=== PATIENT | male | born 1955 | race Caucasian/White ===

== ENCOUNTER 2016-06-22 04:01 | Emergency (ER) | payer MEDICAID, MEDICARE ==
[~2016-06-22] VITALS: Ht 195.6 cm; Wt 118.2 kg
[~2016-06-22 04:01] MED LIST: ALPR1TAB2 PO; FLUT9.9S NS; FURO40TA4 PO; LACT10SO60 PO; PANT40TA2 PO; SPIR100T3 PO; TR5C15 EXT
[2016-06-22 04:09] VITALS: BP 148/56; PULSE 66; RESP 18; O2SAT 98
--- NOTE | 2016-06-22 04:17 | ED.REPORT ---
HPI-General Illness Date of Service Jun 22, 2016 ED Provider: MD Prince This is a 61 year old male with a history of cirrhosis of the liver, chronic thrombocytopenia, hepatic encephalopathy, HTN, DM, GERD presenting to the ED complaining of generalized malaise that began 1 week ago. Associated symptoms include nausea, worsening SOB, and substernal chest pressure. Today he developed persistent hiccups. Denies vomiting, headache, dysuria, diarrhea, or constipation. Adds that his last dose of daily prescribed naltrexone was 3 days ago due to nausea. Nursing Notes Stated Complaint: CHEST PAIN Chief Complaint: Chest Pain Nursing Notes Reviewed: Yes Allergies: Coded Allergies: lisinopril (Verified Adverse Reaction, Intermediate, cough, 01/23/16) propranolol (Verified Adverse Reaction, Intermediate, PALPITATIONS, HEART RACES, 01/23/16) Scheduled Fluticasone Propionate (Flonase Allergy Relief) 50 Mcg/Actuation [place].susp 9.9 ML NS DAILY Furosemide (Furosemide) 40 Mg Tablet 40 MG PO MORNING Lactulose (Lactulose) 20 Gm/30 Ml Solution 50 GM PO TID Pantoprazole DR (Protonix) 40 Mg Tablet 40 MG PO DAILY Spironolactone (Spironolactone) 100 Mg Tablet 100 MG PO DAILY Scheduled PRN Alprazolam (Xanax) 1 Mg Tablet 1 MG PO TID PRN PRN For Anxiety Triamcinolone Acet (Triamcinolone Acetonide Cream) 4 Applic/Gm Cr 1 APPLIC EXT BID PRN PRN rash General Time Seen by MD: 04:17 Chief Complaint Not feeling well Hx Obtained From: Patient Arrived By: Walk-in Sudden in Onset?: Yes Onset Occurred: 1 week ago Symptom Duration: Since onset Severity: Current: Mild Pertinent Negative: Pt denies other symptoms Recent Healthcare: No recent doctor visit, No recent hospitalization Similar Sx Previous: No Past Medical History Past Medical History Notes: Admit November 13-2015 for hepatic encephalopathy, PTSD, and benzodiazepine dependency Past Medical History Cirrhosis of liver (ETOH) chronic thrombocytopenia History of high hepatic encephalopathy Hypertension diabetes GERD PTSD History of spinal stenosis History of heart murmur Reports: Diabetes mellitus, GERD, Hypertension Past Surgical History None Family History Father had multiple [place]'s with his first being in the 30's Smoking History Light Tobacco Smoker Social History History of alcohol abuse, last drink 3 months ago Alcohol Use: In recovery Other Social History: Good social support, , Local resident Occupation Retired [employer] Ambulatory Status Independent Review of Systems Full Review of Systems Constitutional: Reports: Malaise, Denies: Chills, Fever Respiratory: Reports: Shortness of breath Cardiovascular: Reports: Chest pain GI: Reports: Nausea, Denies: Abdominal pain, Constipation, Diarrhea, Vomiting Neurologic: Denies: Headache Complete sys rev & neg: except as marked. Physical Exam Vital Signs Vital Signs Date Time Temp Pulse Resp B/P Pulse Ox O2 Delivery O2 Flow Rate FiO2 06/22/16 04:09 36.6 66 18 148/56 98 Room Air Initial VS: Reviewed Head / Eyes: Atraumatic, Normocephalic, PERRL Neck: Supple, Non-tender, Full range of motion Respiratory: Breath sounds normal, Clear to auscultation, No respiratory distress Cardiovascular: Regular rate & rhythm, Heart sounds normal, Intact distal pulses Abdomen / GI: Soft, Non-tender Extremities: Vascular intact, Neuro intact, No swelling, No tenderness Skin: Warm, Dry, No cyanosis Neurologic: Alert, Oriented, Nonfocal Psychiatric: Mood/affect normal, Behavior normal, Normal thought content General/Constitutional: Awake, Alert Appearance / Presentation: Positive: Obese ENT: Pharynx NL Mouth: Positive: Mucous membranes dry Interpretation & Diagnostics Lab Results Interpretation Result Diagram: 06/22/16 0425 06/22/16 0425 Test 06/22/16 04:25 White Blood Count 5.4th/mm3 (3.8-10.1) Red Blood Count 4.60mil/mm3 (4.40-5.80) Hemoglobin 12.4g/dL (13.8-17.2) Hematocrit 37.4% (41.0-50.0) Mean Corpuscular Volume 81.3fL (81-100) Mean Corpuscular Hemoglobin 27.0pg (27.0-35.0) Mean Corpuscular Hemoglobin Concent 33.2% (32.0-37.0) Red Cell Distribution Width 16.6% (12.3-15.4) Platelet Count 109bil/L (150-400) Neutrophils (%) (Auto) 65.1% (40-74) Lymphocytes (%) (Auto) 17.5% (14-46) Monocytes (%) (Auto) 9.7% (4-12) Eosinophils (%) (Auto) 6.0% (0-5) Basophils (%) (Auto) 1.3% (0-3) Prothrombin Time 13.1sec (8.1-12.5) Prothromb Time International Ratio 1.22ratio Activated Partial Thromboplast Time 28.2sec (22.8-33.0) Sodium Level 136mEq/L (134-144) Potassium Level 3.9mEq/L (3.5-5.2) Chloride Level 102mEq/L (97-108) Carbon Dioxide Level 25mmol/L (18-29) Blood Urea Nitrogen 10mg/dL (6-24) Creatinine 0.46mg/dL (0.76-1.27) Estimat Glomerular Filtration Rate 199mL/min (>59) Glucose Level 214mg/dL (60-99) Calcium Level 8.3mg/dL (8.5-10.1) Magnesium Level 1.6mg/dL (1.6-2.6) Total Bilirubin 1.5mg/dL (0.0-1.2) Aspartate Amino Transf (AST/SGOT) 62U/L (0-50) Alanine Aminotransferase (ALT/SGPT) 41U/L (0-44) Alkaline Phosphatase 174U/L (25-160) Troponin T 0.010ug/L (0.0-0.011) Pro-B-Type Natriuretic Peptide 88.42pg/mL (0-210) Total Protein 6.8g/dL (6.4-8.4) Albumin 2.7g/dL (3.4-5.0) Hold Guerra Top Tube Received (Received) ECG Interpretation ECG Interpretation: NSR at a rate of 65 Time: 04:30 Interpreted by: ED physician Re-Eval/Medical Decision Med Decision/Clinical Course 61-year-old with cirrhosis, anxiety, PTSD, presents with chest pressure and pain associated with nausea and vomiting. This appears to be primarily result of nausea and vomiting and esophagitis, but await completion of rule out protocol. He may have some element of withdrawal from the ultrasound, as he stopped abruptly three days ago. He is given a dose here. Signed out at [address] Kebede for completion of rule out and disposition. Counseled Regarding: Diagnosis, Lab results, Need for follow-up Discharge & Departure Primary Impression: Chest pain Discharge Condition All VS Reviewed: Yes Condition: Stable Referrals: Peter Newman DO (PCP) Care Transferred to: Delio Stallworth Care Transferred at: 06:00 Scribe Attestation Portions of this note were transcribed by Sachin Bergeron. I, Dr. Morrison personally performed the history, physical exam and medical decision-making; I reviewed and confirmed the accuracy of the information in the transcribed note. Signed by: cristina Corbett. 06/21/2016, 04:30. Cristo Morrison MD Jun 22, 2016 04:17 SACHIN BERGERON Jun 22, 2016 04:27
[2016-06-22] MEDS ORDERED: 0.9% Sodium Chloride 1,000 ML IV ONE (04:24)
[2016-06-22] MEDS ORDERED: Pantoprazole 4 mg/mL 10 mL Inj IVPUSH ONE (04:25)
[2016-06-22] MEDS ORDERED: Promethazine Inj 25 MG in Dextrose 5%-Pha MIX 50 ML IV ONE ×2 (04:30→07:20)
[2016-06-22 04:38] LABS: BASOPHILS % (AUTO) 1.3 % (0-3); MONOCYTES % (AUTO) 9.7 % (4-12); Mean Corpuscular Volume 81.3 fL (81-100); NEUTROPHILS % (AUTO) 65.1 % (40-74); Platelet Count 109 bil/L (150-400)
[2016-06-22 05:04] LABS: INR 1.22 ratio
[2016-06-22 05:09] LABS: TROPONIN T 0.01 ug/L (0.0-0.011)
[2016-06-22 05:21] LABS: Magnesium 1.6 mg/dL (1.6-2.6)
[2016-06-22 08:24] LABS: Ammonia 112 ug/dL (18-53)
[2016-06-22] MEDS ORDERED: Lactulose 20 Gm/30 mL 30 mL Syrup PO ONE (08:50)
--- NOTE | 2016-06-22 09:25 | DRSVH ---
PROCEDURE: X-RAY CHEST ONE VIEW, PORTABLE ([id number]) INDICATIONS: cp TECHNIQUE: One view of the chest was acquired. COMPARISON: [facility], CR, XR CHEST 1VW (PORTABLE), 02/22/2015, 14:39. FINDINGS: Surgical changes and devices: None. Lungs and pleura: No pleural effusions or pneumothorax. Lungs are clear, aside from mild interstiti al prominence.. Mediastinum: Mediastinal contours appear normal. Heart size is enlarged. Bones and chest wall: No suspicious bony lesions. Overlying soft tissues appear unremarkable. IMPRESSION: Cardiomegaly and mild interstitial prominence suspicious for developing edema. Correlate clinically. Dictated by: Jaguar CARRILLO Interpreted: Tri Stern MD on 06/22/2016 at 9:25 Transcribed by: WESLEY on 06/22/2016 at 9:25 Approved by: Tri Stern M.D. on 06/22/2016 at 13:37
[2016-06-22] MEDS ORDERED: CHLO25CA10 PO (11:09)
[2016-06-22] MEDS ORDERED: LEVO330T2 PO (12:14)
[2016-06-22 12:29] VITALS: BP 145/84; PULSE 71; RESP 16; O2SAT 98
== END 2016-06-22 12:31 | disposition home or self-care (01) ==
LOC: SED 04:01
DX: R07.2 Precordial pain (principal); K76.9 Liver disease, unspecified; F41.8 Other specified anxiety disorders; F43.0 Acute stress reaction; G47.00 Insomnia, unspecified; F43.10 Post-traumatic stress disorder, unspecified; R11.0 Nausea; R06.02 Shortness of breath; R06.6 Hiccough; I10 Essential (primary) hypertension; K21.9 Gastro-esophageal reflux disease without esophagitis; E11.9 Type 2 diabetes mellitus without complications; F17.200 Nicotine dependence, unspecified, uncomplicated; Z88.8 Allergy status to other drugs, medicaments and biological substances
CPT/HCPCS: 36415; 71010; 80053; 82140; 82948; 83735; 83880; 84484; 85025; 85610; 85730; 90791; 93005; 96361; 96374; 96375; 96376; 99285; G0480; J2060; J7030

== ENCOUNTER 2016-07-03 22:31 | Inpatient (IN) | payer MEDICARE, MEDICAID ==
[~2016-07-03] VITALS: Ht 198.1 cm; Wt 129.9 kg
[~2016-07-03 22:31] MED LIST changes: +CHLO25CA10 PO; +LEVO330T2 PO
[2016-07-03 22:33] VITALS: BP 144/65; PULSE 83; RESP 18; O2SAT 100
[2016-07-03 23:14] LABS: Ammonia 118 ug/dL (18-53)
[2016-07-03 23:17] LABS: BASOPHILS % (AUTO) 0.7 % (0-3); EOSINOPHILS % (AUTO) 4.1 % (0-5); MONOCYTES % (AUTO) 6.4 % (4-12); Mean Corpuscular Hemoglobin 27.2 pg (27.0-35.0); Mean Corpuscular Volume 80.4 fL (81-100); NEUTROPHILS % (AUTO) 75.9 % (40-74); Platelet Count 100 bil/L (150-400)
[2016-07-03] MEDS ORDERED: Thiamine Inj 100 MG, Folic Acid Inj 1 MG, Magnesium Sulfate 50% Inj 2 GM, Multivitamins... IV ONE ×5 (23:45)
[2016-07-03 23:55] LABS: APPEARANCE,URINE CLEAR (CLEAR,HAZY); COLOR,URINE STRAW (YELLOW)
[2016-07-03 23:56] LABS: OCCULT BLOOD,URINE NEGATIVE (NEGATIVE); UROBILINOGEN,URINE NORMAL (NORMAL)
[2016-07-04] VITALS (10 sets, daily range): BP systolic 120–150; BP diastolic 70–83; PULSE 76–86; RESP 16–20; O2SAT 99–100
--- NOTE | 2016-07-04 00:05 | ED.REPORT ---
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 Patient says he feels fine otherwise aside from nausea and severe head pain on his left mastoid. Patient mentioned several times that he needs help with alcohol detoxification. Nursing Notes Stated Complaint: FALL DOWN STAIRS, ETOH Chief Complaint: Multiple Trauma/Fall Nursing Notes Reviewed: Yes Allergies: Coded Allergies: lisinopril (Verified Adverse Reaction, Intermediate, cough, 01/23/16) propranolol (Verified Adverse Reaction, Intermediate, PALPITATIONS, HEART RACES, 01/23/16) Scheduled ([Abilify]) MG PO DAILY ([Metformin]) MG PO BID ([mirtazapine]) MG PO HS Fluticasone Propionate (Fluticasone Propionate Nasal) 16 Gm [place].susp 1 SPRAY NS BID Furosemide (Furosemide) 40 Mg Tablet 40 MG PO DAILY Gabapentin (Gabapentin) 300 Mg Capsule 300 MG PO TID Levocarnitine (Levocarnitine) 330 Mg Tablet 330 MG PO DAILY Loratadine (Claritin) 10 Mg Capsule 10 MG PO DAILY Pantoprazole DR (Protonix) 40 Mg Tablet 40 MG PO DAILY Quetiapine Fumarate (Seroquel) 50 Mg Tablet 50 MG PO HS Spironolactone (Spironolactone) 100 Mg Tablet 100 MG PO DAILY Triamcinolone Acet (Triamcinolone Acetonide Cream) 4 Applic/Gm Cr 1 APPLIC TOP BID General Time Seen by MD: 21:50 Chief Complaint Other (alcohol intoxication and head trauma.) Hx Obtained From: Patient Sudden in Onset?: Yes Caused by: Accidental, Fall down stairs Location: : Hand right: Head (left mastoid) Past Medical History Past Medical History Notes: Admit November 13-2015 for hepatic encephalopathy, PTSD, and benzodiazepine dependency Past Medical History Cirrhosis of liver (ETOH) chronic thrombocytopenia History of high hepatic encephalopathy Hypertension diabetes GERD PTSD History of spinal stenosis History of heart murmur Reports: Diabetes mellitus, GERD, Hypertension Past Surgical History None Family History Father had multiple [place]'s with his first being in the 30's Smoking History Current Every Day Smoker Social History History of alcohol abuse, last drink 3 months ago Alcohol Use: In recovery Other Social History: Good social support, , Local resident Occupation Retired [employer] Ambulatory Status Independent Review of Systems A comprehensive review of systems was conducted with the patient and found to be negative except as above in the History of Present Illness. Physical Exam General: No acute distress, well-developed, well-nourished, appropriately interactive HEENT: Normocephalic, Left mastoid minor laceration without repair. External ears without defect with b/l cerumen impactions. Pupils equal, round, and reactive to light and accommodation. Anicteric sclerae, moist conjunctivae, and no lid lag. Oropharynx free of erythema and cobble stoning with moist mucosa. Neck: Supple with full range of motion. No jugular venous distension. No bruits. No lymphadenopathy or thyromegaly. Cardiovascular: Regular rate and rhythm with no murmurs, rubs, or gallops appreciated Pulmonary: Clear to auscultation bilaterally with no crackles, wheezes, or rhonchi. Normal respiratory effort with no use of accessory muscles. Abdomen: Bowel tones present. Soft and obese, nontender, nondistended. Significant hepatomegaly present no masses appreciated. Extremities: No clubbing, cyanosis, edema, or lymphadenopathy appreciated. Right hand abrasion present. Skin: Normal temperature, turgor, and texture; no rash, ulcers, or subcutaneous nodules appreciated. Neurological: Cranial nerves grossly intact. Normal muscle strength, tone, and bulk. Reflexes, coordination, and sensory function within normal limits. Ataxia with no ambulatory aid devices. Psychiatric: Normal mood and affect with alcohol intoxication. Alert and oriented to person, place, and time. Vital Signs Vital Signs Date Time Temp Pulse Resp B/P Pulse Ox O2 Delivery O2 Flow Rate FiO2 07/03/16 22:33 36.7 83 18 144/65 100 Room Air Interpretation & Diagnostics Lab Results Interpretation Result Diagram: 07/03/16224507/03/162245 Test 07/03/16 22:45 07/03/16 22:46 07/03/16 22:50 Hold Guerra Top Tube Received (Received) White Blood Count 7.1th/mm3 (3.8-10.1) Red Blood Count 5.14mil/mm3 (4.40-5.80) Hemoglobin 14.0g/dL (13.8-17.2) Hematocrit 41.3% (41.0-50.0) Mean Corpuscular Volume 80.4fL (81-100) Mean Corpuscular Hemoglobin 27.2pg (27.0-35.0) Mean Corpuscular Hemoglobin Concent 33.9% (32.0-37.0) Red Cell Distribution Width 16.8% (12.3-15.4) Platelet Count 100bil/L (150-400) Neutrophils (%) (Auto) 75.9% (40-74) Lymphocytes (%) (Auto) 12.6% (14-46) Monocytes (%) (Auto) 6.4% (4-12) Eosinophils (%) (Auto) 4.1% (0-5) Basophils (%) (Auto) 0.7% (0-3) Prothrombin Time 12.1sec (8.1-12.5) Prothromb Time International Ratio 1.13ratio Sodium Level 136mEq/L (134-144) Potassium Level 3.6mEq/L (3.5-5.2) Chloride Level 99mEq/L (97-108) Carbon Dioxide Level 21mmol/L (18-29) Blood Urea Nitrogen 9mg/dL (6-24) Creatinine 0.62mg/dL (0.76-1.27) Estimat Glomerular Filtration Rate 141mL/min (>59) Glucose Level 327mg/dL (60-99) Calcium Level 8.9mg/dL (8.5-10.1) Magnesium Level 1.7mg/dL (1.6-2.6) Total Bilirubin 1.4mg/dL (0.0-1.2) Aspartate Amino Transf (AST/SGOT) 53U/L (0-50) Alanine Aminotransferase (ALT/SGPT) 39U/L (0-44) Alkaline Phosphatase 187U/L (25-160) Ammonia 118ug/dL (18-53) Total Protein 8.2g/dL (6.4-8.4) Albumin 3.6g/dL (3.4-5.0) Alcohol, Quantitative 136mg/dL (0-10) Urine Color Straw (YELLOW) Urine Appearance Clear (CLEAR,HAZY) Urine pH 6.0 (5.0-8.0) Urine Specific Kathleen 1.005 (1.003-1.035) Urine Protein Negativemg/dL (NEG,TRACE) Urine Glucose (UA) >1000mg/dL (NEGATIVE) Urine Ketones Negativemg/dL (NEGATIVE) Urine Occult Blood Negative (NEGATIVE) Urine Nitrite Negative (NEGATIVE) Urine Bilirubin Negative (NEGATIVE) Urine Urobilinogen Normalmg/dL (NORMAL) Urine Leukocyte Esterase Negative (NEGATIVE) Urine RBC 0-2/hpf (0-2) Urine WBC 0-5/hpf (0-5) Urine Epithelial Cells Occasional/hpf (NONE-MOD) Urine Crystals None seen (NONE SEEN) Urine Bacteria None/hpf (NONE-FEW) Urine Hyaline Casts None/lpf (NONE) Urine Granular Casts None seen (NONE SEEN) Urine Waxy Casts None seen (NONE SEEN) Urine Red Blood Cell Casts None seen (NONE SEEN) Urine White Blood Cell Casts None seen (NONE SEEN) Urine Mucus None seen (None Seen) Urine Trichomonas None seen (NONE SEEN) Urine Yeast None (NONE SEEN) Urine Culture Reflexed Not indicated Re-Eval/Medical Decision Med Decision/Clinical Course 61-year-old with chronic alcohol abuse and cirrhosis, presents intoxicated and wishing for detox. He is variably reported his drinking as heavily and daily, and then later only having relapsed recently. He states he is unable to quit drinking without assistance, but has been through detox efforts before with brief periods of sobriety. Given his significant liver disease, his chronic hyperammonemia, and his past track record, it is felt that he would best be observed in inpatient setting for withdrawal. His psychosocial issues are long-term and of proven difficult to treat, but he may benefit from a long-term detox placement. Admitted now stable condition to the medicine service. Mr. Ghassan Moore is a 61-year-old male with a history of PTSD, alcoholic liver cirrhosis Child-Pitt class B, diabetes type II, hypertension, and normal pressure hydrocephalus reported to the ED by way of EMS after a fall down 7 stone stairs with head injury with loss of consciousness after alcohol intoxication. Patient says he feels fine otherwise aside from his severe head pain on his left mastoid. Patient mentioned several times that he needs help with alcohol detoxification. His ammonia is 118 and alcohol levels 136 as well as glucose at 327. He has significant alcohol liver cirrhosis and noncompliance of medications at home. He has significant pain in his left mastoid after his fall CT brain and cervical spine showed no fractures or other acute abnormalities. We will admit him for alcohol withdrawal. In the emergency department he received 1 L banana bag, 1 L normal saline, 1 mg IV Ativan, 15mg IV Toradol, 8mg Zofran IV. Time of Eval: 23:51 Patient Status: Condition improved Re-Evaluation/Progress Note: Patient is rechecked. Further history is obtained. He is informed of his results and the current treatment plan. All of the patient's questions are addressed. Patient understands and agrees with the plan. Discharge & Departure Shift Change Sign-Out Response to Therapy: Improved Primary Impression: Alcohol intoxication Additional Impressions: Alcohol withdrawal Cirrhosis Hepatic encephalopathy Disposition: ADMITTED TO HOSPITAL Referrals: Peter Newman DO (PCP) Scribe Attestation Portions of this note were transcribed by Ginny Champagne. I, Dr. Morrison personally performed the history, physical exam and medical decision-making; I reviewed and confirmed the accuracy of the information in the transcribed note. Signed by: Osbaldo Kelly, 07/04/16 0100. PARDEEP YANEZ DO Jul 04, 2016 00:05 GINNY CHAMPAGNE Jul 04, 2016 00:52 Cristo Morrison MD Jul 04, 2016 06:52
[2016-07-04] MEDS ORDERED: 0.9% Sodium Chloride 1,000 ML IV ONE (00:10)
[2016-07-04] MEDS ORDERED: Ketorolac 15 mg/mL Inj IVPUSH ONE (00:50)
[2016-07-04] MEDS ORDERED: Ondansetron 2 mg/mL 2 mL Inj IVPUSH ONE (00:50)
[2016-07-04] MEDS ORDERED: Thiamine Inj 100 MG, Folic Acid Inj 1 MG, Magnesium Sulfate 50% Inj 2 GM, Multivitamins... IV ONE ×5 (01:40)
[2016-07-04] MEDS ORDERED: Polyethylene Glycol (PEG) 17 Gm Powder PO PRN (01:40)
[2016-07-04] MEDS ORDERED: Alum-Mag Hydrox-Simeth 30 mL Suspension PO PRN (01:40)
[2016-07-04] MEDS ORDERED: MIRT30TA6 PO (03:16)
[2016-07-04] MEDS ORDERED: Metformin PO (03:16)
[2016-07-04] MEDS ORDERED: PANT40TA2 PO (03:16)
[2016-07-04] MEDS ORDERED: QUET50TA PO (03:16)
[2016-07-04] MEDS ORDERED: TR5C15 TOP (03:16)
[2016-07-04] MEDS ORDERED: GABA-502 PO (03:16)
[2016-07-04] MEDS ORDERED: Abilify PO (03:16)
[2016-07-04] MEDS ORDERED: FURO40TA4 PO (03:16)
[2016-07-04] MEDS ORDERED: FLUT16SP NS (03:16)
[2016-07-04] MEDS ORDERED: SPIR100T3 PO (03:16)
[2016-07-04] MEDS ORDERED: LEVO330T PO (03:16)
[2016-07-04] MEDS ORDERED: LORA10CA PO (03:17)
[2016-07-04] MEDS ORDERED: mirtazapine PO (03:19)
--- NOTE | 2016-07-04 04:11 | NUR ---
Admit: Pt admitted to [facility] room 2025. pt placed on Tele showing SR. Vitals stable. Health history and med rec completed via pt interview. pt unsure of some medication dosing- flagged for review. CIWA scored @13- 5mg IV valium. 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 Care ongoing.
[2016-07-04] MEDS ORDERED: Glucose 40% Oral Gel 15 Gm Tube PO PRN (04:50)
[2016-07-04 04:51] LABS: INR 1.13 ratio
--- NOTE | 2016-07-04 05:15 | PCM.HPMED ---
Subjective Date of Service Jul 04, 2016 Primary Provider: Admitting Physician: Zainab Edwards DO Primary Care Physician: Peter Newman DO Attending Physician: Zainab Edwards DO Chief Complaint: Alcohol intoxication History of Present Illness: Patient is a 61-year-old male with a history of PTSD, alcoholic liver cirrhosis Child-Pitt class B, diabetes type II, hypertension, and normal pressure hydrocephalus. He presented to [facility] via EMS after alcohol intoxication and a fall down 7 stone stairs with head injury and loss of consciousness. He reports nausea and severe head pain on his left mastoid. In the ED the patient asked for help with alcohol withdrawal. At the time of this H&P patient has a pounding headache L>R sensitive to light and sound. He reports having drunk two 25 oz beers with 10% alcohol content tonight. He states he has been drinking to varying levels on different days and reports not being able to string together even three weeks of sobriety. He is frustrated that past attempts at detox have failed but is interested in trying again. In the ED the patient was afebrile with a heart rate of 83, respiratory rate of 18, blood pressure 144/65 and O2 saturation of 100% on room air. Labs are remarkable for platelets 100, total bilirubin 1.4, AST 53, Alk phos 187, ammonia [address] of the head and neck showed no acute abnormalities. Patient admitted for alcohol withdrawal. Discussed with Dr. Paredes. Review of Systems: A comprehensive review of systems was conducted with the patient and found to be negative except as above in the history of present illness. Allergies Coded Allergies: lisinopril (Verified Adverse Reaction, Intermediate, cough, 01/23/16) propranolol (Verified Adverse Reaction, Intermediate, PALPITATIONS, HEART RACES, 01/23/16) Home Medications Per [facility]: Abilify 5 mg every day Carnitor 330 mg tablet take 1 tablet by oral route 1 times every day with meals Cialis 20 mg tablet take 1 tablet by oral route as directed prior to sexual activity Claritin 10 mg tablet take 1 tablet by oral route every day Flonase 50 mcg/actuation nasal spray,suspension USE ONE SPRAY IN EACH NOSTRIL DAILY NEEDED Furosemide 40 mg every day Metformin 500 mg tablet take 1 tablet by oral route 2 times every day with morning and evening meals Miralax 17 gram oral powder packet take 1 packet by oral route every day mixed with 8 oz. water, juice, soda, coffee or tea Mirtazapine 15 mg tablet take 2 tablet by oral route every day before bedtime PROTONIX 40MG TAKE ONE TABLET BY MOUTH ONE TIME DAILY Quetiapine 25 mg tablet take 1 tablet by oral route 3 times every day Spironolactone 100 mg tablet take 1 tablet by oral route every day Triamcinolone acetonide 0.5 % topical cream APPLY A THIN LAYER TO THE AFFECTED AREA(S) TWICE DAILY. Xifaxan 550 mg tablet take 1 tablet by oral route 2 times every day PMH Social History Hx Alcohol Use: Yes Alcoholic Drinks Per Day: 25 oz beers x2 Hx Substance Use: No Hx Tobacco Use: Yes (cigars) Smoking Status: Current Every Day Smoker Exam Vital Signs Vital Sign - Last Date Time Temp Pulse Resp B/P Pulse Ox O2 Delivery O2 Flow Rate FiO2 07/04/16 02:29 86 07/04/16 02:15 36.7 18 138/81 99 Room Air Intake and Output 07/03/16 07/03/16 07/04/16 Cumulative From/Thru 15:00 23:00 07:00 07/03/16 22:33 - 07/04/16 02:16 Intake Total 2000 ml 2000 ml Output Total 800 ml 1200 ml 2000 ml Balance -800 ml 800 ml 0 ml Intake IV Total 2000 ml 2000 ml Output Urine Total 800 ml 1200 ml 2000 ml Exam General: No acute distress, well-developed, well-nourished, shaky, anxious Head normocephalic, Left mastoid minor laceration without repair. Pupils equal, round, and reactive to light and accommodation. Anicteric sclerae , moist conjunctivae, and no lid lag. Mucus membranes moist, no oral thrush observed Neck: Supple with full range of motion. No jugular venous distension. No bruits. No lymphadenopathy or thyromegaly. Cardiovascular: Regular rate and rhythm with no murmurs, rubs, or gallops appreciated Pulmonary: Clear to auscultation bilaterally with no crackles, wheezes, or rhonchi. Normal respiratory effort with no use of accessory muscles. Abdomen: Bowel tones present. Soft and obese, nontender, nondistended. Significant hepatomegaly present no masses appreciated. No fluid wave appreciated. Extremities: No clubbing, cyanosis, edema, or lymphadenopathy appreciated. Right hand abrasion present. Skin: Normal temperature, turgor, and texture; no rash, ulcers, or subcutaneous nodules appreciated. Neurological: Cranial nerves grossly intact. Normal muscle strength, tone, and bulk. Reflexes, coordination, and sensory function within normal limits. Ataxia with no ambulatory aid devices. Psychiatric: Normal mood and affect with alcohol intoxication. Alert and oriented to person, place, and time. Lab and Diagnostics Result Diagram: 07/03/16224507/03/162245 X-Rays, CTs and MRIs CT head and neck with no acute abnormality per the ED report. Await formal radiology read in AM. Assessment & Plan Patient is a 61-year-old male with a history of PTSD, alcoholic liver cirrhosis Child-Pitt class B, diabetes type II, hypertension, and normal pressure hydrocephalus. He presented to [facility] via EMS after alcohol intoxication and a fall down 7 stone stairs with head injury and loss of consciousness. CT head/ neck showed no acute abnormality. Patient voiced desire for alcohol detox. CIAL protocol begun and admitted to [facility]. 1. Alcohol withdrawal, acute, present on admission. - CIWA protocol ordered and available. - Patient encouraged to be honest and upfront about symptoms for adequate valium dosing. - Thiamine ordered 100 mg daily. - Multivitamin ordered daily. - No history of seizures with withdrawal but will continue to monitor closely. 2. S/p fall and head injury and LOC, acute, present on admission. - Patient with continued headache. Initial head CT normal. - Low threshold to repeat head CT. - Will try to avoid use of narcotics for pain relief due to patient's advanced liver disease. Ibuprofen available 600 mg TID PRN. Try to use sparingly. 3. Alcoholic liver cirrhosis with hepatic encephalopathy, chronic, presume stable. - Continue furosemide 40 mg daily, spironolactone 100 mg daily, and xifaxan 550 mg BID. - Not currently encephalopathic. Will defer use of lactulose. - Total bilirubin, AST, alk phos elevated. Continue to monitor CMP. - INR ordered and pending. 4. Type 2 diabetes mellitus, chronic, presume stable. - Last A1c reportedly 7.8 (date unknown). - Continue metformin 500 mg BID. - Low dose correction scale available as needed. 5. PTSD, chronic, presume stable. - Continue abilify 5 mg daily, quetiapine 25 mg TID, and mirtazapine 30 mg HS. - Bowel regimen available PRN. - Antacid available PRN. - Antiemetic available PRN. Patient admitted under inpatient status with expected length of stay greater than 2 midnights for severity of present symptoms, complexities of treatment plan and risk for adverse events. PCP Peter Newman DO What Job Titles Mean Dakota Ellis MD Neurologist Hans Lamar MD GI Prophylaxis: Proton Pump Inhibitor VTE Prophylaxis: SCDs Resuscitation Status: CPR: Attempt Resuscitation Attending Statement The patient was seen and examined together with house staff on 07/04 and I agree with the history, exam and plan as outlined in the note above. copies to: Peter Newman Jennifer E DO Jul 04, 2016 04:55 Zainab Edwards DO Jul 06, 2016 06:03
[2016-07-04] MEDS: Ondansetron 2 mg/mL 2 mL Inj IVPUSH PRN ×2 (06:11→11:20)
[2016-07-04] MEDS ORDERED: FOLIC ACID IV ONE ×5 (07:18)
[2016-07-04] MEDS ORDERED: MULTIVITAMIN IV ONE ×5 (07:18)
[2016-07-04] MEDS ORDERED: [UNRECOGNIZED DRUG - OTHER] IV ONE ×5 (07:18)
[2016-07-04] MEDS ORDERED: THIAMINE IV ONE ×5 (07:18)
[2016-07-04 08:03] LABS: BASOPHILS % (AUTO) 0.9 % (0-3); EOSINOPHILS % (AUTO) 5.3 % (0-5); Mean Corpuscular Volume 82.2 fL (81-100); NEUTROPHILS % (AUTO) 67.4 % (40-74); Platelet Count 79 bil/L (150-400)
--- NOTE | 2016-07-04 08:20 | DRSVH ---
PROCEDURE: CT BRAIN WITHOUT CONTRAST ([id number]) INDICATIONS: fall down stairs/ETOH TECHNIQUE: Noncontrast 4.5 mm thick angled axial sections acquired from the foramen magnum to the vertex, with c oronal reformats. COMPARISON: [facility], NM, NM CISTERNOGRAM, 04/15/2015, 15:33. [facility], CT, CT BRAIN W&WO CON, 11/15/2015, 16:44. [facility], CT, CT BRAIN WO CON, 11/24/2015, 15 :04. FINDINGS: Image quality: Excellent. CSF spaces: Basal cisterns are patent. No extra-axial fluid collections. The ventricles are symmet rically dilated. Brain: No intracranial bleeds or masses. There is mild cerebral volume loss for age, with resultant ventricular and sulcal prominence. There are mild periventricular and deep white matter chronic sma ll vessel ischemic changes. There is intracranial internal carotid artery atherosclerosis. Skull and face: Calvarium and visualized facial bones appear intact, without suspicious lesions. Sinuses: Visualized sinuses and mastoids are clear. IMPRESSION: 1. No acute intracranial abnormalities. 2. Symmetrical dilation of cervical ventricles bilaterally suggesting normal pressure hydrocephalus. Recommend clinical correlation. Dictated by: West Zhang M.D. on 07/04/2016 at 8:17 Approved by: West Zhang M.D. on 07/04/2016 at 8:20
--- NOTE | 2016-07-04 08:25 | DRSVH ---
PROCEDURE: CT CERVICAL SPINE WITHOUT CONTRAST ([id number]) INDICATIONS: Fall down stairs TECHNIQUE: Noncontrast 3 mm thick sections acquired from the skull base to the T4 level. Sagittal and coronal r eformats were then constructed. For radiation dose reduction, the following was used: automated exp osure control, adjustment of mA and/or kV according to patient size. COMPARISON: None. FINDINGS: Image quality: Excellent. Bones: No fractures or dislocations. Visualized superior ribs are intact. There is a severe jewel blocker and sawyer ior longitudinal ligament calcification/ossification with large osteophytes causing severe central ca nal stenosis at C3-C4 and C4-C5, moderate central canal stenosis at C2-C3 and C6-C7, and mild central canal stenosis at C5-C6. Soft tissues: Prevertebral soft tissues are normal in thickness. No paravertebral hematomas. No ap ical pneumothoraces. IMPRESSION: 1. No fracture in cervical spine. 2. Extensive posterior longitudinal ligament calcification/ossification causing severe central canal stenosis in cervical spine as described. No significant discrepancy with the shift superintendent radiology preliminary report. Dictated by: West Zhang M.D. on 07/04/2016 at 8:20 Approved by: West Zhang M.D. on 07/04/2016 at 8:25
--- NOTE | 2016-07-04 08:35 | NUR ---
Neuro At approximately 0830 patient reporting worsening headache, black spot in right eye, unable to track with penlight. Right eye slower to respond with PEARLA, 4mm. Left eye 2mm. Patient reporting side of head under ear pain due to fall last night. Notified MD. Care continues.
[2016-07-04] MEDS: Multivit-Miner-Folic Acid-Iron Tablet PO SCH (08:39)
[2016-07-04] MEDS: Pantoprazole 40 mg ER24 Tablet PO SCH (08:40)
[2016-07-04] MEDS: Insulin LISPRO 300 Unit/3 mL Inj SUBQ SCH ×4 (08:52→21:10)
--- NOTE | 2016-07-04 09:17 | NUR ---
MRI Patient off floor via wheelchair at approximately 0915 to MRI, front desk monitor notified. Addendum: 07/04/16 at 0920 by LI FAUST RN CT Patient off floor for CT and MRI. Addendum: 07/04/16 at 1109 by LI FAUST RN Returned from MRI/CT Patient complaining of nausea and headache. This RN to administer medication appropriately. Notified
--- NOTE | 2016-07-04 09:40 | DRSVH ---
PROCEDURE: CT BRAIN WITHOUT CONTRAST ([id number]) INDICATIONS: head trauma TECHNIQUE: Noncontrast 4.5 mm thick angled axial sections acquired from the foramen magnum to the vertex, with c oronal reformats. COMPARISON: [facility], CT, CT BRAIN WO CON, 11/24/2015, 15:04. [facility], CT, CT BRAIN WO CON, 07/03/2016, 23:01. FINDINGS: Image quality: Excellent. CSF spaces: Basal cisterns are patent. No extra-axial fluid collections. Ventricles are symmetrica lly dilated but unchanged. Brain: No midline shift. No intracranial masses or hemorrhage. Brito-white matter interface is norm al. Skull and face: Calvarium and visualized facial bones are intact, without suspicious lesions. Sinuses: Visualized sinuses and mastoids are clear. IMPRESSION: 1. No acute intracranial abnormalities. 2. Symmetrical dilatation of cerebral ventricles suggesting normal pressure hydrocephalus. A differen tial diagnosis is central atrophy. Dictated by: West Zhang M.D. on 07/04/2016 at 9:37 Approved by: West Zhang M.D. on 07/04/2016 at 9:39
--- NOTE | 2016-07-04 11:24 | DRSVH ---
PROCEDURE: MRI STROKE PROTOCOL ([id number]) Pre- and post-contrast brain MRI, non-contrast brain MR angiogram, pre- and postcontrast neck MR jaylan ogram INDICATIONS: altered mental status TECHNIQUE: Brain: Noncontrast axial T1 spin echo, axial T2 fast spin echo, sagittal and axial FLAIR, coronal T2 fast spin echo, axial gradient echo, axial diffusion and ADC through the brain. After the administr ation of contrast, axial 3D VIBE of the cranial vasculature and brain. Brain MRA: Non-contrast 3-D time of flight MR angiogram, with multiple nhjwxhf-evqvzwtly-ishyrzbuqs (MIP) reformats performed. Neck MRA: Axial and sagittal TruFISP through the neck. Coronal dynamic MR angiogram during administ ration of contrast in the arterial and venous phases, with 3-dimenstional knuoanp-xdqdsyzwz-ydhbizqcv n (MIP) reformats constructed from subtraction images. COMPARISON: [facility], CT, CT BRAIN WO CON, 01/28/2015, 20:42. [facility], CT, CT BRAIN WO CON, 07/04/2016, 9:18. [facility], CT, CT BRAIN WO CON, 07/03/2016, 23:01. [facility], CT, CT BRAIN WO CON, 11/24/2015, 15:04. FINDINGS: Image quality: Excellent. BRAIN: CSF spaces: Ventricles are normal in size and shape. Basal cisterns are patent. No extra-axial flu id collections. Brain: No intracranial bleeds or mass effects. Brito-white matter interface is normal. Diffusion we ighted images show no acute ischemic insults. Brainstem appears normal. Normal intravascular flow v oids are present. No abnormal intracranial enhancement. Skull and face: Calvarial marrow signal is normal. Orbits appear normal. Sinuses: Sinuses and mastoids are clear. BRAIN MR ANGIOGRAM: Anterior circulation: Intracranial internal carotid arteries are normal in size and enhancement. Th e flow within the paired anterior cerebral arteries is normal and symmetric. The flow within the mid dle cerebral arteries is normal and symmetric. The anterior communicating artery is seen. No stenos es, occlusions, or aneurysms. Posterior circulation: The visualized portions of the vertebral arteries demonstrate asymmetric geoff nant right and diminutive left superior vertebral arterial caliber, and join to form a normal appeari ng basilar artery. The flow within the posterior cerebral arteries is normal and symmetric. No sten oses, occlusions, or aneurysms. NECK MR ANGIOGRAM: Carotids: Great vessels demonstrate a conventional anatomy as they arise from the aortic arch. The origins of the common carotid arteries appear patent. The calibers and courses of both common caroti d arteries are normal. The bifurcation regions appear normal bilaterally. The internal carotid antoine paula demonstrate normal course and caliber. Posterior circulation: The origins of the vertebral arteries appear patent. More superior portions of both vertebral arteries demonstrate normal course and caliber, and join to form a normal appearing basilar artery. Miscellaneous: Subclavian arteries appear patent. Pre-contrast images through the neck show no soft tissue abnormalities. IMPRESSION: BRAIN MRI: Minimal microvascular atherosclerotic change in the deep white matter of each hemisphere. No acute or subacute stroke is found. Source of TIA symptoms is not identified. BRAIN MR ANGIOGRAM: Normal intracranial MR angiogram with note made of a diminutive left superior ve rtebral artery and a strongly dominant right vertebral artery superiorly. This is a normal anatomic variant. NECK MR ANGIOGRAM: Excellent appearance of the proximal internal carotid arteries and throughout the ir course cephalad into the skull base. No brachiocephalic arterial stenosis is suspected. The estimate of stenosis included in the report of the imaging study was calculated using the NASCET method Dictated by: Lane Tyson M.D. on 07/04/2016 at 11:16 Approved by: Lane Tyson M.D. on 07/04/2016 at 11:22
[2016-07-04] MEDS: oxyCODONE ER 10 mg ER12 Tablet PO SCH ×2 (13:10→21:06)
--- NOTE | 2016-07-04 14:25 | PCM.PNMED ---
Subjective Date of Service Jul 04, 2016 Subjective Patient is a 61-year-old male with a history of PTSD, alcoholic liver cirrhosis Child-Pitt class B, diabetes type II, hypertension, and normal pressure hydrocephalus. Admitted for ground level fall, loss of consciousness, head trauma, alcohol withdrawal. Hospital Day 1 Overnight: Per ED note patient presented after alcohol intoxication and a fall down 7 stone stairs with head injury and loss of consciousness. He reports nausea and severe head pain on his left mastoid. In the ED the patient asked for help with alcohol withdrawal. Labs done in ED are remarkable for platelets 100, total bilirubin 1.4, AST 53, Alk phos 187, ammonia [address] of the head and neck showed no acute abnormalities, chronic changes consistent with past history of normal pressure hydrocephalus. Today: Patient stated that he didn't know what happened that he went to his car after drinking, was sitting in his car decided not to drive drunk, walked back up stairs to his home and lost conciousness and fell down seven steps. "I have never lost consciousness before in my life." Patient noted that he has a pounding headache from the back left of his head with radiation to the front, a blind/blurry spot in the lower right area of his vision in his right eye, his right eye is extremely sensitive to light, he feels very nauseous and unstable on his feet. Patient stated that he feel very anxious and tremulous. Patient denies diarrhea, loss of bowel or bladder control, fever, chills, vomiting, numbness tingling, weakness. ROS negative except as mentioned above Exam Vital Signs Vital Sign - Last Date Time Temp Pulse Resp B/P Pulse Ox O2 Delivery O2 Flow Rate FiO2 07/04/16 02:29 86 07/04/16 02:15 36.7 18 138/81 99 Room Air Intake and Output 07/03/16 07/03/16 07/04/16 Cumulative From/Thru 15:00 23:00 07:00 07/03/16 22:33 - 07/04/16 06:06 Intake Total 2600 ml 2600 ml Output Total 800 ml 1650 ml 2450 ml Balance -800 ml 950 ml 150 ml Intake Oral 600 ml 600 ml IV Total 2000 ml 2000 ml Output Urine Total 800 ml 1650 ml 2450 ml Exam General: Alert, Oriented X3, Cooperative, mild agitation, ataxic gait Head: Normocephalic, hematoma, abrasions, superficial laceration, over left mastoid process, dried blood over left mastoid. External ears normal no CSF fluid noted on exam. Cranium is intact no crepitus felt. Eyes: Right eye slower to react than left eye, appear slightly larger than left , extraocular motions slow, mild horizontal nystagmus present. Anicteric sclerae. Mouth: Mouth Normal, Mucous Membranes Moist/[place] Neck: Neck supple with full range of motion. minimal tenderness to palpation, no crepitus felt Chest & Lungs: Clear to auscultation bilaterally with no crackles, wheezes, or rhonchi. Cardiovascular: Regular Rate/Rhythm, Normal S1, Normal S2, No Murmurs/Rubs/ Gallops Abdomen: Non-tender, Non-distended, No masses, Normoactive bowel tones, Soft Musculoskeletal: Normal Range of Motion Extremities: No cyanosis/clubbing/edema bilaterally Neurological: Cranial Nerves 2-12 Intact, slowed speech, patient unable to repeat the phrase "banana, bag, abraham," strength Normal 4/4 ext, Normal Gait, Sensation Intact, Cerebellar Function nl Finger-Nose, ataxic gait Lab and Diagnostics Result Diagram: 07/03/16224507/03/162245 X-Rays, CTs and MRIs CT head and neck with no acute abnormality per the ED report. Await formal radiology read in AM. Assessment & Plan Patient is a 61-year-old male with a history of PTSD, alcoholic liver cirrhosis Child-Pitt class B, diabetes type II, hypertension, and normal pressure hydrocephalus. Admitted for ground level fall, loss of consciousness, head trauma, alcohol withdrawal. Hospital Day 1 1. Alcohol withdrawal, acute, present on admission. - Continue [facility] protocol - Start Chlordiazepoxide taper 50 mg PO QID today 07/04/16, 50 mg PO TID 07/05/16 , 50 mg PO BID 07/06, 50 mg PO HS 07/07 - 500 Thiamine IV ordered, - Thiamine ordered 100 mg daily. - Multivitamin ordered daily. - No history of seizures with withdrawal but will continue to monitor closely. 2. S/p fall and head injury and LOC, acute, present on admission. - Patient with continued headache. Initial head CT normal. - Acute worsening of symptoms noted with visual field defect, discussed case with Neurology agree to proceed with Repeat CT and MRI of brain - Repeat CT no interval change from initial head CT - MRI brain ordered no acute signs of stroke, no intracranial bleed, no dissection of cerebral arteries/veins. - Oxycodone 10 mg PO for headache, monitor response - Neurology recommends discontinuing oxycodone and start IV Valproic Acid 1,000 mg over 50 minutes if headache persists - Neurology consulted, we appreciate their time, expertise, and recommendations 3. Alcoholic liver cirrhosis with hepatic encephalopathy, chronic, presume stable. - Continue furosemide 40 mg daily, spironolactone 100 mg daily, and xifaxan 550 mg BID. - Not currently encephalopathic. - Hold lactulose. Reassess mentation pericolically - Total bilirubin, AST, alk phos elevated. Continue to monitor CMP. - INR 1.3 4. Type 2 diabetes mellitus, chronic, presume stable. - Last A1c reportedly 7.8, repeat pending. - Stop metformin 500 mg BID. - Low dose correction scale available as needed. - Continue to monitor 5. PTSD, chronic, presume stable. - Continue abilify 5 mg daily, quetiapine 25 mg TID, and mirtazapine 30 mg HS. - Bowel regimen available PRN. - Antacid available PRN. - Antiemetic available PRN. CODE STATUS: FULL CODE DISPOSITION: Likely discharge to home within 48 hours pending negative MRI results, clearance by neurology, and ETOH withdrawal symptoms. PCP Peter Newman DO Artificial Pearl Maker Dakota Ellis MD Neurologist Hans Lamar MD GI Prophylaxis: Proton Pump Inhibitor VTE Prophylaxis: SCDs VTE Mechanical Devices: Intermittant Pneumatic CD Resuscitation Status: CPR: Attempt Resuscitation Attending Statement The patient was seen and examined together with Dr. Aly on 07/04/2016 and I agree with the history, exam and plan as outlined in the note above. . VIBHA ALY DO Jul 04, 2016 07:13 Blake Piper MD Jul 04, 2016 15:26
--- NOTE | 2016-07-04 14:47 | CONS ---
[address] [address] CONSULTATION REPORT PATIENT: SEEMA BECERRIL : 1955 MR#: [id number] ADMIT: 07/04/2016 JOB ID: [id number] DATE OF SERVICE: 07/04/2016 CHIEF COMPLAINT: New onset headache after hitting his head. REQUESTING PROVIDER: Dr. Ornelas HISTORY OF PRESENTING ILLNESS: The patient is a pleasant 61-year-old man with multiple medical problems including a history of alcoholic liver cirrhosis, diabetes, hypertension, and post-traumatic stress disorder, who is well known to me, who reportedly relapsed and drank beer and then hit his head and fell down seven stone stairs with a head injury and loss of consciousness. Reportedly he hit the left occipital head region of his head and has since noted new onset of headaches, primarily coming from this region, however also associated with a black spot over his right visual field. He does report a history of remote headaches in the past. He does not have a longstanding history of migraine. Pain is primarily over the left mastoid and left occipital head region. Ammonia level was 118 alcohol level 136, glucose 327. He does have a history of alcoholic liver cirrhosis. He is interested in pursuing long-term detox therapy. In the emergency department he received 1 L banana bag, 1 L normal saline, 1 mg IV Ativan, 50 mg IV Toradol, and 8 mg Zofran IV. He reports that he did not note any significant improvement in his headache with the IV Toradol. He has received now oxycodone 10 mg. He reports that he tried Imitrex in the past and he reports he did not note any relief in his headache with this and noted increased blood pressure and the development of side effects. I reviewed his CT of the head, which demonstrated no acute intracranial abnormalities. Symmetrical dilatation of the central cerebral ventricles. I reviewed his MRI which demonstrated minimal microvascular atherosclerotic changes in the deep white matter of each hemisphere. No acute or subacute stroke was found. Normal intracranial MR angiogram with note made of a diminutive left superior vertebral artery and a strongly dominant right vertebral artery superiorly. This is a normal anatomic variant. Excellent appearance of the proximal internal carotid arteries and throughout their course cephalad into the skull base. No brachiocephalic arterial stenosis noted. REVIEW OF SYSTEMS: A complete review of systems was performed and was remarkable for above noted. MEDICATIONS: Include Abilify, Carnitor, Cialis, Claritin, Flonase, furosemide, metformin, MiraLAX, mirtazapine, Protonix, quetiapine, spironolactone, triamcinolone, Xifaxan. ALLERGIES: LISINOPRIL AND PROPRANOLOL. PAST MEDICAL HISTORY: As above noted. SOCIAL HISTORY: An occasional cigar. No cigarettes. No substance abuse. He does smoke cigars every day. Usually does not use alcohol other than the above noted. This was a relapse. LABORATORY STUDIES: WBC of 7.1, hemoglobin 14.0, hematocrit 41.3, and platelets of 100. Chemistries: Sodium 136, potassium 3.6, chloride 99, bicarb 21, BUN 9, creatinine 0.62, glucose 327; that was when he came in. Total bilirubin 1.4, AST 53, ALT 39, alkaline phosphatase 187. Glucose today down to 293. Calcium 8.4. Coags: PT was 12.1, INR 1.13. Urinalysis: Occasional urine epithelial cells. PHYSICAL EXAMINATION: Temperature 36.7, pulse of 79, respiratory rate of 20, blood pressure 150/83, pulse oximetry 100% on room air. General: Well-developed, well-nourished man in no acute distress. Head: Normocephalic, atraumatic. Neck: Supple. No carotid bruits were auscultated. Chest: Clear to auscultation. Heart: Regular rate and rhythm. Abdomen: Soft, nondistended, nontender. Extremities: No cyanosis, clubbing, or edema. NEUROLOGIC EXAMINATION: He is awake, alert, oriented x3. Speech clear and fluent, with intact comprehension. There was no aphasia. Cranial nerves: Pupils equal, round, and reactive to light. Extraocular movements were smooth and conjugate, with no evidence of nystagmus. Face appeared symmetrical. Facial sensation was intact to light touch and temperature. Auditory sensation was intact to finger rub. Palatal elevation was symmetrical. Tongue was midline. Sternocleidomastoids and trapezii were 5/5 bilaterally. Motor: Normal tone and bulk. Muscle strength 5/5 throughout. Sensation diminished in a bilateral stocking and glove distribution to light touch and temperature. Deep tendon reflexes were diminished throughout; however, symmetrical. Plantars are silent. Coordination: [id number] was intact without evidence of dysmetria. Gait was deferred. IMPRESSION: 1. Concussion. 2. Likely concussion related migraine headache given that he does have photophobia and has noted that the pain is throbbing and unilateral. He has also noted some nausea. No phonophobia was noted. RECOMMENDATIONS: Agree with the plan of oxycodone. If no improvement with that I do recommend a cocktail of medications to break his migraine headache including Depakote 1000 mg IV to be given over 15 minutes. 8 mg subcutaneous sumatriptan, preceded by 0.5 mg of lorazepam IV. Benadryl 25 mg IV. If no improvement on this regimen, repeating Toradol 15 mg IM. I would also keep an eye on his laboratory studies and order labs for tomorrow. I do notice that his platelets are low and there may be a temporary drop in platelets as a potential side effect of the IV Depakote; however, as is not maintenance Depakote, there will most likely be a rebound of his platelets. If, after completion of this IV cocktail there is no improvement, I would give 0.5 mg IV Dilaudid. Thank you, again, Dr. Ornelas, for allowing me to participate in the care of our mutual patient. I do see him as an outpatient. Please feel free to contact me with any questions or concerns. ROSINA
[2016-07-04] MEDS: chlordiazePOXIDE 25 mg Capsule PO SCH ×2 (15:47→21:07)
[2016-07-04] MEDS ORDERED: chlordiazePOXIDE 25 mg Capsule PO SCH (16:30)
[2016-07-05] VITALS (7 sets, daily range): BP systolic 124–151; BP diastolic 69–82; PULSE 72–85; RESP 16–20; O2SAT 95–99
[2016-07-05 03:22] LABS: BASOPHILS % (AUTO) 1.5 % (0-3); EOSINOPHILS % (AUTO) 7.1 % (0-5); MONOCYTES % (AUTO) 8.4 % (4-12); Mean Corpuscular Hemoglobin 26.9 pg (27.0-35.0); Mean Corpuscular Volume 82.3 fL (81-100); Platelet Count 76 bil/L (150-400)
[2016-07-05 03:33] LABS: INR 1.15 ratio
[2016-07-05 03:51] LABS: Magnesium 1.8 mg/dL (1.6-2.6)
--- NOTE | 2016-07-05 03:54 | NUR ---
belongings Pt knife confiscated by day nurse, locked in med drawer. Knife taken by security to patient safe at 0349.
[2016-07-05] MEDS: Insulin LISPRO 300 Unit/3 mL Inj SUBQ SCH ×4 (09:33→20:31)
[2016-07-05] MEDS: chlordiazePOXIDE 25 mg Capsule PO SCH ×2 (09:37→12:05)
[2016-07-05] MEDS: Multivit-Miner-Folic Acid-Iron Tablet PO SCH (09:37)
[2016-07-05] MEDS: Pantoprazole 40 mg ER24 Tablet PO SCH (09:38)
--- NOTE | 2016-07-05 11:00 | NUR ---
Social Work: Initial Assessment/Chemical Dependency D: Per EMR review, pt is a 61 year old male admitted for Alcohol withdrawal. Pt is Medicare with no supplement but states he has [facility] benefits in process. PCP is Peter Newman DO. NOK Is Chiquita Moore, , . Advanced directives not completed but information offered to pt by INDUSTRIAL SOCIOLOGIST. Readmit score is moderate, 5/8. INDUSTRIAL SOCIOLOGIST met with pt at bedside. Sw role explained. See initial assessment. Pt lives in [facility] with his . He is I at baseline and continues to drive. He has never had or skilled rehab. Pt states he is interested in chemical dependency treatment for his alcohol abuse. Pt states he recently relapsed after 30 days sober. He reports drinking 2-3 25 oz cans of beer daily during relapse but also drinking bourbon as well. Pt states he has been drinking for 50 years with his longest period of sobriety being 3 years. Pt states his family is "riddled with alcoholics but no one ever told me how dangerous the stuff was for me." Pt states that he has never have ETOH/withdrawal related seizures but experiences shakes, nausea, vomiting and cold sweats. Pt [facility] but does not want to go there again. INDUSTRIAL SOCIOLOGIST provided pt with outpatient resources contacted with Medicare along with 28/12 Crisis Line adn 28/12 CD support phone numbers. Pt also requested a list of local AA meetings- INDUSTRIAL SOCIOLOGIST was able to print a list of local meetings from the AA website and provided to pt who was very grateful. A: pt who is I at baseline. P: Anticipate pt to discharge home via POV and follow up with CD resources once medically stable; INDUSTRIAL SOCIOLOGIST to continue to follow. ZAID Remy Addendum: 07/05/16 at 1120 by ACLVIN FARRAR Amended: Links added.
[2016-07-05] MEDS ORDERED: Valproate Sodium Inj 1,000 MG in Dextrose 5% 100 ML IV ONE (11:40)
[2016-07-05] MEDS: oxyCODONE ER 10 mg ER12 Tablet PO SCH ×2 (12:06→20:30)
[2016-07-05] MEDS ORDERED: Divalproex (QD) 250 mg ER24 Tablet PO SCH (12:24)
[2016-07-05] MEDS ORDERED: chlordiazePOXIDE 25 mg Capsule PO ONE (16:15)
--- NOTE | 2016-07-05 17:17 | PCM.PNMED ---
Subjective Date of Service Jul 05, 2016 Subjective Ghassan Moore is a 61-year-old male with a history of PTSD, alcoholic liver cirrhosis Child-Pitt class B, diabetes type II, hypertension, and normal pressure hydrocephalus. Admitted for ground level fall, loss of consciousness, head trauma, alcohol withdrawal. Hospital Day 2. Overnight: No acute events overnight. Today: Patient is stating that he is not ready to be discharged yet as he still feels like he is withdrawing. He denies any nausea, vomiting, abdominal pain, chest pain, or palpitations. He does however still complains of a headache which is partially relieved by Oxycodone. ROS negative except as mentioned above. Exam Vital Signs Vital Sign - Last Date Time Temp Pulse Resp B/P Pulse Ox O2 Delivery O2 Flow Rate FiO2 07/05/16 16:48 36.5 81 18 126/69 98 Room Air Intake and Output 07/04/16 07/04/16 07/05/16 Cumulative From/Thru 15:00 23:00 07:00 07/03/16 22:33 - 07/05/16 06:58 Intake Total 1000 ml 1067 ml 977 ml 5644 ml Output Total 1100 ml 250 ml 3800 ml Balance 1000 ml -33 ml 727 ml 1844 ml Intake Oral 1067 ml 977 ml 2644 ml IV Total 1000 ml 3000 ml Output Urine Total 1100 ml 250 ml 3800 ml # Voids 2 2 Exam General: Alert, oriented X3, cooperative, mild agitation, ataxic gait Head: Normocephalic, hematoma, abrasions, superficial laceration, over left mastoid process, dried blood over left mastoid. External ears normal no CSF fluid noted on exam. Eyes: Right eye slower to react than left eye, appear slightly larger than left , extraocular motions slow, mild horizontal nystagmus present. Anicteric sclerae. Mouth: Mouth Normal, Mucous Membranes Moist/[place] Neck: Neck supple with full range of motion. minimal tenderness to palpation, no crepitus felt Chest & Lungs: Clear to auscultation bilaterally with no crackles, wheezes, or rhonchi. Cardiovascular: Regular Rate/Rhythm, Normal S1, Normal S2, No Murmurs/Rubs/ Gallops Abdomen: Non-tender, Non-distended, No masses, Normoactive bowel tones, Soft Musculoskeletal: Normal Range of Motion Extremities: No cyanosis/clubbing/edema bilaterally Neurological: Cranial Nerves 2-12 Intact, slowed speech, strength Normal 4/4 ext , Normal Gait, Sensation Intact, Cerebellar Function nl Finger-Nose, ataxic gait IVs and Medications Medications Reviewed: Medications were reviewed in detail Lab and Diagnostics Result Diagram: 07/05/1631207/05/16312 X-Rays, CTs and MRIs CT BRAIN WITHOUT CONTRAST IMPRESSION: 1. No acute intracranial abnormalities. 2. Symmetrical dilation of cervical ventricles bilaterally suggesting normal pressure hydrocephalus. Recommend clinical correlation. Dictated by: West Zhang M.D. on 07/04/2016 at 8:17 CT CERVICAL SPINE WITHOUT CONTRAST IMPRESSION: 1. No fracture in cervical spine. 2. Extensive posterior longitudinal ligament calcification/ossification causing severe central canal stenosis in cervical spine as described. Dictated by: West Zhang M.D. on 07/04/2016 at 8:20 CT BRAIN WITHOUT CONTRAST IMPRESSION: 1. No acute intracranial abnormalities. 2. Symmetrical dilatation of cerebral ventricles suggesting normal pressure hydrocephalus. A differential diagnosis is central atrophy. Dictated by: West Zhang M.D. on 07/04/2016 at 9:37 MRI STROKE PROTOCOL MRI, non-contrast brain MR angiogram, pre- and postcontrast neck MR angiogram IMPRESSION: BRAIN MRI: Minimal microvascular atherosclerotic change in the deep white matter of each hemisphere. No acute or subacute stroke is found. Source of TIA symptoms is not identified. BRAIN MR ANGIOGRAM: Normal intracranial MR angiogram with note made of a diminutive left superior vertebral artery and a strongly dominant right vertebral artery superiorly. This is a normal anatomic variant. NECK MR ANGIOGRAM: Excellent appearance of the proximal internal carotid arteries and throughout their course cephalad into the skull base. No brachiocephalic arterial stenosis is suspected. The estimate of stenosis included in the report of the imaging study was calculated using the NASCET method Dictated by: Lane Tyson M.D. on 07/04/2016 at 11:16 Assessment & Plan Ghassan Moore is a 61-year-old male with a history of PTSD, alcoholic liver cirrhosis Child-Pitt class B, diabetes type II, hypertension, and normal pressure hydrocephalus. Admitted for ground level fall, loss of consciousness, head trauma, alcohol withdrawal. Hospital Day 2. 1. Alcohol withdrawal, acute, present on admission, active. - Continue CIWA protocol - Start Chlordiazepoxide taper 50 mg PO QID 07/04/16, 50 mg PO TID 07/05/16, 50 mg PO BID 07/06, 50 mg PO HS 07/07 - 500 Thiamine IV given - Thiamine ordered 100 mg daily - Multivitamin ordered daily - No history of seizures with withdrawal but will continue to monitor closely 2. Concussion with post concussive headache, acute, present on admission, active - Patient with continued headache. Initial head CT normal. - Acute worsening of symptoms noted with visual field defect, discussed case with Neurology agree to proceed with repeat CT and MRI of brain - Repeat CT with no interval change from initial head CT - MRI brain ordered no acute signs of stroke, no intracranial bleed, no dissection of cerebral arteries/veins. - Oxycodone 10 mg PO for headache, monitor response - Neurology recommends discontinuing oxycodone and start IV Valproic Acid 1,000 mg over 50 minutes if headache persists, however due to the patient's hepatic impairment will give 250 mg of Depakote - Neurology consulted, we appreciate their time, expertise, and recommendations 3. Alcoholic liver cirrhosis with hepatic encephalopathy, chronic, stable - Continue furosemide 40 mg daily, spironolactone 100 mg daily, and rifaximin 550 mg BID. - Not currently encephalopathic. - Hold lactulose. Reassess mentation pericolically - Total bilirubin, AST, alk phos mild elevated. Continue to monitor CMP. 4. Type 2 diabetes mellitus, chronic, poorly controlled. - Last A1c reportedly 7.8, repeat showing 8.7 - Hold metformin 500 mg BID - Low dose correction scale available as needed - Continue to monitor 5. PTSD, chronic, presume stable. - Continue Abilify 5 mg daily, quetiapine 25 mg TID, and mirtazapine 30 mg HS. - Bowel regimen available PRN. - Antacid available PRN. - Antiemetic available PRN. CODE STATUS: FULL CODE DISPOSITION: Discharge home tomorrow. PCP Peter Newman DO Explosive Operator Dakota Ellis MD Neurologist Hans Lamar MD GI Prophylaxis: Proton Pump Inhibitor VTE Prophylaxis: SCDs VTE Mechanical Devices: Intermittant Pneumatic CD Resuscitation Status: CPR: Attempt Resuscitation Attending Statement The patient was seen and examined together with Dr. Guevara on 07/05/2016 and I agree with the history, exam and plan as outlined in the note above. . Maggi Guevara DO Jul 05, 2016 17:17 Blake Piper MD Jul 10, 2016 16:26
--- NOTE | 2016-07-05 18:32 | NUR ---
Mentation Patient exhibiting increase change in mentation after giving Depakote. Became verbal, angry and obstinate with in room and directed toward this RN. Redirected patient. Consulted with Pharmacists. Notified Neurologist. Neuro aware and changed medication order. Pt now exhibiting appropriate behavior.
[2016-07-05] MEDS ORDERED: chlordiazePOXIDE 25 mg Capsule PO SCH (20:30)
[2016-07-06 00:20] VITALS: BP 117/66; PULSE 86; RESP 20; O2SAT 97
[2016-07-06 04:00] LABS: BASOPHILS % (AUTO) 0.9 % (0-3); EOSINOPHILS % (AUTO) 8.5 % (0-5); MONOCYTES % (AUTO) 11.5 % (4-12); Mean Corpuscular Hemoglobin 27.1 pg (27.0-35.0); Mean Corpuscular Volume 82.9 fL (81-100); NEUTROPHILS % (AUTO) 62.2 % (40-74); Platelet Count 72 bil/L (150-400)
[2016-07-06 04:27] VITALS: BP 143/84; PULSE 85; RESP 24; O2SAT 98
[2016-07-06] MEDS ORDERED: chlordiazePOXIDE 25 mg Capsule PO SCH (08:30)
[2016-07-06] MEDS ORDERED: Divalproex (QD) 500 mg ER24 Tablet PO SCH (08:30)
[2016-07-06 09:06] VITALS: BP 147/95; PULSE 84; RESP 18; O2SAT 98
[2016-07-06] MEDS: oxyCODONE ER 10 mg ER12 Tablet PO SCH (09:12)
[2016-07-06] MEDS: Pantoprazole 40 mg ER24 Tablet PO SCH (09:12)
[2016-07-06] MEDS: Multivit-Miner-Folic Acid-Iron Tablet PO SCH (09:12)
[2016-07-06] MEDS: Insulin LISPRO 300 Unit/3 mL Inj SUBQ SCH ×2 (09:13→12:10)
[2016-07-06] MEDS ORDERED: CHLO25CA10 PO (10:29)
[2016-07-06] MEDS ORDERED: PREN1TAB25 PO (10:29)
[2016-07-06] MEDS ORDERED: Thiamine PO (10:29)
--- NOTE | 2016-07-06 10:43 | PCM.DIMED ---
Discharge Instructions Date of Service Jul 06, 2016 Dates of Hospitalization Jul 04, 2016 at 01:17 Discharge Diagnosis Discharge Diagnosis 1. Alcohol withdrawal, acute, present on admission, improved 2. Concussion with post concussive headache, acute, present on admission, improved 3. Alcoholic liver cirrhosis with hepatic encephalopathy, chronic, improved 4. Type 2 diabetes mellitus, chronic, poorly controlled. 5. PTSD, chronic, presume stable. Diet Diabetic Activity Limited until seen by PCP Call your provider Fever or Chills, Shortness of breath, Bleeding, Chest pain, Vomitting, Excessive diarrhea, Weakness (unilateral) Patient Instructions Follow up with PCP in one week Follow up with Dr. Pepper at next appointment Stop Metformin, as this can cause problems with your liver and kidneys, Follow up with your PCP to discuss alternative measures to control you blood sugars. At time of discharge your last blood sugar was rechecked at 240. Continue other home medications Continue to rest and limit screen time to less than 15 min per day for the next 1-2 weeks. Continue Librium taper 50 mg once tonight and 50 mg once tomorrow night Continue Thiamine 100 mg by mouth once daily Continue vitamin once daily by mouth You ammoina levels have trended up during your visit, you have not had any changes in mentation, we are starting you on lactulose to bring down you ammonia levels Take Lactulose three times a day by mouth, if you have greater than two bowel movements a day take 2 doses, if you continue to have greater than two bowel movements per day take one dose per day. Follow up with alcohol detox programs provided by social work Recommend outpatient abstinence program such as AA Seek emergency medical care if you experience sudden loss of vision, balance, fainting, Follow-up plan as above Follow-up Provider: Peter Newman DO Follow-up with PCP in: 1 week Provider: Hans Lamar MD Follow-up in: 1 week VIBHA ALY DO Jul 06, 2016 10:43
[2016-07-06] MEDS ORDERED: Lactulose 20 Gm/30 mL 30 mL Syrup PO SCH (11:20)
[2016-07-06 11:23] VITALS: PULSE 90
[2016-07-06] MEDS ORDERED: LACT10SO60 PO (11:33)
--- NOTE | 2016-07-06 11:45 | NUR ---
JEANNINE Signed ZAID Liu
--- NOTE | 2016-07-06 11:45 | NUR ---
Social Work Note: Discharge Data& Assessment: Per pt is medically ready for discharge. SW met with pt at bedside to confirm discharge plan and assess for any unmet needs. Ghassan Moore is a 61 year old male admitted on 07/04/2016 for alcohol withdrawal. Per pt is medically improved and ready to discharge home via POV. Pt has been provided with CD resources. Pt confirmed plan to discharge home via POV, his will be transporting him home today after she gets off work at 4:30p.m. Pt denies any other needs. No other discharge needs identified. Plan: Per pt is medically improved and ready to discharge home via POV at 4:30p.m.. Pt has been provided with CD resources. Pt denies any other needs. No other discharge needs identified. ZAID Liu
[2016-07-06 12:17] VITALS: BP 146/79; PULSE 85; RESP 18; O2SAT 97
--- NOTE | 2016-07-06 16:12 | NUR ---
Discharge of patient Reviewed discharge instructions with patient and patient's . Patient verbalized understanding. Patient discharged via wheelchair with prescriptions and instructions. IV and Telemetry previously discontinued. Patient left hospital with to home self care.
--- NOTE | 2016-07-06 17:51 | PCM.DC.MED ---
Discharge Summary Date of Service Jul 06, 2016 Dates of Hospitalization Date of Hospital Admission Jul 04, 2016 at 01:17 Date of Discharge: Jul 06, 2016 Providers: Admitting Physician: Zainab Edwards DO Primary Care Physician: Peter Newman DO Attending Physician: Zainab Edwards DO Diagnosis at Time of Discharge Diagnosis at Time of Discharge 1. Alcohol withdrawal, acute, present on admission, improved 2. Concussion with post concussive headache, acute, present on admission, improved 3. Alcoholic liver cirrhosis with hepatic encephalopathy, chronic, improved 4. Type 2 diabetes mellitus, chronic, poorly controlled. 5. PTSD, chronic, presume stable. Consultations Neurology Procedures XRay, CTs & MRIs CT BRAIN WITHOUT CONTRAST IMPRESSION: 1. No acute intracranial abnormalities. 2. Symmetrical dilation of cervical ventricles bilaterally suggesting normal pressure hydrocephalus. Recommend clinical correlation. Dictated by: West Zhang M.D. on 07/04/2016 at 8:17 CT CERVICAL SPINE WITHOUT CONTRAST IMPRESSION: 1. No fracture in cervical spine. 2. Extensive posterior longitudinal ligament calcification/ossification causing severe central canal stenosis in cervical spine as described. Dictated by: West Zhang M.D. on 07/04/2016 at 8:20 CT BRAIN WITHOUT CONTRAST IMPRESSION: 1. No acute intracranial abnormalities. 2. Symmetrical dilatation of cerebral ventricles suggesting normal pressure hydrocephalus. A differential diagnosis is central atrophy. Dictated by: West Zhang M.D. on 07/04/2016 at 9:37 MRI STROKE PROTOCOL MRI, non-contrast brain MR angiogram, pre- and postcontrast neck MR angiogram IMPRESSION: BRAIN MRI: Minimal microvascular atherosclerotic change in the deep white matter of each hemisphere. No acute or subacute stroke is found. Source of TIA symptoms is not identified. BRAIN MR ANGIOGRAM: Normal intracranial MR angiogram with note made of a diminutive left superior vertebral artery and a strongly dominant right vertebral artery superiorly. This is a normal anatomic variant. NECK MR ANGIOGRAM: Excellent appearance of the proximal internal carotid arteries and throughout their course cephalad into the skull base. No brachiocephalic arterial stenosis is suspected. The estimate of stenosis included in the report of the imaging study was calculated using the NASCET method Dictated by: Lane Tyson M.D. on 07/04/2016 at 11:16 Brief History Copied from H&P "Patient is a 61-year-old male with a history of PTSD, alcoholic liver cirrhosis Child-Pitt class B, diabetes type II, hypertension, and normal pressure hydrocephalus. He presented to [facility] via EMS after alcohol intoxication and a fall down 7 stone stairs with head injury and loss of consciousness. He reports nausea and severe head pain on his left mastoid. In the ED the patient asked for help with alcohol withdrawal. At the time of this H&P patient has a pounding headache L>R sensitive to light and sound. He reports having drunk two 25 oz beers with 10% alcohol content tonight. He states he has been drinking to varying levels on different days and reports not being able to string together even three weeks of sobriety. He is frustrated that past attempts at detox have failed but is interested in trying again. In the ED the patient was afebrile with a heart rate of 83, respiratory rate of 18 , blood pressure 144/65 and O2 saturation of 100% on room air. Labs are remarkable for platelets 100, total bilirubin 1.4, AST 53, Alk phos 187, ammonia [address] of the head and neck showed no acute abnormalities. Patient admitted for alcohol withdrawal." Hospital Course Ghassan Moore is a 61-year-old male with a history of PTSD, alcoholic liver cirrhosis Child-Pitt class B, diabetes type II, hypertension, and normal pressure hydrocephalus. Admitted for ground level fall, loss of consciousness, head trauma, alcohol withdrawal. 1. Alcohol withdrawal, acute, present on admission, improved - Continued CIWA protocol - Continued Chlordiazepoxide taper 50 mg PO QID 07/04/16, 50 mg PO TID 07/05/16, 50 mg PO BID 07/06, 50 mg PO HS 07/07 - 500 Thiamine IV given once - Continued thiamine ordered 100 mg daily - Continued multivitamin daily - Ammonia elevated at time of discharge, patient refused lactulose - No history of seizures with withdrawal but will continue to monitor closely 2. Concussion with post concussive headache, acute, present on admission, active - Patient with continued headache. Initial head CT normal. - Acute worsening of symptoms noted with visual field defect, discussed case with Neurology agree to proceed with repeat CT and MRI of brain - Repeated CT with no interval change from initial head CT - MRI brain ordered no acute signs of stroke, no intracranial bleed, no dissection of cerebral arteries/veins. - Oxycodone 10 mg PO for headache, monitored response - Neurology recommended discontinuing oxycodone and start IV Valproic Acid 1, 000 mg over 50 minutes if headache persists, however due to the patient's hepatic impairment gave 250 mg of Depakote 3. Alcoholic liver cirrhosis with hepatic encephalopathy, chronic, stable - Continued furosemide 40 mg daily, spironolactone 100 mg daily, and rifaximin 550 mg BID. - Was not encephalopathic. Recommend lactulose as outpatient due to elevated ammonia, patient refused - Total bilirubin, AST, alk phos mild elevated. 4. Type 2 diabetes mellitus, chronic, poorly controlled. - Last A1c reportedly 7.8, repeat showing 8.7 - Hold metformin 500 mg BID, - Patient had elevated blood glucose, given 5 units of insulin prior to discharge - Recommend close follow up with PCP to address elevated blood glucose and alternative medication to metformin due to hepatic impairment 5. PTSD, chronic, presume stable. - Continued Abilify 5 mg daily, quetiapine 25 mg TID, and mirtazapine 30 mg HS. Exam Vital Signs (Last) Date Time Temp Pulse Resp B/P Pulse Ox O2 Delivery O2 Flow Rate FiO2 07/06/16 12:17 36.5 85 18 146/79 97 Room Air Exam General: Alert, oriented X3, cooperative, mild agitation, ataxic gait Head: Normocephalic, hematoma, abrasions, superficial laceration, over left mastoid process, dried blood over left mastoid. External ears normal no CSF fluid noted on exam. Eyes: Right eye slower to react than left eye, appear slightly larger than left , extraocular motions slow, mild horizontal nystagmus present. Anicteric sclerae. Mouth: Mouth Normal, Mucous Membranes Moist/Shaniko Neck: Neck supple with full range of motion. minimal tenderness to palpation, no crepitus felt Chest & Lungs: Clear to auscultation bilaterally with no crackles, wheezes, or rhonchi. Cardiovascular: Regular Rate/Rhythm, Normal S1, Normal S2, No Murmurs/Rubs/ Gallops Abdomen: Non-tender, Non-distended, No masses, Normoactive bowel tones, Soft Musculoskeletal: Normal Range of Motion Extremities: No cyanosis/clubbing/edema bilaterally Neurological: Cranial Nerves 2-12 Intact, slowed speech, strength Normal 4/4 ext , Normal Gait, Sensation Intact, Cerebellar Function nl Finger-Nose, ataxic gait Test 07/03/16 22:45 07/03/16 22:46 07/03/16 22:50 07/04/16 07:50 Hold Guerra Top Tube Received (Received) Alcohol, Quantitative 136mg/dL (0-10) Urine Color Straw (YELLOW) Urine Appearance Clear (CLEAR,HAZY) Urine pH 6.0 (5.0-8.0) Urine Specific [place] 1.005 (1.003-1.035) Urine Protein Negativemg/dL (NEG,TRACE) Urine Glucose (UA) >1000mg/dL (NEGATIVE) Urine Ketones Negativemg/dL (NEGATIVE) Urine Occult Blood Negative (NEGATIVE) Urine Nitrite Negative (NEGATIVE) Urine Bilirubin Negative (NEGATIVE) Urine Urobilinogen Normalmg/dL (NORMAL) Urine Leukocyte Esterase Negative (NEGATIVE) Urine RBC 0-2/hpf (0-2) Urine WBC 0-5/hpf (0-5) Urine Epithelial Cells Occasional/hpf (NONE-MOD) Urine Crystals None seen (NONE SEEN) Urine Bacteria None/hpf (NONE-FEW) Urine Hyaline Casts None/lpf (NONE) Urine Granular Casts None seen (NONE SEEN) Urine Waxy Casts None seen (NONE SEEN) Urine Red Blood Cell Casts None seen (NONE SEEN) Urine White Blood Cell Casts None seen (NONE SEEN) Urine Mucus None seen (None Seen) Urine Trichomonas None seen (NONE SEEN) Urine Yeast None (NONE SEEN) Urine Culture Reflexed Not indicated Hemoglobin A1c 8.7% (4.8-5.6) Test 07/05/16 03:13 07/06/16 03:55 Prothrombin Time 12.3sec (8.1-12.5) Prothromb Time International Ratio 1.15ratio Magnesium Level 1.8mg/dL (1.6-2.6) Lipase 30U/L (13-60) White Blood Count 4.3th/mm3 (3.8-10.1) Red Blood Count 4.51mil/mm3 (4.40-5.80) Hemoglobin 12.2g/dL (13.8-17.2) Hematocrit 37.4% (41.0-50.0) Mean Corpuscular Volume 82.9fL (81-100) Mean Corpuscular Hemoglobin 27.1pg (27.0-35.0) Mean Corpuscular Hemoglobin Concent 32.6% (32.0-37.0) Red Cell Distribution Width 17.0% (12.3-15.4) Platelet Count 72bil/L (150-400) Neutrophils (%) (Auto) 62.2% (40-74) Lymphocytes (%) (Auto) 16.9% (14-46) Monocytes (%) (Auto) 11.5% (4-12) Eosinophils (%) (Auto) 8.5% (0-5) Basophils (%) (Auto) 0.9% (0-3) Sodium Level 136mEq/L (134-144) Potassium Level 4.3mEq/L (3.5-5.2) Chloride Level 100mEq/L (97-108) Carbon Dioxide Level 24mmol/L (18-29) Blood Urea Nitrogen 9mg/dL (6-24) Creatinine 0.86mg/dL (0.76-1.27) Estimat Glomerular Filtration Rate 97mL/min (>59) Glucose Level 345mg/dL (60-99) Calcium Level 8.6mg/dL (8.5-10.1) Total Bilirubin 0.8mg/dL (0.0-1.2) Aspartate Amino Transf (AST/SGOT) 49U/L (0-50) Alanine Aminotransferase (ALT/SGPT) 34U/L (0-44) Alkaline Phosphatase 174U/L (25-160) Ammonia 223ug/dL (18-53) Total Protein 6.8g/dL (6.4-8.4) Albumin 3.0g/dL (3.4-5.0) Discharge Medications Discharge Medications ([Abilify]) MG PO DAILY (Reported) ([Metformin]) MG PO BID (Reported) ([mirtazapine]) MG PO HS (Reported) ([Thiamine]) 100 MG TABLET 100 MG PO DAILY Prescribed by: VIBHA ORNELAS DO Chlordiazepoxide (Chlordiazepoxide) 25 Mg Capsule 50 MG PO HS Prescribed by: VIHBA ORNELAS DO Fluticasone Propionate (Fluticasone Propionate Nasal) 16 Gm [place].susp 1 SPRAY NS BID (Reported) Furosemide (Furosemide) 40 Mg Tablet 40 MG PO DAILY (Reported) Gabapentin (Gabapentin) 300 Mg Capsule 300 MG PO TID (Reported) Lactulose (Lactulose) 20 Gm/30 Ml Solution 20 GM PO TID Prescribed by: VIBHA ORNELAS DO Levocarnitine (Levocarnitine) 330 Mg Tablet 330 MG PO DAILY (Reported) Loratadine (Claritin) 10 Mg Capsule 10 MG PO DAILY (Reported) Pantoprazole DR (Protonix) 40 Mg Tablet 40 MG PO DAILY (Reported) Vit#96/Ferrous Fum/FA ( Tablet) 1 Each Tablet 1 TABLET PO DAILY Prescribed by: VIBHA ORNELAS DO Quetiapine Fumarate (Seroquel) 50 Mg Tablet 50 MG PO HS (Reported) Spironolactone (Spironolactone) 100 Mg Tablet 100 MG PO DAILY (Reported) Triamcinolone Acet (Triamcinolone Acetonide Cream) 4 Applic/Gm Cr 1 APPLIC TOP BID (Reported) Followup Plan Disposition: home Follow-up plan Follow up with PCP in one week Follow up with Dr. Pepper at next appointment Stop Metformin, as this can cause problems with your liver and kidneys, Follow up with your PCP to discuss alternative measures to control you blood sugars. At time of discharge your last blood sugar was rechecked at 240. Continue other home medications Continue to rest and limit screen time to less than 15 min per day for the next 1-2 weeks. Continue Librium taper 50 mg once tonight and 50 mg once tomorrow night Continue Thiamine 100 mg by mouth once daily Continue vitamin once daily by mouth You ammoina levels have trended up during your visit, you have not had any changes in mentation, we are starting you on lactulose to bring down you ammonia levels Take Lactulose three times a day by mouth, if you have greater than two bowel movements a day take 2 doses, if you continue to have greater than two bowel movements per day take one dose per day. Follow up with alcohol detox programs provided by social work Recommend outpatient abstinence program such as AA Seek emergency medical care if you experience sudden loss of vision, balance, fainting, Discharge Diet: Diabetic Discharge Activity: Limited until seen by PCP Patient Instructions Follow up with PCP in one week Follow up with Dr. Pepper at next appointment Stop Metformin, as this can cause problems with your liver and kidneys, Follow up with your PCP to discuss alternative measures to control you blood sugars. At time of discharge your last blood sugar was rechecked at 240. Continue other home medications Continue to rest and limit screen time to less than 15 min per day for the next 1-2 weeks. Continue Librium taper 50 mg once tonight and 50 mg once tomorrow night Continue Thiamine 100 mg by mouth once daily Continue vitamin once daily by mouth You ammoina levels have trended up during your visit, you have not had any changes in mentation, we are starting you on lactulose to bring down you ammonia levels Take Lactulose three times a day by mouth, if you have greater than two bowel movements a day take 2 doses, if you continue to have greater than two bowel movements per day take one dose per day. Follow up with alcohol detox programs provided by social work Recommend outpatient abstinence program such as AA Seek emergency medical care if you experience sudden loss of vision, balance, fainting, Follow-up Provider: Peter Newman DO Follow-up with PCP in: 1 week Provider: Hans Lamar MD Follow-up in: 1 week Time spent 35 minutes coordinating discharge Attending Statement patient seen and examined with Dr Ornelas .I agree with the history,exam, impression and plan as outlined above copies to: Peter Newman AARON J DO Jul 06, 2016 17:51 Markell Hannah MD Jul 06, 2016 18:46
[2016-07-07] MEDS ORDERED: chlordiazePOXIDE 25 mg Capsule PO SCH (21:00)
== END 2016-07-06 16:07 | disposition home or self-care (01) | DRG 897 ==
LOC: SED 22:31 → OSC 07-04 01:17 → PCC 07-04 01:44
PROVIDERS: ADMIT Internal Medicine; ATTEND Internal Medicine
DX: F10.239 Alcohol dependence with withdrawal, unspecified (principal); S06.0X9A Concussion with loss of consciousness of unspecified duration, initial encounter; G91.2 (Idiopathic) normal pressure hydrocephalus; E72.20 Disorder of urea cycle metabolism, unspecified; F10.229 Alcohol dependence with intoxication, unspecified; K70.30 Alcoholic cirrhosis of liver without ascites; Y90.6 Blood alcohol level of 120-199 mg/100 ml; S01.81XA Laceration without foreign body of other part of head, initial encounter; W10.9XXA Fall (on) (from) unspecified stairs and steps, initial encounter; K21.9 Gastro-esophageal reflux disease without esophagitis; E11.65 Type 2 diabetes mellitus with hyperglycemia; F43.12 Post-traumatic stress disorder, chronic; I10 Essential (primary) hypertension; Z72.0 Tobacco use; Y92.009 Unspecified place in unspecified non-institutional (private) residence as the place of occurrence of the external cause

== ENCOUNTER 2016-07-08 04:34 | Emergency (ER) | payer MEDICARE, MEDICAID ==
[~2016-07-08] VITALS: Ht 198.1 cm; Wt 120.5 kg
[~2016-07-08 04:34] MED LIST changes: -ALPR1TAB2 PO; +Abilify PO; +FLUT16SP NS; -FLUT9.9S NS; +GABA-502 PO; +LEVO330T PO; -LEVO330T2 PO; +LORA10CA PO; +Metformin PO; +PREN1TAB25 PO; +QUET50TA PO; -TR5C15 EXT; +TR5C15 TOP; +Thiamine PO; +mirtazapine PO
[2016-07-08 04:38] VITALS: BP 143/90; PULSE 86; RESP 16; O2SAT 97
--- NOTE | 2016-07-08 06:12 | ED.REPORT ---
HPI-General Illness Date of Service Jul 08, 2016 ED Provider: Allen Silva DO The patient is a 61 year old male with history of PTSD, alcoholic liver cirrhosis Child-Pitt class B, diabetes type II, hypertension, and normal pressure hydrocephalus, who presents to the emergency department mildly confused. The patient's states when she got home last night from work the patient had destroyed the house and was behaving erratically. She is concerned because when he has acted like this previously something has been wrong. He was admitted in the hospital from 07/04 to 07/06. He apparently hit his head during this admission and has noticed a headache over the last few days. He states, "this headache is unlike anything I have every had before. It feels like my head is going to explode." The patient also mentions episodes of ataxia which he states is due to alcoholism. His neurologist is Dr. Lamar and he is treated with lactulose and levocarnitine. He has not been taking his lactulose. His symptoms are similar to when his ammonia level has been high. Nursing Notes Stated Complaint: ATAXIA EPISODE Chief Complaint: General Complaint Nursing Notes Reviewed: Yes Allergies: Coded Allergies: lisinopril (Verified Adverse Reaction, Intermediate, cough, 01/23/16) propranolol (Verified Adverse Reaction, Intermediate, PALPITATIONS, HEART RACES, 01/23/16) Scheduled ([Abilify]) MG PO DAILY ([Metformin]) MG PO BID ([mirtazapine]) MG PO HS ([Thiamine]) 100 MG TABLET 100 MG PO DAILY Chlordiazepoxide (Chlordiazepoxide) 25 Mg Capsule 50 MG PO HS Fluticasone Propionate (Fluticasone Propionate Nasal) 16 Gm [place].susp 1 SPRAY NS BID Furosemide (Furosemide) 40 Mg Tablet 40 MG PO DAILY Gabapentin (Gabapentin) 300 Mg Capsule 300 MG PO TID Lactulose (Lactulose) 20 Gm/30 Ml Solution 20 GM PO TID Levocarnitine (Levocarnitine) 330 Mg Tablet 330 MG PO DAILY Loratadine (Claritin) 10 Mg Capsule 10 MG PO DAILY Pantoprazole DR (Protonix) 40 Mg Tablet 40 MG PO DAILY Vit#96/Ferrous Fum/FA ( Tablet) 1 Each Tablet 1 TABLET PO DAILY Quetiapine Fumarate (Seroquel) 50 Mg Tablet 50 MG PO HS Spironolactone (Spironolactone) 100 Mg Tablet 100 MG PO DAILY Triamcinolone Acet (Triamcinolone Acetonide Cream) 4 Applic/Gm Cr 1 APPLIC TOP BID General Time Seen by MD: 06:09 Chief Complaint Multip medical complaints Hx Obtained From: Patient, Spouse Arrived By: Walk-in Sudden in Onset?: No Onset Occurred: 2 days ago Symptom Duration: Since onset Location: : Head Quality: Painful Severity: Current: Severe Severity: Maximum: Severe Recent Healthcare: Recent doctor visit, Recent hospitalization Similar Sx Previous: Yes Past Medical History Past Medical History Notes: Admit November 13-2015 for hepatic encephalopathy, PTSD, and benzodiazepine dependency Past Medical History Cirrhosis of liver (ETOH) chronic thrombocytopenia History of high hepatic encephalopathy Hypertension diabetes GERD PTSD History of spinal stenosis History of heart murmur Reports: Diabetes mellitus, GERD, Hypertension Past Surgical History None Family History Father had multiple IA's with his first being in the 30's Smoking History Current Every Day Smoker Social History History of alcohol abuse, last drink 3 months ago Alcohol Use: In recovery Other Social History: Good social support, , Local resident Occupation Retired [employer] Ambulatory Status Independent Review of Systems +episodes of ataxia Full Review of Systems Neurologic: Reports: Confusion, Headache Complete sys rev & neg: except as marked. Physical Exam Vital Signs Vital Signs Date Time Temp Pulse Resp B/P Pulse Ox O2 Delivery O2 Flow Rate FiO2 07/08/16 07:08 73 13 114/44 98 Room Air 07/08/16 04:38 37.0 86 16 143/90 97 Room Air Initial VS: Reviewed Head / Eyes: Atraumatic, Normocephalic, PERRL ENT: Mucous membranes moist, Conjunctiva normal, No scleral icterus Neck: Supple, Non-tender, Full range of motion Respiratory: Breath sounds normal, Clear to auscultation, No respiratory distress Cardiovascular: Regular rate & rhythm, Heart sounds normal, Intact distal pulses Abdomen / GI: Soft, Non-tender, No guarding, No rebound, No distention Lymphatic: No lymphadenopathy Extremities: Vascular intact, Neuro intact, No swelling, No tenderness Skin: Warm, Dry, No cyanosis General/Constitutional: Awake Alertness: Positive: Confused (mildly) Neurologic: Oriented X3, Speech NL, No motor deficits, No sensory deficits Mental Status: Positive: Confused (mildly slow to respond, however, able to recall detailed evants of the past several days, and his detailed medical history.) Slow to respond Interpretation & Diagnostics Lab Results Interpretation Result Diagram: 07/08/16 0649 07/08/16 0649 Test 07/08/16 06:49 07/08/16 07:25 White Blood Count 5.6th/mm3 (3.8-10.1) Red Blood Count 5.02mil/mm3 (4.40-5.80) Hemoglobin 13.5g/dL (13.8-17.2) Hematocrit 40.9% (41.0-50.0) Mean Corpuscular Volume 81.5fL (81-100) Mean Corpuscular Hemoglobin 26.9pg (27.0-35.0) Mean Corpuscular Hemoglobin Concent 33.0% (32.0-37.0) Red Cell Distribution Width 17.0% (12.3-15.4) Platelet Count 104bil/L (150-400) Neutrophils (%) (Auto) 71.2% (40-74) Lymphocytes (%) (Auto) 12.9% (14-46) Monocytes (%) (Auto) 8.2% (4-12) Eosinophils (%) (Auto) 6.1% (0-5) Basophils (%) (Auto) 1.4% (0-3) Sodium Level 135mEq/L (134-144) Potassium Level 4.0mEq/L (3.5-5.2) Chloride Level 98mEq/L (97-108) Carbon Dioxide Level 23mmol/L (18-29) Blood Urea Nitrogen 13mg/dL (6-24) Creatinine 0.73mg/dL (0.76-1.27) Estimat Glomerular Filtration Rate 117mL/min (>59) Glucose Level 299mg/dL (60-99) Calcium Level 9.3mg/dL (8.5-10.1) Total Bilirubin 1.7mg/dL (0.0-1.2) Aspartate Amino Transf (AST/SGOT) 43U/L (0-50) Alanine Aminotransferase (ALT/SGPT) 33U/L (0-44) Alkaline Phosphatase 184U/L (25-160) Ammonia 162ug/dL (18-53) Total Protein 7.7g/dL (6.4-8.4) Albumin 3.4g/dL (3.4-5.0) Hold Guerra Top Tube Received (Received) Alcohol, Quantitative < 10mg/dL (0-10) Hold Urine Received (Received) CT Head Interpretation IMPRESSION: 1. No acute intracranial abnormality. 2. Volume loss and small vessel ischemic disease. 3. Concordant with preliminary interpretation. Dictated by: Tamika Jason M.D. on 07/08/2016 at 8:30 Study: Head CT no contrast Interpretation / Wet Read by: Interpret - Radiologist Re-Eval/Medical Decision Med Decision/Clinical Course Patient's main complaint is headache due to a head injury. He is not in acute hepatic encephalopathy. He is alert and oriented. He has a steady gait. He was eating a bag full of [employer] breakfast food during the initial interview. He is neurologically intact. He is not intoxicated. Reportedly he has not been compliant with his lactulose though he agrees to continue taking this medication at home when prompted. He did receive 10 mg oxycodone, and 1000 mg of Depakote IV in order to stop his headache. Patient is agreeable to discharge and follow-up. Source of Hx: Old records, Family Time of Eval: 07:59 Re-Evaluation/Progress Note: Rechecked the patient. Discussed lab results with the patient and his spouse. He agrees to take his medication as prescribed. Time of Eval: 09:40 Re-Evaluation/Progress Note: The patient is still complaining of nausea. Time of Eval: 09:59 Re-Evaluation/Progress Note: The patient was able to ambulate normally. His headache is improving. Will discharge home. Counseled Regarding: Diagnosis, Lab results, Need for follow-up, When/why to return to ED Discharge & Departure Primary Impression: Headache Headache type: unspecified Headache chronicity pattern: unspecified pattern Intractability: not intractable Qualified Code: R51 - Headache Disposition: Home Discharge Condition All VS Reviewed: Yes Condition: Stable Additional Instructions: Thank you for entrusting us with your care today. Your labs and head CT results today are reassuring. You need to take your medications as prescribed. Followup with your regular doctor in the next few days for re-evaluation. Please return to the emergency department for any new or concerning symptoms. Referrals: ePter Newman DO (PCP) Scribe Attestation Portions of this note were transcribed by Herlinda Roa. I, Dr. Silva personally performed the history, physical exam and medical decision-making; I reviewed and confirmed the accuracy of the information in the transcribed note. Signed by: Osbaldo Abdullahi, 07/08/2016 and 1005. copies to: Peter Newman DO; Hans Lamar MD, Timothy S DO Jul 08, 2016 06:12 Herlinda Roa Jul 08, 2016 06:20
[2016-07-08 06:55] LABS: BASOPHILS % (AUTO) 1.4 % (0-3); EOSINOPHILS % (AUTO) 6.1 % (0-5); MONOCYTES % (AUTO) 8.2 % (4-12); Mean Corpuscular Hemoglobin 26.9 pg (27.0-35.0); Mean Corpuscular Volume 81.5 fL (81-100); NEUTROPHILS % (AUTO) 71.2 % (40-74); Platelet Count 104 bil/L (150-400)
[2016-07-08 06:57] VITALS: BP 115/71; PULSE 98; RESP 17; O2SAT 96
[2016-07-08 07:08] VITALS: BP 114/44; PULSE 73; RESP 13; O2SAT 98
[2016-07-08] MEDS ORDERED: Lactulose 20 Gm/30 mL 30 mL Syrup TUBE ONE (08:00)
--- NOTE | 2016-07-08 08:37 | DRSVH ---
PROCEDURE: CT BRAIN WITHOUT CONTRAST ([id number]) INDICATIONS: headache, fall, left mastoid pain TECHNIQUE: Noncontrast 4.5 mm thick angled axial sections acquired from the foramen magnum to the vertex, with c oronal reformats. COMPARISON: [facility], CT, CT BRAIN WO CON, 07/04/2016, 9:18. [facility], C T, CT BRAIN WO CON, 07/03/2016, 23:01. [facility], CT, CT BRAIN WO CON, 11/24/2015, 15:04. FINDINGS: Image quality: Excellent. CSF spaces: Basal cisterns are patent. No extra-axial fluid collections. Ex-vacuo dilatation of th e lateral ventricles. The ventricles are symmetric in size and shape. Brain: No intracranial bleeds or masses. There is cerebral volume loss for age, with resultant vent ricular and sulcal prominence. There are periventricular and deep white matter chronic small vessel ischemic changes. There is intracranial internal carotid artery atherosclerosis. Skull and face: Calvarium and visualized facial bones appear intact, without suspicious lesions. Sinuses: Visualized sinuses and mastoids are clear. IMPRESSION: 1. No acute intracranial abnormality. 2. Volume loss and small vessel ischemic disease. 3. Concordant with preliminary interpretation. Dictated by: Tamika Jason M.D. on 07/08/2016 at 8:30 Approved by: Tamika Jason M.D. on 07/08/2016 at 8:31
[2016-07-08] MEDS ORDERED: Valproate Sodium Inj 1,000 MG in Dextrose 5% 100 ML IV ONE (08:45)
[2016-07-08] MEDS ORDERED: Ondansetron 2 mg/mL 2 mL Inj IVPUSH PRN (09:45)
[2016-07-08 11:00] VITALS: BP 151/75; PULSE 74; RESP 16; O2SAT 97
== END 2016-07-08 11:01 | disposition home or self-care (01) ==
LOC: SED 04:34
DX: R51 Headache (principal); E11.9 Type 2 diabetes mellitus without complications; I10 Essential (primary) hypertension; F17.200 Nicotine dependence, unspecified, uncomplicated; Z87.19 Personal history of other diseases of the digestive system; Z79.84 Long term (current) use of oral hypoglycemic drugs; Z88.8 Allergy status to other drugs, medicaments and biological substances
CPT/HCPCS: 36415; 70450; 80053; 82140; 85025; 96374; 99283; G0480

== ENCOUNTER 2016-09-23 14:53 | Inpatient (IN) | payer MEDICAID, MEDICARE ==
[2016-09-23] VITALS (7 sets, daily range): BP systolic 123–155; BP diastolic 68–97; PULSE 67–116; RESP 16–20; O2SAT 97–100
[~2016-09-23] VITALS: Ht 198.1 cm; Wt 122.2 kg
--- NOTE | 2016-09-23 15:23 | ED.REPORT ---
HPI-GI Bleed Date of Service Sep 23, 2016 ED Provider: Tyshawn Kebede MD This is a 61 year old male with a history of PTSD, alcoholic cirrhosis, DM, HTN , hydrocephalus, esophageal varices managed by Dr. Ellis presenting to the emergency department due to hematemesis that began three hours ago. Patient had one episode of emesis that appeared to be gross blood followed by nausea and vomiting of bile. Last endoscopy 05/2015. PCP Dr. Newman. Pt sent from Dr. Lamar, neurologist's office today. Denies hematochezia, constipation, diarrhea , dysuria, headache, fever, or chills at this time. Last EtOH 06/2016. Nursing Notes Stated Complaint: THROWING UP BLOOD Chief Complaint: Male Abdominal Pain Nursing Notes Reviewed: Yes ([employer] not reconciled) Allergies: Coded Allergies: lisinopril (Verified Adverse Reaction, Intermediate, cough, 01/23/16) propranolol (Verified Adverse Reaction, Intermediate, PALPITATIONS, HEART RACES, 01/23/16) Scheduled Aripiprazole (Aripiprazole) 5 Mg Tablet 5 MG PO DAILY Canagliflozin (Invokana) 100 Mg Tablet 100 MG PO QAM Fluticasone Propionate (Fluticasone Propionate Nasal) 16 Gm [place].susp 1 SPRAY NS BID Furosemide (Furosemide) 40 Mg Tablet 40 MG PO DAILY Gabapentin (Gabapentin) 100 Mg Capsule 200 MG PO TID Lactulose (Lactulose) 10 Gm/15 Ml Solution 20 ML PO BID Levocarnitine (Levocarnitine) 330 Mg Tablet 330 MG PO DAILY Liraglutide (Victoza 2-Magen) 0.6 Mg/0.1 Ml Pen.injctr 1.2 MG SUBQ QAM Metformin (Glucophage) 1,000 Mg Tablet 1,000 MG PO BIDWM Mirtazapine (Mirtazapine) 15 Mg Tablet 15 MG PO HS Pantoprazole DR (Protonix) 40 Mg Tablet 40 MG PO DAILY Quetiapine Fumarate (Seroquel) 50 Mg Tablet 50 MG PO HS Rifaximin (Xifaxan) 550 Mg Tablet 550 MG PO BID Spironolactone (Spironolactone) 100 Mg Tablet 100 MG PO DAILY Triamcinolone Acet (Triamcinolone Acetonide Cream) 4 Applic/Gm Cr 1 APPLIC TOP BID Scheduled PRN Loratadine (Claritin) 10 Mg Capsule 10 MG PO DAILY PRN PRN allergies General Time Seen by Provider: 15:24 Chief Complaint Chief Complaint: Vomiting blood Hx Obtained From: Patient Arrived By: Walk-in Onset Occurred: 1 - 4 hours ago Symptom Duration: Since onset Severity: Current: Mild Pertinent Negative: Pt denies other symptoms Recent Healthcare: No recent hospitalization, Recent doctor visit Similar Sx Previous: Yes Past Medical History Past Medical History Notes: Admit November 13-2015 for hepatic encephalopathy, PTSD, and benzodiazepine dependency Past Medical History Cirrhosis of liver (ETOH) chronic thrombocytopenia History of high hepatic encephalopathy Hypertension diabetes GERD PTSD History of spinal stenosis History of heart murmur Reports: Diabetes mellitus, GERD, Hypertension Past Surgical History None Family History Father had multiple CA's with his first being in the 30's Smoking History Current Every Day Smoker Social History History of alcohol abuse, last drink 3 months ago Alcohol Use: In recovery Other Social History: Good social support, , Local resident 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 Physical Exam Initial Vital Signs Vital Signs (First) Date Time Temp Pulse Resp B/P Pulse Ox O2 Delivery O2 Flow Rate FiO2 09/23/16 14:57 36.2 116 18 143/97 98 Room Air Initial VS: Reviewed, Vital signs abnormal Head / Eyes: Atraumatic, Normocephalic, PERRL ENT: Mucous membranes moist, Conjunctiva normal, No scleral icterus Neck: Supple, Non-tender, Full range of motion Extremities: Vascular intact, Neuro intact, No swelling, No tenderness Skin: Warm, Dry, No cyanosis Neurologic: Alert, Oriented, Nonfocal Psychiatric: Mood/affect normal, Behavior normal, Normal thought content General/Constitutional: Awake, Alert Anxious, holding emesis basin, mentating normally, no signs of encephalopathy Respiratory / Chest: Breath sounds NL, Breath sounds = bilat, No respiratory distress, No rales, No rhonchi, No wheezing Cardiovascular: Regular rhythm, Heart sounds NL, No murmurs, Cap refill not delayed, Peripheral circulation NL Heart Rate / Rhythm: Positive: Tachycardia Abdomen: Non-tender, No guarding, No rebound, BS normoactive Recal exam deferred Interpretation & Diagnostics Lab Results Interpretation Result Diagram: 09/23/16 1649 09/23/16 1548 Test 09/23/16 15:48 09/23/16 16:49 White Blood Count 9.1th/mm3 (3.8-10.1) Red Blood Count 5.48mil/mm3 (4.40-5.80) Mean Corpuscular Volume 82.7fL (81-100) Mean Corpuscular Hemoglobin 28.3pg (27.0-35.0) Mean Corpuscular Hemoglobin Concent 34.2% (32.0-37.0) Red Cell Distribution Width 18.7% (12.3-15.4) Platelet Count 106bil/L (150-400) Neutrophils (%) (Auto) 89.6% (40-74) Lymphocytes (%) (Auto) 5.0% (14-46) Monocytes (%) (Auto) 4.3% (4-12) Eosinophils (%) (Auto) 0.6% (0-5) Basophils (%) (Auto) 0.3% (0-3) Prothrombin Time 12.5sec (8.1-12.5) Prothromb Time International Ratio 1.16ratio Sodium Level 135mEq/L (134-144) Potassium Level 4.8mEq/L (3.5-5.2) Chloride Level 98mEq/L (97-108) Carbon Dioxide Level 19mmol/L (18-29) Blood Urea Nitrogen 17mg/dL (6-24) Creatinine 0.90mg/dL (0.76-1.27) Estimat Glomerular Filtration Rate 92mL/min (>59) Glucose Level 136mg/dL (60-99) Calcium Level 9.9mg/dL (8.5-10.1) Magnesium Level 1.7mg/dL (1.6-2.6) Total Bilirubin 2.5mg/dL (0.0-1.2) Aspartate Amino Transf (AST/SGOT) 59U/L (0-50) Alanine Aminotransferase (ALT/SGPT) 40U/L (0-44) Alkaline Phosphatase 141U/L (25-160) Ammonia 106ug/dL (18-53) Total Protein 8.5g/dL (6.4-8.4) Albumin 3.9g/dL (3.4-5.0) Hold Guerra Top Tube Received (Received) Hemoglobin 14.7g/dL (13.8-17.2) Hematocrit 43.6% (41.0-50.0) Lab Results Interpretation: CBC normal, starting hematocrit normal, repeat hematocrit normal CMP normal electrolytes mild hepatic dysfunction Ammonia elevated but improved Re-Eval/Medical Decision Med Decision/Clinical Course This is a 61-year-old male with liver disease and known esophageal varices who reports she is followed by Dr. Sanchez and actually scheduled to undergo banding of varices in the next several weeks who presents complaining of hematemesis. The patient reports that over the past week he has had some intermittent nausea-but no bleeding. And then today while in the shower had an episode of profound hematemesis. He has had some subsequent retching but no further episodes of hematemesis and came to the emergency department. HE denies any prior history of such similar bleeding. He has no additional complaints except for component of anxiety as he has aw history of PTSD and requests an anxiolytic while being evaluated. he does appear anxious, but not toxic or in distress. He had no episodes of hematemesis. The patient is tachycardic, but was never hypotensive. The patient had IV placed, labs drawn an initial hematocrit, and the subsequent hematocrit were normal. He has been typed and crossed, but is not at this point require transfusion. He has been started on octreotide and Protonix infusions. G has been consult, and endoscopies planned for tomorrow. The patient's been seen by the hospitalist service is being admitted for continued management. Source of Hx: Old records Consultation #1: Referral / Consult Name: Blake Piper MD Consulted With: Hospitalist Call Returned at: 16:56 Mixing Operator: Accepts admit Consultation #2: Referral / Consult Name: Tadeo Carbajal MD Call Returned at: 16:30 Mixing Operator: Will see patient, Agrees with eval, Agrees with plan Note: GI Differential Diagnosis: Positive: Esophageal varices, GI Bleed, Negative: Anal fissures, Foreign body intestine, Perirectal abscess, Pilonidal abscess Counseled Regarding: Diagnosis, Lab results, Need for follow-up, Need for admission Discharge & Departure Impression: Primary Impression: GI bleed GI bleed type/associated pathology: unspecified gastrointestinal hemorrhage type Qualified Code: K92.2 - Gastrointestinal hemorrhage, unspecified Additional Impressions: Esophageal varices Esophageal varices type: idiopathic Esophageal varices bleeding: with bleeding Qualified Code: I85.01 - Esophageal varices with bleeding Chronic liver disease Increased ammonia level Disposition: ADMITTED TO HOSPITAL Discharge Condition All VS Reviewed: Yes Condition: Stable Referrals: Peter Newman DO (PCP) Scribe Attestation Portions of this note were transcribed by Sachin Bergeron. I, Dr. Kebede personally performed the history, physical exam and medical decision-making; I reviewed and confirmed the accuracy of the information in the transcribed note. Signed by Osbaldo Corbett, 09/23/2016 at 18:00. Tyshawn Kebede MD Sep 23, 2016 15:23 SACHIN BERGERON Sep 23, 2016 15:30
[2016-09-23] MEDS ORDERED: Ondansetron 2 mg/mL 2 mL Inj IVPUSH ONE ×2 (15:45→17:35)
[2016-09-23] MEDS ORDERED: Octreotide Inj 500 MCG in 0.9% Sodium Chloride 100 ML IV ONE (15:50)
[2016-09-23 16:05] LABS: BASOPHILS % (AUTO) 0.3 % (0-3); NEUTROPHILS % (AUTO) 89.6 % (40-74)
[2016-09-23 16:09] LABS: EOSINOPHILS % (AUTO) 0.6 % (0-5); MONOCYTES % (AUTO) 4.3 % (4-12); Mean Corpuscular Hemoglobin 28.3 pg (27.0-35.0); Mean Corpuscular Volume 82.7 fL (81-100); Platelet Count 106 bil/L (150-400)
[2016-09-23 16:18] LABS: INR 1.16 ratio
[2016-09-23] MEDS ORDERED: LACT10SO PO (16:25)
[2016-09-23] MEDS ORDERED: GABA-500 PO (16:25)
[2016-09-23 16:28] LABS: Magnesium 1.7 mg/dL (1.6-2.6)
[2016-09-23] MEDS ORDERED: RIFA550T3 PO (16:29)
[2016-09-23] MEDS ORDERED: CANA100T PO (16:29)
[2016-09-23] MEDS ORDERED: METF1000 PO (16:29)
[2016-09-23] MEDS ORDERED: MIRT15TA6 PO (16:29)
[2016-09-23] MEDS ORDERED: ARIP5TAB20 PO (16:29)
[2016-09-23] MEDS ORDERED: LIRA0.6P SUBQ (16:29)
[2016-09-23] MEDS ORDERED: Pantoprazole Inj 80 MG, Pharmacy To Mix 1 EA in 0.9% Sodium Chloride 80 ML IV ONE ×2 (16:55)
[2016-09-23] MEDS ORDERED: Pantoprazole 4 mg/mL 10 mL Inj IVPUSH ONE (16:55)
[2016-09-23] MEDS ORDERED: LIDO11JE MM (17:13)
--- NOTE | 2016-09-23 17:14 | PCM.CHPMED ---
Subjective Date of Service: Sep 23, 2016 Primary Physician: Admitting Physician: Primary Care Physician: Peter Newman DO Attending Physician: Admit Status: From the Emergency Department Chief Complaint: Chief Complaint: Reason for consultation: hematemesis, alcoholic cirrhosis, and esophageal varices History of Present Illness: GASTROENTEROLOGY CONSULTATION: Mr. Ghassan Moore is a pleasant 61 yo male with history of PTSD, alcoholic liver cirrhosis Child-Pitt class B, esophageal varices, diabetes type II, hypertension, and normal pressure hydrocephalus who presents to the ED with chief complaint of hematemesis onset at 1230pm today. Patient reports to have one large episode of dark emesis followed by bile vomiting, "all over the bathtub." He subsequently had 2 more hematemesis prior to his appointment with Dr. Lamar in the office. He was sent to the ED by Dr. Lamar. Patient reports that he has had intermittent nausea that spontaneously resolves in the last 6 months. However, the nausea has been getting worse, and he has been feeling progressively weak and fatigue. He cannot longer take a walk without feeling short of breath. He is not taking any medication for nausea at home. Patient also reports epigastric abdominal pain that is "twisting." He admits to decreased appetite, 20lbs weight loss in the last month, SOB, somnolence, and increasing anxiety/agitation. He admits to be under significant amount of stress lately and is very tempted to drink alcohol again. His last drink was before to the last hospitalization for hepatic encephalopathy in June 2016. Patient denies hematochezia, melena, constipation, diarrhea, dysuria, headache, change in mental status, fever, or chills at this time. He denies any episode of hematemesis in the past. Patient had an EGD by Dr. Ellis on 04/09/2015 that showed Grade 2-3 distal esophageal varices and portal hypertensive gastropathy, possible distal gastric varices. He has been following Dr. Ellis as outpatient and is scheduled to have a double endoscopy on 10/27/[address] Ellis. There is an ongoing plan for serial banding over the next year. He has history of colonic polyps that requires colonoscopy every 3 years. The last colonoscopy was 3 years ago. He reports that he is taking lactulose and reports that he is not tolerating this well. His last ammonia level was 178 on 09/10/16. He reports that Dr. Ellis suggested that he decreases the lactulose and add Miralax. He is on Protonix 40mg PO daily at home. In the ED, patient's initial Hgb 15.5, Hct 45.3. Platelet 106. INR 1.16. Repeat H/H pending. Total bilirubin 2.5. AST 59, ALT 40. Ammonia 106. GI service was consulted to help with the hematemesis, esophageal varices, and alcohol cirrhosis. Review of Systems: Constitutional: Reports: Weakness, Denies: Chills, Fever Eyes: Denies: Blurred Vision, Double Vision ENT: Denies: Ear Pain Cardiovascular: Reports: Palpitations, SOB on Exertion, Denies: Chest Pain, Edema Respiratory: Reports: SOB with Exertion, Shortness of Breath, Denies: Cough, Cough with bloody sputum, Sputum, Wheezing Gastrointestinal: Reports: Abdominal Pain, Change in Appetite, Nausea, Vomiting (hematemesis), Denies: Black tarry stools, Blood in stool (red), Constipation, Diarrhea Genitourinary: Reports: Hematuria (a few times a month ago. Has resolved. ), No burning or pain with urination, Denies: Change in Frequency, Decrease Urinary Stream Skin: Denies: Blisters, Bruising, Dry or Flakiness, Itching Neurological: Reports: Difficulty Walking, Somnolence, Denies: Change in Speech, Confusion, Dizziness, Drooping Mouth, Localized Weakness, Numbness Psychologic: Reports: Agitation, Anxiety, PTSD-Post Traumatic Stress Disorder, Denies: Suicidal Thoughts PMH Past Medical History Cirrhosis of liver (ETOH) Chronic thrombocytopenia History of high hepatic encephalopathy Hypertension Diabetes GERD PTSD History of spinal stenosis History of heart murmur Reports: Diabetes mellitus, GERD, Hypertension Admitted on 06/2816-07/06/16 for alcohol withdrawal, concussion, and hepatic encephalopathy. Surgical History EGD by Dr. Ellis on 04/09/2015 showed Grade 2-3 distal esophageal varices and portal hypertensive gastropathy, possible distal gastric varices. No other surgery. Home Medications Per next gen 09/23/2016 aripiprazole 5 mg tablet take 1 tablet by oral route every day BITTER MELON EXTRACT 02/24/2016 Blood Glucose Monitoring kit Test blood sugar in the morning before food and before each meal 09/23/2016 Carnitor 330 mg tablet take 1 tablet by oral route 1 times every day with meals 05/05/2016 Cialis 20 mg tablet take 1 tablet by oral route as directed prior to sexual activity 04/03/2016 Claritin 10 mg tablet take 1 tablet by oral route every day 04/03/2016 Flonase 50 mcg/actuation nasal spray,suspension USE ONE SPRAY IN EACH NOSTRIL DAILY NEEDED 09/08/2016 fluticasone 50 mcg/actuation nasal spray,suspension inhale 1 spray by intranasal route every day in each nostril 08/14/2016 furosemide 40 mg tablet take 1 tablet by oral route every day 09/18/2016 gabapentin 100 mg capsule take 2 Capsule by oral route 3 times every day as tolerated 08/24/2016 Invokana 100 mg tablet take 1 tablet by oral route every day before the first meal of the day 07/13/2016 lactulose 20 gram/30 mL oral solution take 40 milliliter by oral route 3 times every day hold for loose stools 10/01/2016 08/04/2016 metformin 1,000 mg tablet take 1 tablet by oral route 2 times every day with morning and evening meals 11/01/2016 04/29/2016 Miralax 17 gram oral powder packet take 1 packet by oral route every day mixed with 8 oz. water, juice, soda, coffee or tea mirtazapine 15 mg tablet take 2 tablet by oral route every day before bedtime 08/24/2016 Protonix 40 mg tablet,delayed release TAKE ONE TABLET BY MOUTH ONE TIME DAILY 09/23/2016 quetiapine 50 mg tablet take 1 tablet by oral route every day 08/14/2016 spironolactone 100 mg tablet take 1 tablet by oral route every day 09/10/2016 Suprep Bowel Prep Kit 17.5 gram-3.13 gram-1.6 gram oral solution Use as directed 02/25/2016 Test Strips STRIP Use to test blood sugar once daily. 09/02/2016 triamcinolone acetonide 0.5 % topical cream APPLY A THIN LAYER TO THE AFFECTED AREA(S) TWICE DAILY. 08/17/2016 Victoza 3-Magen 0.6 mg/0.1 mL (18 mg/3 mL) subcutaneous pen injector inject (1.2MG) by subcutaneous route every day 01/30/2016 Xifaxan 550 mg tablet take 1 tablet by oral route 2 times every day Allergies: Coded Allergies: lisinopril (Verified Adverse Reaction, Intermediate, cough, 01/23/16) propranolol (Verified Adverse Reaction, Intermediate, PALPITATIONS, HEART RACES, 01/23/16) Family History Family History Strong family of alcoholism in his father's side. Father had multiple MIs. Maternal grandfather from a "ruptured portal vein" at 43 yo. He was an alcoholic. Social History Hx Alcohol Use: No (Has been sober since 06/2016. History of alcohol abuse in the past.)Hx Substance Use: Yes (marijuana)Hx Tobacco Use: Yes (cigars and pipe) Smoking Status: Current Every Day Smoker Living Arrangement: with Family Exam Vital Signs Vital Sign - Last Date Time Temp Pulse Resp B/P Pulse Ox O2 Delivery O2 Flow Rate FiO2 09/23/16 16:46 36.2 87 16 155/69 99 Room Air Additional Information: General: Alert, oriented X3, cooperative, pleasant, not in acute distress. Head: NCAT, EOMI. Anicteric sclerae. Mucosa membrane moist. Neck: Neck supple with full range of motion. Chest & Lungs: Mild rales at the bases. Otherwise clear to auscultation bilaterally with no wheezes or rhonchi. Normal effort. Cardiovascular: Regular Rate/Rhythm, Normal S1, Normal S2, No Murmurs/Rubs/ Gallops. Abdomen: Soft, Non-distended, Moderately tender to palpation in the epigastric area. No guarding or rebound tenderness. Normoactive bowel tones. No hepatomegaly appreciated. No ascites/fluid wave. Extremities: No cyanosis/clubbing/edema bilaterally. Neurological: normal speech, sensation Intact. Skin: no jaundice. Lab and Diagnostics Result Diagram: 09/23/16 1548 09/23/16 1548 Assessment & Plan Assessment This is a 61 yo male with history of PTSD, alcoholic liver cirrhosis Child-Pitt class B, esophageal varices, diabetes type II, hypertension, and normal pressure hydrocephalus who presents to the ED with chief complaint of hematemesis and epigastric abdominal pain onset at 1230pm today. He has a MELD score of 13 and Maddrey's discriminant function score of 4.8. Thus, steroids are not indicated. Last alcoholic use was 3 months ago. He is followed by Dr. Ellis as outpatient with plan for EGD with serial banding over the next year due to intolerance to beta sandhya. AFP 3.7 on 09/10/16. Last EGD on 04/2015 showed Grade 2-3 distal esophageal varices and portal hypertensive gastropathy, possible distal gastric varices. Differential for the upper GI bleed could be esophageal variceal bleed, Marie-Dahl tear, portal hypertensive gastropathy, gastritis, or peptic ulcer disease. Impressions: 1. Acute hematemesis likely secondary to upper GI bleed. 2. History of Grade 2-3 esophageal varices. 3. History of portal hypertensive gastropathy. 4. Alcoholic cirrhosis with chronic hepatic encephalopathy. 5. History of polyps of colon. Recommendations: - NPO excepts for medications. - Continue Protonix and Octreotide ggt. - Spurger of an upper endoscopy discussed with the patient and his , and they wish to proceed. Will plan for an EGD sometime tomorrow. - Monitor serial H/H. - Continue outpatient dose of Lactulose and Miralax. - Will defer the colonoscopy to Dr. Ellis as outpatient. Patient should keep his appointment on 10/27/16. - Alcohol cessation. Thank you for the consultation and please contact us for any question or concern. Problems: Pain Evaluation: Adequate Pain Control GI Prophylaxis: Proton Pump Inhibitor Resuscitation Status: CPR: Attempt Resuscitation Chung Rutledge DO Sep 23, 2016 17:14
[2016-09-23] MEDS ORDERED: HYDROmorphone 1 mg/mL Inj IVPUSH ONE (17:35)
[2016-09-23] MEDS ORDERED: Alum-Mag Hydrox-Simeth 30 mL Suspension PO PRN ×2 (18:00→18:25)
[2016-09-23] MEDS ORDERED: Ondansetron 2 mg/mL 2 mL Inj IVPUSH PRN ×2 (18:00→18:05)
[2016-09-23] MEDS: Pantoprazole Inj 80 MG in 0.9% Sodium Chloride 80 ML IV SCH (18:00)
[2016-09-23] MEDS ORDERED: Ketamine 100 mg/mL 5 mL Inj IV PRN (18:05)
[2016-09-23] MEDS ORDERED: HYDROmorphone 0.5 mg/0.5 mL iSecure Syringe IVPUSH PRN (18:05)
[2016-09-23] MEDS ORDERED: Lidocaine 2% 5 mL Topical Jelly MUC_MEMBRM ONE (18:15)
[2016-09-23] MEDS ORDERED: Polyethylene Glycol (PEG) 17 Gm Powder PO PRN (18:25)
[2016-09-23] MEDS ORDERED: Octreotide Inj 500 MCG in 0.9% Sodium Chloride 99 ML IV SCH (18:25)
[2016-09-23] MEDS ORDERED: Pantoprazole Inj 80 MG in 0.9% Sodium Chloride 80 ML IV SCH (18:25)
--- NOTE | 2016-09-23 18:27 | PCM.HPMED ---
Subjective Date of Service Sep 23, 2016 Primary Provider: Admitting Physician: Blake Piper MD Primary Care Physician: Peter Newman DO Attending Physician: Blake Piper MD Admit Status: From the Emergency Department Chief Complaint: Hematemesis, abdominal pain History of Present Illness: This is a 61 year old male with a history of posttraumatic stress disorder, alcoholic liver cirrhosis Child-Pitt class B, diabetes mellitus, hypertension, normal pressure hydrocephalus, esophageal varices managed by Dr. lElis who presented to [facility] Emergency Department due to hematemesis that began earlier this morning. Patient had one episode of emesis that appeared to be gross blood followed by nausea and vomiting of bile. Last endoscopy 05/2015. Primary care provider Dr. Newman. Patient sent from Dr. Lamar, neurologist's office today. Patient denies hematochezia, constipation, diarrhea, dysuria, headache, fever, or chills at this time. Patient reports having decreased appetite severe abdominal pain. According to the patient his last alcohol intake was about 3 months ago. Patient had an esophagogastroduodenoscopy by Dr. Ellis on 04/09/2015 that showed grade 2-3 distal esophageal varices and portal hypertensive gastropathy, possible distal gastric varices. He has been following Dr. Ellis as outpatient and was scheduled to have a double endoscopy on 10/27/[address] Ellis. There is an ongoing plan for serial banding over the next year. He has history of colonic polyps that requires colonoscopy every 3 years. The last colonoscopy was 3 years ago. He reports that he is taking lactulose and reports that he is not tolerating this well. His last ammonia level was 178 on 09/10/16. He reports that Dr. Ellis suggested that he decreases the lactulose and add Miralax. In the ED, patient's initial Hgb 15.5, Hct 45.3. Platelet 106. INR 1.16. Repeat H/H pending. Total bilirubin 2.5. AST 59, ALT 40. Ammonia 106. Gastroenterology service was consulted to help with the hematemesis, esophageal varices, and alcohol cirrhosis. Review of Systems: A comprehensive review of systems has been conducted with the patient and found to be negative except what is mentioned in the history of present illness. Allergies Coded Allergies: lisinopril (Verified Adverse Reaction, Intermediate, cough, 8/18/16) propranolol (Verified Adverse Reaction, Intermediate, PALPITATIONS, HEART RACES, 01/23/16) Home Medications Scheduled Aripiprazole (Aripiprazole) 5 Mg Tablet 5 MG PO DAILY Canagliflozin (Invokana) 100 Mg Tablet 100 MG PO QAM Fluticasone Propionate (Fluticasone Propionate Nasal) 16 Gm [place].susp 1 SPRAY NS BID Furosemide (Furosemide) 40 Mg Tablet 40 MG PO DAILY Gabapentin (Gabapentin) 100 Mg Capsule 200 MG PO TID Lactulose (Lactulose) 10 Gm/15 Ml Solution 20 ML PO BID Levocarnitine (Levocarnitine) 330 Mg Tablet 330 MG PO DAILY Liraglutide (Victoza 2-Magen) 0.6 Mg/0.1 Ml Pen.injctr 1.2 MG SUBQ QAM Metformin (Glucophage) 1,000 Mg Tablet 1,000 MG PO BIDWM Mirtazapine (Mirtazapine) 15 Mg Tablet 15 MG PO HS Pantoprazole DR (Protonix) 40 Mg Tablet 40 MG PO DAILY Quetiapine Fumarate (Seroquel) 50 Mg Tablet 50 MG PO HS Rifaximin (Xifaxan) 550 Mg Tablet 550 MG PO BID Spironolactone (Spironolactone) 100 Mg Tablet 100 MG PO DAILY Triamcinolone Acet (Triamcinolone Acetonide Cream) 4 Applic/Gm Cr 1 APPLIC TOP BID Scheduled PRN Loratadine (Claritin) 10 Mg Capsule 10 MG PO DAILY PRN PRN allergies PMH Cirrhosis of liver (ETOH) Chronic thrombocytopenia History of high hepatic encephalopathy Hypertension Diabetes GERD PTSD History of spinal stenosis History of heart murmur Surgical History None Family History Father had multiple IL's with his first being in the 30's Social History Hx Alcohol Use: No (Has been sober since 06/2016. History of alcohol abuse in the past.) Hx Substance Use: Yes (marijuana) Hx Tobacco Use: Yes (cigars and pipe) Smoking Status: Current Every Day Smoker Living Arrangement: with Family Exam Vital Signs Vital Sign - Last Date Time Temp Pulse Resp B/P Pulse Ox O2 Delivery O2 Flow Rate FiO2 09/23/16 18:01 67 18 154/88 98 Room Air 09/23/16 16:46 36.2 Exam General: Alert, oriented X3, cooperative, pleasant, not in acute distress. Head: Normocephalic atraumatic, extraocular muscles intact, anicteric sclerae, mucosa membrane moist. Neck: Neck supple with full range of motion. Chest & Lungs: Mild rales at the bases. Otherwise clear to auscultation bilaterally with no wheezes or rhonchi. Cardiovascular: Regular Rate/Rhythm, No Murmurs/Rubs/Gallops. Abdomen: Soft, Non-distended, Moderately tender to palpation in the epigastric area. No guarding or rebound tenderness. Normoactive bowel tones. No hepatomegaly appreciated. No ascites/fluid wave. Extremities: No cyanosis/clubbing/edema bilaterally. Neurological: normal speech, sensation Intact. Skin: no jaundice. Lab and Diagnostics Result Diagram: 09/23/16 1649 09/23/16 1545 Assessment & Plan Ghassan Moore is a 61-year-old male with liver disease and known esophageal varices who reports she is followed by Dr. Sanchez and actually scheduled to undergo banding of varices in the next several weeks who presents complaining of hematemesis. Patient is admitted for further treatment and management of gastrointestinal bleeding. 1. Acute hematemesis, present on admission. Active - Likely secondary to upper bleed due to patient's history of esophageal varices, peptic ulcer disease, gastritis, portal hypertensive gastropathy, Marie-Dahl tear, etc - Continue Protonix and Octreotide ggt. - Upper endoscopy tomorrow morning by Dr. Freeman - Nothing by mouth - Continue to monitor hemoglobin and hematocrit 2. Alcoholic cirrhosis with chronic hepatic encephalopathy, present on admission. Stable - Elevated ammonia - Continue outpatient dose of lactulose, rifaximin and miralax 3. Post traumatic stress disorder, present on admission. Presumed stable - Continue abilify 5 mg daily - Continue mirtazapine 15 mg daily - Ativan 1 mg every 4 hours orally as needed for anxiety - Dilaudid 1 mg intravenously every 2 hours as needed for pain 4. Hypertension, chronic. Presumed stable - Continue furosemide 40 mg daily - Continue spironolactone 100 mg daily (replace by pharmacy) - Continue to monitor 5. Diabetes mellitus, chronic. Presumed stable -Metformin 100 mg twice a day at home; will hold for now -Nutritional and low dose correctional insulin -Continue to monitor blood glucose 6. Colon polyps, chronic. Presumed stable -Colonoscopy by Dr. Ellis as outpatient on 10/27/16 Patient status: Patient was admitted under inpatient status with expected length of stay greater than to midnights due to severity of presenting symptoms , risk of adverse event, and complexity of treatment plan. . Pain Evaluation: Adequate Pain Control GI Prophylaxis: Proton Pump Inhibitor Resuscitation Status: CPR: Attempt Resuscitation Attending Statement The patient was seen and examined together with Dr. Wilder on 09/23/2016 and I agree with the history, exam and plan as outlined in the note above. . copies to: Peter Newman Oksana S DO Sep 23, 2016 18:27 Blake Piper MD Sep 24, 2016 07:50
[2016-09-23] MEDS ORDERED: Glucose 40% Oral Gel 15 Gm Tube PO PRN (19:05)
--- NOTE | 2016-09-23 19:24 | NUR ---
Nausea/Vomiting No reports of chest pain/pressure/discomfort. Tele SR/tach 90s-110s. No reports of SOB/dizziness. SPO2 on RA 97%. Reports continuous nausea, unable to give additional zofran -- 16mg in one hour reached, per pharmacy pt has reached max dose. Vomiting yellow/green pure liquid -- MD consulted about adding additional antiemetic medication. NPO, protonix and octreotide gtt infusing.
[2016-09-23] MEDS ORDERED: MetoCLOpramide 5 mg/mL 2 mL Inj IVPUSH PRN (19:25)
[2016-09-23] MEDS: 0.9% Sodium Chloride 1,000 ML IV SCH (19:43)
[2016-09-23] MEDS: Fluticasone 0.05% 15 Spray/2 Gm 16 Gm Nasal Spray NASAL SCH (20:26)
[2016-09-23] MEDS: Lactulose 20 Gm/30 mL 30 mL Syrup PO SCH (20:26)
[2016-09-23] MEDS: HYDROmorphone 0.5 mg/0.5 mL iSecure Syringe IVPUSH PRN ×2 (20:30→22:26)
[2016-09-23] MEDS: Insulin LISPRO 300 Unit/3 mL Inj SUBQ SCH (20:35)
[2016-09-23 22:00] LABS: APPEARANCE,URINE CLEAR (CLEAR,HAZY); COLOR,URINE YELLOW (YELLOW)
[2016-09-23 22:01] LABS: OCCULT BLOOD,URINE NEGATIVE (NEGATIVE); UROBILINOGEN,URINE NORMAL (NORMAL)
[2016-09-24] VITALS (12 sets, daily range): BP systolic 89–144; BP diastolic 53–89; PULSE 62–91; RESP 16–20; O2SAT 93–99
[2016-09-24] MEDS: Ondansetron 2 mg/mL 2 mL Inj IVPUSH PRN ×3 (00:18→20:37)
[2016-09-24] MEDS: Pantoprazole Inj 80 MG in 0.9% Sodium Chloride 80 ML IV SCH ×2 (01:25→15:19)
[2016-09-24] MEDS: Octreotide Inj 500 MCG in 0.9% Sodium Chloride 99 ML IV SCH ×2 (01:26→15:19)
[2016-09-24 03:10] LABS: EOSINOPHILS % (AUTO) 2.9 % (0-5); MONOCYTES % (AUTO) 9.4 % (4-12); Mean Corpuscular Hemoglobin 27.9 pg (27.0-35.0); Mean Corpuscular Volume 82.6 fL (81-100); NEUTROPHILS % (AUTO) 72.6 % (40-74); Platelet Count 80 bil/L (150-400)
--- NOTE | 2016-09-24 04:51 | NUR ---
GI/ anxiety No vomiting/ signs if bleeding overnight. VSS. Octritide and protonix gtt infusing as ordered. Pt has been NPO except for meds and a few ice chips. PRN Zofran given for nausea with good results. pt c/o 12/14 abdominal pain. PRN Dilaudid given x2 with relief- pt sleeping intermittently. PRN IV Ativan given for anxiety/ PTSD pt a/ox3 and cooperative with care.
[2016-09-24] MEDS: 0.9% Sodium Chloride 1,000 ML IV SCH ×2 (05:05→15:19)
[2016-09-24] MEDS: Insulin LISPRO 300 Unit/3 mL Inj SUBQ SCH ×4 (08:00→20:45)
[2016-09-24] MEDS: Lactulose 20 Gm/30 mL 30 mL Syrup PO SCH ×2 (08:04→20:36)
[2016-09-24] MEDS: HYDROmorphone 0.5 mg/0.5 mL iSecure Syringe IVPUSH PRN ×5 (08:05→23:19)
[2016-09-24] MEDS: Fluticasone 0.05% 15 Spray/2 Gm 16 Gm Nasal Spray NASAL SCH ×2 (08:06→20:37)
--- NOTE | 2016-09-24 10:52 | NUR ---
Case Management: Provided JEANNINE form with explanation at 1010. Pt signed - original placed in chart, copy to patient. Jose Luis Raman RN
--- NOTE | 2016-09-24 11:24 | NUR ---
Social Work: Initial Assessment D: Per EMR review, pt is a 61 year old male admitted for GI Bleed r/o Varices. Pt is Medicare with [employer]SH[employer] supplement; pt has no LTC insurance or VA benefits. PCP is Dr. Newman. NOK is Chiquita Moore, . Advanced directives completed- copy not on chart, AUDIOVISUAL PRODUCTION SPECIALIST requested. Readmit score not entered at this time. AUDIOVISUAL PRODUCTION SPECIALIST met with pt at bedside. Sw role explained and contact info provided. See initial assessment. Pt lives at home with his spouse in [place]. pt is I with ADLs at baseline. pt uses a cane at base and has never had HH or Skilled rehab. Pt lives in a two story home with a flight of stairs. Pt denies any concerns about home. Pt has a history of ETOH use but has not been drinking for several months. Pt declined CD resources from AUDIOVISUAL PRODUCTION SPECIALIST and states that he received these at his last visit. Pt declined to participate in fully CD assessment with AUDIOVISUAL PRODUCTION SPECIALIST and states that his drinking has not been problematic for several months. Pt states that his will transport him home when ready. A: pt who is I at baseline. P: Anticipate pt to discharge home when medically stable; AUDIOVISUAL PRODUCTION SPECIALIST to continue to follow. ZAID Remy Addendum: 09/24/16 at 1132 by CALVIN FARRAR Amended: Links added.
[2016-09-24] MEDS ORDERED: Lactated Ringer's 1,000 ML IV ONE (13:22)
[2016-09-24] MEDS ORDERED: Lactated Ringer's 1,000 ML IV SCH (13:22)
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
--- NOTE | 2016-09-24 14:07 | PCM.PNMED ---
Subjective Date of Service Sep 24, 2016 Subjective Patient slept well through the night. He had some nausea relieved with zofran. No vomiting /bleeding overnight. Dilaudid x 2 and ativan x 3 administered per request. Patient denies any new problems. Exam Vital Signs Vital Sign - Last Date Time Temp Pulse Resp B/P Pulse Ox O2 Delivery O2 Flow Rate FiO2 09/24/16 13:32 36.7 86 16 126/78 96 Room Air Intake and Output 09/23/16 09/23/16 09/24/16 Cumulative From/Thru 15:00 23:00 07:00 09/23/16 14:57 - 09/24/16 05:08 Intake Total 1520 ml 1520 ml Output Total 650 ml 650 ml Balance 870 ml 870 ml Intake Oral 400 ml 400 ml IV Total 1120 ml 1120 ml Output Urine Total 650 ml 650 ml # Bowel Movements 0 0 Exam General: Alert, oriented X3, cooperative, pleasant, not in acute distress. Head: Normocephalic atraumatic, extraocular muscles intact, anicteric sclerae, mucosa membrane moist. Neck: Neck supple with full range of motion. Chest & Lungs: Mild rales at the bases. Otherwise clear to auscultation bilaterally with no wheezes or rhonchi. Cardiovascular: Regular Rate/Rhythm, No Murmurs/Rubs/Gallops. Abdomen: Soft, Non-distended, Moderately tender to palpation in the epigastric area. No guarding or rebound tenderness. Normoactive bowel tones. No hepatomegaly appreciated. No ascites/fluid wave. Extremities: No cyanosis/clubbing/edema bilaterally. Neurological: normal speech, sensation Intact. Skin: no jaundice. Lab and Diagnostics Result Diagram: 09/24/16 0230 09/24/16 0230 Assessment & Plan Ghassan Moore is a 61-year-old male with liver disease and known esophageal varices who reports she is followed by Dr. Sanchez and actually scheduled to undergo banding of varices in the next several weeks who presents complaining of hematemesis. Patient is admitted for further treatment and management of gastrointestinal bleeding. 1. Acute hematemesis, present on admission. Active - Likely secondary to upper bleed due to patient's history of esophageal varices, peptic ulcer disease, gastritis, portal hypertensive gastropathy, Marie-Dahl tear, etc - Continue Protonix and Octreotide ggt - - Nothing by mouth since last night - Hemoglobin and hematocrit stable - Upper endoscopy at noon by Dr. Freeman 2. Alcoholic cirrhosis with chronic hepatic encephalopathy, present on admission. Stable - Elevated ammonia - Continue outpatient dose of lactulose, rifaximin and miralax 3. Post traumatic stress disorder, present on admission. Presumed stable - Continue abilify 5 mg daily - Continue mirtazapine 15 mg daily - Ativan 1 mg every 4 hours orally as needed for anxiety - Dilaudid 1 mg intravenously every 2 hours as needed for pain 4. Hypertension, chronic. Presumed stable - Continue furosemide 40 mg daily - Continue spironolactone 100 mg daily (replace by pharmacy) - Continue to monitor 5. Diabetes mellitus, chronic. Presumed stable -Metformin 100 mg twice a day at home; will hold for now -Nutritional and low dose correctional insulin -Continue to monitor blood glucose 6. Colon polyps, chronic. Presumed stable -Colonoscopy by Dr. Ellis as outpatient on 10/27/16 Patient status: Patient was admitted under inpatient status with expected length of stay greater than to midnights due to severity of presenting symptoms , risk of adverse event, and complexity of treatment plan. . Pain Evaluation: Adequate Pain Control GI Prophylaxis: Proton Pump Inhibitor Resuscitation Status: CPR: Attempt Resuscitation Attending Statement The patient was seen and examined together with Dr. Wilder on 09/24/2016 and I agree with the history, exam and plan as outlined in the note above. . Micaela Wilder DO Sep 24, 2016 14:07 Blake Piper MD Sep 25, 2016 08:08
--- NOTE | 2016-09-24 18:10 | NUR ---
Endo/Pain Patient a/o x 3, c/o abd and back pain meds x 2 given with good effect. NO S/S bleeding this shift. Patient npo since midnight, down to Endo at 1330. Patient c/o nausea no emesis apon return to room from Endo, Zofran given with good effect. Patient dozing intermittently, arouses easily. Ativan given x 1 for anxiety. Will cont poc.
--- NOTE | 2016-09-24 23:00 | ENDO ---
[address] [address] ENDOSCOPY PROCEDURE PATIENT: SEEMA BECERRIL : 1955 MR#: [id number] ADMIT: 09/23/2016 JOB ID: [id number] DATE: 09/24/2016 OPERATION: Esophagogastroduodenoscopy with banding x7. PREOPERATIVE DIAGNOSIS(ES): Hematemesis. POSTOPERATIVE DIAGNOSIS(ES): 1. Grade 4 esophageal varices seen throughout the entire esophagus status post banding x7. 2. Moderate portal hypertensive gastropathy. No gastric varices were seen. ANESTHESIA: Monitored anesthesia care. COMPLICATIONS: None. BLOOD LOSS: Minimal. DESCRIPTION OF PROCEDURE: After risks and benefits were explained, the patient's informed consent was obtained. After anesthesia was administered, upper endoscope was inserted into the mouth and intubated into the esophagus, stomach, and second portion of the duodenum and mucosa carefully examined. After procedure was done, the scope withdrawn and the procedure terminated. FINDINGS: Upon inspection of the esophagus, there were four columns of grade 4 esophageal varices that were seen throughout the entire esophagus. Z-line located 40 cm from incisors. Upon entering the stomach, there was moderate portal hypertensive gastropathy that was seen. No gastric ulcers and no gastric varices were seen on retroflexion. No Marie-Dahl tear. Duodenal bulb, 1st and 2nd portion, were normal. Afterwards, esophageal banding times 7 was deployed at the esophageal varices with good hemostasis. IMPRESSIONS: 1. Four columns of grade 4 esophageal varices status post banding x7. 2. No gastric varices were seen. 3. Moderate portal hypertensive gastropathy. RECOMMENDATIONS: 1. N.p.o. except for medications until tomorrow morning. If hemoglobin stable without overt signs of bleeding, then can start clear liquid diet and advance as tolerated. 2. Continue octreotide drip at this point in time. 3. Okay to transition to Protonix 40 mg by mouth twice a day. 4. The patient will need a repeat EGD with an outpatient with banding with anesthesia in two weeks. This can be scheduled with Dr. Ellis. The patient will follow up with Dr. Ellis as an outpatient.
[2016-09-25] MEDS: Octreotide Inj 500 MCG in 0.9% Sodium Chloride 99 ML IV SCH ×3 (00:27→12:25)
[2016-09-25] MEDS: Pantoprazole Inj 80 MG in 0.9% Sodium Chloride 80 ML IV SCH (00:28)
[2016-09-25 02:28] LABS: Mean Corpuscular Hemoglobin 28.4 pg (27.0-35.0); Mean Corpuscular Volume 85.5 fL (81-100)
[2016-09-25] MEDS: 0.9% Sodium Chloride 1,000 ML IV SCH ×3 (02:48→19:59)
[2016-09-25] MEDS: HYDROmorphone 0.5 mg/0.5 mL iSecure Syringe IVPUSH PRN ×2 (02:56→08:15)
--- NOTE | 2016-09-25 04:43 | NUR ---
GI Octreotide, Protonix and NS continue infusing overnight. Pt remains NPO except meds- Pt very upset/ agitated with NPO status - reviewed with pt the importance of being NPO at this time, confirmed diet order with Dr. Adalberto Charltonid x3 given for 7/10 generalized pain, IV Ativan x2 given for anxiety. pt sleeping throughout majority of the night.
[2016-09-25] MEDS: Insulin LISPRO 300 Unit/3 mL Inj SUBQ SCH ×4 (08:00→21:30)
[2016-09-25 08:09] VITALS: BP 136/78; PULSE 82; RESP 16; O2SAT 95
[2016-09-25] MEDS: Lactulose 20 Gm/30 mL 30 mL Syrup PO SCH ×2 (08:14→20:30)
[2016-09-25] MEDS: Fluticasone 0.05% 15 Spray/2 Gm 16 Gm Nasal Spray NASAL SCH ×2 (08:15→20:30)
--- NOTE | 2016-09-25 10:53 | PCM.PNMED ---
Subjective Date of Service Sep 25, 2016 Subjective Patient slept through the night. Continues to c/o abdominal pain, nausea and anxiety. Advancing NPO diet to soft, liquid diet. Switching to oral pain meds today, oral protonix. Exam Vital Signs Vital Sign - Last Date Time Temp Pulse Resp B/P Pulse Ox O2 Delivery O2 Flow Rate FiO2 09/25/16 08:09 37.0 82 16 136/78 95 Room Air Intake and Output 09/24/16 09/24/16 09/25/16 Cumulative From/Thru 15:00 23:00 07:00 09/23/16 14:57 - 09/25/16 06:04 Intake Total 225 ml 1308 ml 1298 ml 4351 ml Output Total 1000 ml 600 ml 2250 ml Balance 225 ml 308 ml 698 ml 2101 ml Intake Oral 0 ml 400 ml IV Total 225 ml 1308 ml 1298 ml 3951 ml Output Urine Total 1000 ml 600 ml 2250 ml # Voids 2 2 # Bowel Movements 0 Exam General: Alert, oriented X3, cooperative, pleasant, not in acute distress. Chest & Lungs: Mild rales at the bases. Otherwise clear to auscultation bilaterally with no wheezes or rhonchi. Cardiovascular: Regular Rate/Rhythm, No Murmurs/Rubs/Gallops. Abdomen: Soft, Non-distended, Moderately tender to palpation in the epigastric area. No guarding or rebound tenderness. Normoactive bowel tones. No hepatomegaly appreciated. No ascites/fluid wave. Extremities: No cyanosis/clubbing/edema bilaterally. Neurological: normal speech, sensation Intact. Skin: no jaundice. Lab and Diagnostics Result Diagram: 09/25/1619909/25/16 020 Assessment & Plan Ghassan Moore is a 61-year-old male with liver disease and known esophageal varices who reports she is followed by Dr. Sanchez and actually scheduled to undergo banding of varices in the next several weeks who presents complaining of hematemesis. Patient is admitted for further treatment and management of gastrointestinal bleeding. 1. Acute hematemesis, present on admission. Resolved - Likely secondary to upper bleed due to patient's history of esophageal varices, peptic ulcer disease, gastritis, portal hypertensive gastropathy, Marie-Dahl tear, etc - S/p EGD w banding x [address] Carbajal - Switched to oral Protonix 40 mg twice a day, continued Octreotide ggt for now - Soft liquid diet today, advance a s tolerated - Hemoglobin and hematocrit stable, continue to monitor - Recommendation per gastroenterology is to follow up as an outpatient with Dr. Ellis for repeat EGD with banding under anesthesiology in 2 weeks - Switched IV pain meds to oral percocet 5-325, 1 tab every 4 hours as needed for pain 2. Alcoholic cirrhosis with chronic hepatic encephalopathy, present on admission. Stable - Elevated ammonia - Continue outpatient dose of lactulose, rifaximin and miralax 3. Post traumatic stress disorder, present on admission. Presumed stable - Continue abilify 5 mg daily - Continue mirtazapine 15 mg daily - Ativan 1 mg every 4 hours orally as needed for anxiety 4. Hypertension, chronic. Presumed stable - Continue furosemide 40 mg daily - Continue spironolactone 100 mg daily (replace by pharmacy) - Continue to monitor 5. Diabetes mellitus, chronic. Presumed stable -Metformin 100 mg twice a day at home; will hold for now -Nutritional and low dose correctional insulin -Continue to monitor blood glucose 6. Colon polyps, chronic. Presumed stable -Colonoscopy by Dr. Ellis as outpatient on 10/27/16 Patient status: Patient was admitted under inpatient status with expected length of stay greater than to midnights due to severity of presenting symptoms , risk of adverse event, and complexity of treatment plan. . GI Prophylaxis: Proton Pump Inhibitor Resuscitation Status: CPR: Attempt Resuscitation Attending Statement The patient was seen and examined together with House Staff/Resident on 09/25/16 and I agree with the history, exam and plan as outlined in the note above. Micaela Wilder DO Sep 25, 2016 10:53 Shukri Alvarado Sep 29, 2016 19:19
[2016-09-25] MEDS: oxyCODONE-Acetamin 5-325 mg Tablet PO PRN ×4 (12:17→21:13)
[2016-09-25 13:11] VITALS: BP 130/81; PULSE 81; RESP 17; O2SAT 95
--- NOTE | 2016-09-25 14:28 | PCM.PNMED ---
Subjective Date of Service Sep 25, 2016 Subjective GASTROENTEROLOGY PROGRESS NOTE: The patient is s/p EGD with banding x7. This morning, patient reports persistent epigastric abdominal pain, nausea, dry heaving, and generalized fatigue. However, he admits to extreme hunger and asks for food. Patient has no signs of overt GI bleeding. He denies hematemis, melena, or hematochezia. H/H stable. His diet is advanced from NPO to clear liquid today. Exam Vital Signs Vital Sign - Last Date Time Temp Pulse Resp B/P Pulse Ox O2 Delivery O2 Flow Rate FiO2 09/25/16 13:11 36.6 81 17 130/81 95 Room Air Intake and Output 09/24/16 09/24/16 09/25/16 Cumulative From/Thru 15:00 23:00 07:00 09/23/16 14:57 - 09/25/16 06:04 Intake Total 225 ml 1308 ml 1298 ml 4351 ml Output Total 1000 ml 600 ml 2250 ml Balance 225 ml 308 ml 698 ml 2101 ml Intake Oral 0 ml 400 ml IV Total 225 ml 1308 ml 1298 ml 3951 ml Output Urine Total 1000 ml 600 ml 2250 ml # Voids 2 2 # Bowel Movements 0 Exam General: Alert, oriented X3, cooperative, pleasant, not in acute distress. Head: NCAT, EOMI. Anicteric sclerae. Mucosa membrane moist. Neck: Neck supple with full range of motion. Chest & Lungs: Mild rales at the bases. Otherwise clear to auscultation bilaterally with no wheezes or rhonchi. Normal effort. Cardiovascular: Regular Rate/Rhythm, Normal S1, Normal S2, No Murmurs/Rubs/ Gallops. Abdomen: Soft, Non-distended, Moderately tender to palpation in the epigastric area. No guarding or rebound tenderness. Normoactive bowel tones. No hepatomegaly appreciated. No ascites/fluid wave. Extremities: No cyanosis/clubbing/edema bilaterally. Neurological: normal speech, sensation Intact. Skin: no jaundice. IVs and Medications Medications Reviewed: Medications were reviewed in detail Lab and Diagnostics Result Diagram: 09/25/1619909/25/16199 Assessment & Plan This is a 61 yo male with history of PTSD, alcoholic liver cirrhosis Child-Pitt class B, esophageal varices, diabetes type II, hypertension, and normal pressure hydrocephalus who presents to the ED with chief complaint of hematemesis and epigastric abdominal pain onset at 1230pm today. He has a MELD score of 13 and Maddrey's discriminant function score of 4.8. Thus, steroids are not indicated. Last alcoholic use was 3 months ago. He is followed by Dr. Ellis as outpatient with plan for EGD with serial banding over the next year due to intolerance to beta sandhya. AFP 3.7 on 09/10/16. Last EGD on 04/2015 showed Grade 2-3 distal esophageal varices and portal hypertensive gastropathy, possible distal gastric varices. s/p 09/24/16 EGD IMPRESSIONS: 1. Four columns of grade 4 esophageal varices status post banding x7. 2. No gastric varices were seen. 3. Moderate portal hypertensive gastropathy. RECOMMENDATIONS: 1. Continue to advance diet as tolerated. 2. Continue octreotide drip at this point in time for the total of 3 days ( can stop on 09/26) 3. Continue Protonix 40 mg by mouth twice a day. 4. The patient will need a repeat EGD with an outpatient with banding with anesthesia in two weeks. This can be scheduled with Dr. Ellis. The patient will follow up with Dr. Ellis as an outpatient. 5. If hb stable and no overt signs gi bleed on 09/26, then ok to d/c home at that time. Thank you for the consultation. We will continue to follow. Please do not hesitate to contact us for any question or concern. Pain Evaluation: Adequate Pain Control GI Prophylaxis: Proton Pump Inhibitor Resuscitation Status: CPR: Attempt Resuscitation Chung Rutledge DO Sep 25, 2016 14:28 Tadeo Carbajal MD Sep 25, 2016 14:44 - [place] of an upper endoscopy discussed with the patient and his , and they wish to proceed. Will plan for an EGD sometime tomorrow. - Monitor serial H/H. - Continue outpatient dose of Lactulose and Miralax. - Will defer the colonoscopy to Dr. Ellis as outpatient. Patient should keep his appointment on 10/27/16. - Alcohol cessation. Pain Evaluation: Adequate Pain Control GI Prophylaxis: Proton Pump Inhibitor Resuscitation Status: CPR: Attempt Resuscitation Chung Rutledge DO Sep 25, 2016 14:28
--- NOTE | 2016-09-25 15:43 | NUR ---
Social Work: readiness for discharge D: Pt discussed in am rounds. Pt is not medially stable for discharge at this time. Pt anticipated to be ready for discharge tomorrow. EMR reviewed; pt has been ambulating I during admission. No social work needs identified at this time. [employer] OFFICER met with pt at bedside. Pt expresses no concerns about d/c home when ready. Pt's will transport. A: Pt who is I at baseline. P: Anticipate pt to d/c home when medically stable; SW to continue to follow. ZAID Remy
[2016-09-25] MEDS: Pantoprazole 40 mg ER24 Tablet PO SCH (16:29)
--- NOTE | 2016-09-25 18:35 | NUR ---
GI/Abdominal pain No reports of chest pain/pressure/discomfort. No tele, HR 70s-80s. No reports of SOB. SPO2 on RA 98% -- denies cough. Reports very mild nausea, improving. No emesis, no diarrhea or constipation. Tolerating clear liquid diet well, advanced to full liquid. Voiding without complication. Alert and oriented x3, COLE, reports full sensation, mild decrease r/t malaise. Patient continues to report 5/10 abdominal pain -- switched to PO Percocet 1 tab Q4 PRN from IV Dilaudid 1mg Q2. Patient states "it just isn't cutting it" -- MD consulted, increased to 1-2 tab Q4 PRN. Patient requesting pain medicine and IV Ativan every 4 hours.
[2016-09-25 19:53] VITALS: BP 124/78; PULSE 78; RESP 16; O2SAT 95
--- NOTE | 2016-09-25 21:40 | NUR ---
N/V Pt has been tolerating full liquid diet well, advanced diet to soft and tolerating just fine with no reports of N/V. Pts pain has been controlled with 2 tabs Oxycodone-Acetamin. 5-325mg Q4.
[2016-09-26] MEDS: Octreotide Inj 500 MCG in 0.9% Sodium Chloride 99 ML IV SCH ×3 (00:25→19:58)
[2016-09-26 02:51] LABS: Mean Corpuscular Hemoglobin 28.4 pg (27.0-35.0); Mean Corpuscular Volume 84.6 fL (81-100)
[2016-09-26] MEDS: oxyCODONE-Acetamin 5-325 mg Tablet PO PRN ×5 (03:32→21:37)
[2016-09-26 03:45] VITALS: BP 129/87; PULSE 102; RESP 17; O2SAT 94
[2016-09-26] MEDS: 0.9% Sodium Chloride 1,000 ML IV SCH ×3 (05:43→22:36)
[2016-09-26] MEDS: Insulin LISPRO 300 Unit/3 mL Inj SUBQ SCH ×4 (08:00→21:40)
--- NOTE | 2016-09-26 08:16 | PCM.PNSURG ---
Subjective Date of Service: Sep 26, 2016 Date of Service: Sep 26, 2016 Visit Information: Subjective: no acute events overnight. hb 13.3. no overt signs gi bleed. Postop General: No Complaints Objective Vital Sign- Last 8 Hours Date Time Temp Pulse Resp B/P Pulse Ox O2 Delivery O2 Flow Rate FiO2 09/26/16 03:45 37.0 102 17 129/87 94 Room Air Intake and Output- Last 8 Hour 09/26/16 Cumulative From/Thru 07:00 09/23/16 14:57 - 09/26/16 06:53 Intake Total 1150 ml 8114 ml Output Total 1150 ml 4500 ml Balance 0 ml 3614 ml Intake Oral 600 ml 2250 ml IV Total 550 ml 5864 ml Output Urine Total 1150 ml 4500 ml # Voids 1 5 # Bowel Movements 1 1 General: Oriented X3 Neck: Supple Lungs: Clear to Auscultation Heart: Exam Unremarkable Abdomen: Benign, Soft, Non-tender, Non-distended, Normoactive bowel tones Extremities: Distal Pulses Palpable Result Diagram: 09/26/1621409/26/16214 Assessment & Plan Impression 61 yo male with history of PTSD, alcoholic liver cirrhosis Child-Pitt class B, esophageal varices, diabetes type II, hypertension, and normal pressure hydrocephalus who presents to the ED with chief complaint of hematemesis and epigastric abdominal pain. He has a MELD score of 13 and Maddrey's discriminant function score of 4.8. Thus, steroids are not indicated. Last alcoholic use was 3 months ago. He is followed by Dr. Ellis as outpatient with plan for EGD with serial banding over the next year due to intolerance to beta sandhya. AFP 3.7 on 09/10/16. Last EGD on 04/2015 showed Grade 2-3 distal esophageal varices and portal hypertensive gastropathy, possible distal gastric varices. s/p 09/24/16 EGD IMPRESSIONS: 1. Four columns of grade 4 esophageal varices status post banding x7. 2. No gastric varices were seen. 3. Moderate portal hypertensive gastropathy. Recs: 1. ok to d/c home today 2. d/c octreotide drip 3. Continue Protonix 40 mg by mouth twice a day. 4. repeat EGD with an outpatient with banding with anesthesia in two weeks. This can be scheduled with Dr. Ellis. The patient will follow up with Dr. Ellis as an outpatient. will sign off. Problems: Resuscitation Status: CPR: Attempt Resuscitation Tadeo Carbajal MD Sep 26, 2016 08:16
[2016-09-26 08:40] VITALS: BP 136/81; PULSE 88; RESP 18; O2SAT 96
[2016-09-26] MEDS: Lactulose 20 Gm/30 mL 30 mL Syrup PO SCH ×2 (09:00→19:57)
[2016-09-26] MEDS: Pantoprazole 40 mg ER24 Tablet PO SCH ×2 (09:00→16:30)
[2016-09-26] MEDS: Fluticasone 0.05% 15 Spray/2 Gm 16 Gm Nasal Spray NASAL SCH ×2 (09:00→19:57)
--- NOTE | 2016-09-26 10:00 | NUR ---
[facility] Signed
[2016-09-26] MEDS: Ondansetron 2 mg/mL 2 mL Inj IVPUSH PRN (10:37)
--- NOTE | 2016-09-26 11:53 | NUR ---
Social Work: Readiness for Discharge D: Pt discussed in am rounds. Pt is not medically stable for discharge at this time but is anticipated to be ready for d/c on Wednesday. Per bedside RN, pt is expressing anxiety about discharge home and is requesting DIETARY COOK follow up. DIETARY COOK met with pt at bedside to discuss discharge plan. Pt states that he agrees with his plan to d/c home but has the most concern about being discharged prematurely. Pt specifically wants to ensure that the source of his nausea and vomiting is located before being sent home. DIETARY COOK validated pt's concerns. Pt's doctor and bedside RN are aware of this complaint. Pt expresses no further concerns about discharge. EMR reviewed; pt has been ambulating I during admission. Pt denies any concerns about ambulation and gait stability. A: Pt who is I at baseline. P: Anticipate pt to discharge home when medically stable; DIETARY COOK to continue to follow. ZAID Remy
[2016-09-26 13:10] VITALS: BP 139/81; PULSE 74; RESP 18; O2SAT 96
--- NOTE | 2016-09-26 14:13 | NUR ---
Anxiety Patient states feeling very anxious despite IV lorazepam given Q4 hours. He states he is worried that his doctors might be missing something and that his disease might progress at home. This RN providing reassuring approach with patient and allowing time to voice his concerns.
--- NOTE | 2016-09-26 15:45 | PCM.PNMED ---
Subjective Date of Service Sep 26, 2016 Subjective tolerating advancing diet but complains of significant generalized weakness, anxiety and occasional nausea. Exam Vital Signs Vital Sign - Last Date Time Temp Pulse Resp B/P Pulse Ox O2 Delivery O2 Flow Rate FiO2 09/26/16 13:10 36.6 74 18 139/81 96 Room Air Intake and Output 09/25/16 09/25/16 09/26/16 Cumulative From/Thru 15:00 23:00 07:00 09/23/16 14:57 - 09/26/16 06:53 Intake Total 2613 ml 1150 ml 8114 ml Output Total 1100 ml 1150 ml 4500 ml Balance 1513 ml 0 ml 3614 ml Intake Oral 1250 ml 600 ml 2250 ml IV Total 1363 ml 550 ml 5864 ml Output Urine Total 1100 ml 1150 ml 4500 ml # Voids 2 1 5 # Bowel Movements 1 1 General: Alert, Oriented X3, Cooperative, No Acute Distress Head: Normal Eyes: Scleral Anicteric Nose: Mucous Membr Moist/[place] Mouth: Mucous Membr Moist/[place] Neck: Supple Chest & Lungs: Chest Wall Normal, Clear to auscultation & percussion Cardiovascular: Regular Rate/Rhythm Abdomen: Non-tender, Non-distended, Normoactive bowel tones, Soft Extremities: No cyanosis/clubbing/edma bilat Neurological: Grossly Neurologically Intact, Normal Speech IVs and Medications Medications Reviewed: Medications were reviewed in detail Lab and Diagnostics Result Diagram: 09/26/1621409/26/16214 Assessment & Plan 61-year-old male with liver disease and known esophageal varices who reports she is followed by Dr. Sanchez and actually scheduled to undergo banding of varices in the next several weeks who presents complaining of hematemesis. Patient is admitted for further treatment and management of gastrointestinal bleeding. 1. Acute hematemesis, present on admission. Resolved - Likely secondary to upper bleed due to patient's history of esophageal varices, peptic ulcer disease, gastritis, portal hypertensive gastropathy, Marie-Dahl tear, etc - post esophagogastroduodenoscopy (EGD) on 09/24/[address] Carbajal with findings: - Four columns of grade 4 esophageal varices status post banding x7. - No gastric varices were seen. - Moderate portal hypertensive gastropathy. - Switched to oral Protonix 40 mg twice a day - Tolerating advancing diet - Hemoglobin and hematocrit stable - Recommendation per gastroenterology is to follow up as an outpatient with Dr. Ellis for repeat EGD with banding under anesthesiology in 2 weeks 2. Alcoholic cirrhosis with chronic hepatic encephalopathy, present on admission. Stable - Elevated ammonia - Continue outpatient dose of lactulose, rifaximin and miralax 3. Post traumatic stress disorder, present on admission. Presumed stable - Continue abilify 5 mg daily - Continue mirtazapine 15 mg daily - Ativan as needed for anxiety 4. Hypertension, chronic. Presumed stable - Continue furosemide 40 mg daily - Continue spironolactone 100 mg daily (replace by pharmacy) - Continue to monitor 5. Diabetes mellitus, chronic. Presumed stable -Metformin 100 mg twice a day at home; will hold for now -Nutritional and low dose correctional insulin -Continue to monitor blood glucose 6. Colon polyps, chronic. Presumed stable -Colonoscopy by Dr. Ellis as outpatient on 10/27/16 7. Generalized weakness - Physical therapy consult. Dispo: likely home tomorrow pending ability to tolerate advancing diet and ability to safely ambulate GI Prophylaxis: Proton Pump Inhibitor Resuscitation Status: CPR: Attempt Resuscitation Shukri Alvarado Sep 26, 2016 15:45 3. Moderate portal hypertensive gastropathy. RECOMMENDATIONS: 1. Continue to advance diet as tolerated. 2. Continue octreotide drip at this point in time for the total of 3 days ( can stop on 09/26) 3. Continue Protonix 40 mg by mouth twice a day. 4. The patient will need a repeat EGD with an outpatient with banding with anesthesia in two weeks. This can be scheduled with Dr. Ellis. The patient will follow up with Dr. Ellis as an outpatient. 5. If hb stable and no overt signs gi bleed on 09/26, then ok to d/c home at that time. Thank you for the consultation. We will continue to follow. Please do not hesitate to contact us for any question or concern. GI Prophylaxis: Proton Pump Inhibitor Resuscitation Status: CPR: Attempt Resuscitation Shukri Alvarado Sep 26, 2016 15:45 Shukri Alvarado Sep 26, 2016 15:45
[2016-09-26] MEDS: LORazepam 1 mg Tablet PO PRN ×2 (17:58→21:37)
[2016-09-26 23:38] VITALS: BP 138/84; PULSE 86; RESP 18; O2SAT 93
--- NOTE | 2016-09-27 01:58 | NUR ---
DIET/BLOOD SUGARS/MENTATION Pt in good spirits, denies any anxiety or N/V. Tolerating soft diet well, BS were 176 no insulin given. Pt pleasant and talkative, stated that he is an "empty katerina" now, and that its a new experience that him and his have not quite adjusted to. Vitals stable, uneventful night.
[2016-09-27] MEDS: Insulin LISPRO 300 Unit/3 mL Inj SUBQ SCH ×2 (08:00→12:00)
[2016-09-27 08:15] VITALS: BP 134/76; PULSE 84; RESP 20; O2SAT 98
[2016-09-27] MEDS: Pantoprazole 40 mg ER24 Tablet PO SCH (08:24)
[2016-09-27] MEDS: oxyCODONE-Acetamin 5-325 mg Tablet PO PRN (08:24)
[2016-09-27] MEDS: LORazepam 1 mg Tablet PO PRN ×2 (08:25→13:03)
[2016-09-27] MEDS: Lactulose 20 Gm/30 mL 30 mL Syrup PO SCH (08:26)
[2016-09-27] MEDS: Fluticasone 0.05% 15 Spray/2 Gm 16 Gm Nasal Spray NASAL SCH (08:26)
[2016-09-27] MEDS: Octreotide Inj 500 MCG in 0.9% Sodium Chloride 99 ML IV SCH (09:00)
[2016-09-27] MEDS ORDERED: PANT40TA3 PO (11:52)
--- NOTE | 2016-09-27 11:56 | PCM.DIMED ---
Discharge Instructions Date of Service Sep 27, 2016 Dates of Hospitalization Sep 23, 2016 at 17:10 Discharge Diagnosis Discharge Diagnosis 1. Acute hematemesis, present on admission. Resolved - Likely secondary to upper bleed - post esophagogastroduodenoscopy (EGD) on 09/24/[address] Carbajal with findings: - Four columns of grade 4 esophageal varices status post banding x 7. - No gastric varices were seen. - Moderate portal hypertensive gastropathy. - Recommendation is to follow up as an outpatient with Dr. Ellis for repeat EGD with banding under anesthesiology in 2 weeks 2. Alcoholic cirrhosis with chronic hepatic encephalopathy, present on admission. Stable 3. Post traumatic stress disorder, present on admission. Stable 4. Hypertension, chronic. Stable 5. Diabetes mellitus, chronic. 6. Colon polyps, chronic. -Colonoscopy by Dr. Ellis as outpatient on 10/27/16 Diet Low fat, Low Sodium, Heart Healthy, Diabetic Activity No restrictions Call your provider Fever or Chills, Shortness of breath, Bleeding, Chest pain, Vomitting Patient Instructions Seek immediate medical attention if any new or worsening signs or symptoms occur. Follow-up plan 1. Followup with primary care provider in 2-5 days 2. Follow up with Gastroenterology (Dr. Ellis) for repeat EGD with banding under anesthesiology in 2 weeks Follow-up Provider: Peter Newman DO Provider: Dakota Ellis MD, Masoud Sep 27, 2016 11:56
[2016-09-27] MEDS: 0.9% Sodium Chloride 1,000 ML IV SCH (11:59)
--- NOTE | 2016-09-27 13:14 | NUR ---
Social Work Note: Discharge Data& Assessment: EMR reviewed. Per pt is medically improved and ready to discharge. Ghassan Moore is a 61 year old male admitted on 09/23/2016 for GI Bleed and R/O Varices. Per pt is medically improved and ready to discharge home with his spouse. SW met with pt at bedside to confirm discharge plan and assess for any unmet needs. Pt is ambulating in his room independently. Pt states his is coming to transport him home today. Pt denies any other needs at this time. No other discharge needs identified. Plan: Per pt is medically ready to discharge home via POV. Pt denies any other needs at this time. No other discharge needs identified. ZAID Liu
[2016-09-27] MEDS ORDERED: OXYC-474 PO (13:34)
--- NOTE | 2016-09-27 15:05 | PCM.DC.MED ---
Discharge Summary Date of Service Sep 27, 2016 Dates of Hospitalization Date of Hospital Admission Sep 23, 2016 at 17:10 Date of Discharge: Sep 27, 2016 Providers: Admitting Physician: Blake Piper MD Primary Care Physician: Peter Newman DO Attending Physician: Blake Piper MD Diagnosis at Time of Discharge Diagnosis at Time of Discharge 1. Acute hematemesis, present on admission. Resolved - Likely secondary to upper bleed - post esophagogastroduodenoscopy (EGD) on 09/24/[address] Carbajal with findings: - Four columns of grade 4 esophageal varices status post banding x 7. - No gastric varices were seen. - Moderate portal hypertensive gastropathy. - Recommendation is to follow up as an outpatient with Dr. Ellis for repeat EGD with banding under anesthesiology in 2 weeks 2. Alcoholic cirrhosis with chronic hepatic encephalopathy, present on admission. Stable 3. Post traumatic stress disorder, present on admission. Stable 4. Hypertension, chronic. Stable 5. Diabetes mellitus, chronic. 6. Colon polyps, chronic. -Colonoscopy by Dr. Ellis as outpatient on 10/27/16 Consultations 1. GI (Dr. Carbajal) Procedures Invasive Procedures DATE: 09/24/2016 OPERATION: Esophagogastroduodenoscopy with banding x7. PREOPERATIVE DIAGNOSIS(ES): Hematemesis. POSTOPERATIVE DIAGNOSIS(ES): 1. Grade 4 esophageal varices seen throughout the entire esophagus status post banding x7. 2. Moderate portal hypertensive gastropathy. No gastric varices were seen. IMPRESSIONS: 1. Four columns of grade 4 esophageal varices status post banding x7. 2. No gastric varices were seen. 3. Moderate portal hypertensive gastropathy. RECOMMENDATIONS: 1. N.p.o. except for medications until tomorrow morning. If hemoglobin stable without overt signs of bleeding, then can start clear liquid diet and advance as tolerated. 2. Continue octreotide drip at this point in time. 3. Okay to transition to Protonix 40 mg by mouth twice a day. 4. The patient will need a repeat EGD with an outpatient with banding with anesthesia in two weeks. This can be scheduled with Dr. Ellis. The patient will follow up with Dr. Ellis as an outpatient. Tadeo Carbajal MD 09/24/16 3739 <Electronically signed by Tadeo Carbajal MD> 09/25/16 9164 Brief History As noted in H&P by Dr. Wilder: This is a 61 year old male with a history of posttraumatic stress disorder, alcoholic liver cirrhosis Child-Pitt class B, diabetes mellitus, hypertension, normal pressure hydrocephalus, esophageal varices managed by Dr. Ellis who presented to [facility] Emergency Department due to hematemesis that began earlier this morning. Patient had one episode of emesis that appeared to be gross blood followed by nausea and vomiting of bile. Last endoscopy 05/2015. Primary care provider Dr. Newman. Patient sent from Dr. Lamar, neurologist's office today. Patient denies hematochezia, constipation, diarrhea, dysuria, headache, fever, or chills at this time. Patient reports having decreased appetite severe abdominal pain. According to the patient his last alcohol intake was about 3 months ago. Patient had an esophagogastroduodenoscopy by Dr. Ellis on 04/09/2015 that showed grade 2-3 distal esophageal varices and portal hypertensive gastropathy, possible distal gastric varices. He has been following Dr. Ellsi as outpatient and was scheduled to have a double endoscopy on 10/27/[address] Ellis. There is an ongoing plan for serial banding over the next year. He has history of colonic polyps that requires colonoscopy every 3 years. The last colonoscopy was 3 years ago. He reports that he is taking lactulose and reports that he is not tolerating this well. His last ammonia level was 178 on 09/10/16. He reports that Dr. Ellis suggested that he decreases the lactulose and add Miralax. In the ED, patient's initial Hgb 15.5, Hct 45.3. Platelet 106. INR 1.16. Repeat H/H pending. Total bilirubin 2.5. AST 59, ALT 40. Ammonia 106. Gastroenterology service was consulted to help with the hematemesis, esophageal varices, and alcohol cirrhosis. Hospital Course 1. Acute hematemesis, present on admission. Resolved - Likely secondary to upper bleed due to patient's history of esophageal varices, peptic ulcer disease, gastritis, portal hypertensive gastropathy, Marie-Dahl tear, etc - post esophagogastroduodenoscopy (EGD) on 09/24/[address] Carbajal with findings: - Four columns of grade 4 esophageal varices status post banding x7. - No gastric varices were seen. - Moderate portal hypertensive gastropathy. - Switched to oral Protonix 40 mg twice a day - Tolerating advancing diet - Hemoglobin and hematocrit stable - Recommendation per gastroenterology is to follow up as an outpatient with Dr. Ellis for repeat EGD with banding under anesthesiology in 2 weeks 2. Alcoholic cirrhosis with chronic hepatic encephalopathy, present on admission. Stable - Elevated ammonia - Continue outpatient dose of lactulose, rifaximin and miralax 3. Post traumatic stress disorder, present on admission. Presumed stable - Continue Abilify 5 mg daily - Continue mirtazapine 15 mg daily - Ativan as needed for anxiety was given during this hospital 4. Hypertension, chronic. Presumed stable - Continue furosemide 40 mg daily - Continue spironolactone 100 mg daily (replace by pharmacy) - Continue to monitor 5. Diabetes mellitus, chronic. Presumed stable - Metformin 100 mg twice a day at home - Nutritional and low dose correctional insulin 6. Colon polyps, chronic. Presumed stable - Colonoscopy by Dr. Ellis as outpatient on 10/27/16 7. Generalized weakness - Physical therapy consult. Exam Vital Signs (Last) Date Time Temp Pulse Resp B/P Pulse Ox O2 Delivery O2 Flow Rate FiO2 09/27/16 08:15 36.7 84 20 134/76 98 Room Air Exam General: Alert, Oriented X3, Cooperative, No Acute Distress Head: Normal Eyes: Scleral Anicteric Nose: Mucous Membr Moist/[place] Mouth: Mucous Membr Moist/[place] Neck: Supple Chest & Lungs: Chest Wall Normal, Clear to auscultation & percussion Cardiovascular: Regular Rate/Rhythm Abdomen: Non-tender, Non-distended, Normoactive bowel tones, Soft Extremities: No cyanosis/clubbing/edma bilat Neurological: Grossly Neurologically Intact, Normal Speech Test 09/23/16 15:48 09/23/16 20:46 09/24/16 02:30 09/26/16 02:15 Prothrombin Time 12.5sec (8.1-12.5) Prothromb Time International Ratio 1.16ratio Magnesium Level 1.7mg/dL (1.6-2.6) Ammonia 106ug/dL (18-53) Hold Guerra Top Tube Received (Received) Urine Color Yellow (YELLOW) Urine Appearance Clear (CLEAR,HAZY) Urine pH 6.0 (5.0-8.0) Urine Specific [place] 1.025 (1.003-1.035) Urine Protein Negativemg/dL (NEG,TRACE) Urine Glucose (UA) >1000mg/dL (NEGATIVE) Urine Ketones 15mg/dL (NEGATIVE) Urine Occult Blood Negative (NEGATIVE) Urine Nitrite Negative (NEGATIVE) Urine Bilirubin Negative (NEGATIVE) Urine Urobilinogen Normalmg/dL (NORMAL) Urine Leukocyte Esterase Negative (NEGATIVE) Urine RBC 0-2/hpf (0-2) Urine WBC 0-5/hpf (0-5) Urine Epithelial Cells Few/hpf (NONE-MOD) Urine Crystals None seen (NONE SEEN) Urine Bacteria Few/hpf (NONE-FEW) Urine Hyaline Casts None/lpf (NONE) Urine Granular Casts None seen (NONE SEEN) Urine Waxy Casts None seen (NONE SEEN) Urine Red Blood Cell Casts None seen (NONE SEEN) Urine White Blood Cell Casts None seen (NONE SEEN) Urine Mucus Present (None Seen) Urine Trichomonas None seen (NONE SEEN) Urine Yeast None (NONE SEEN) Urinalysis Comment None Urine Culture Reflexed Not indicated Neutrophils (%) (Auto) 72.6% (40-74) Lymphocytes (%) (Auto) 13.7% (14-46) Monocytes (%) (Auto) 9.4% (4-12) Eosinophils (%) (Auto) 2.9% (0-5) Basophils (%) (Auto) 1.0% (0-3) White Blood Count 8.2th/mm3 (3.8-10.1) Red Blood Count 4.68mil/mm3 (4.40-5.80) Hemoglobin 13.3g/dL (13.8-17.2) Hematocrit 39.6% (41.0-50.0) Mean Corpuscular Volume 84.6fL (81-100) Mean Corpuscular Hemoglobin 28.4pg (27.0-35.0) Mean Corpuscular Hemoglobin Concent 33.6% (32.0-37.0) Red Cell Distribution Width 18.0% (12.3-15.4) Platelet Count 73bil/L (150-400) Sodium Level 136mEq/L (134-144) Potassium Level 4.2mEq/L (3.5-5.2) Chloride Level 102mEq/L (97-108) Carbon Dioxide Level 21mmol/L (18-29) Blood Urea Nitrogen 15mg/dL (6-24) Creatinine 0.81mg/dL (0.76-1.27) Estimat Glomerular Filtration Rate 104mL/min (>59) Glucose Level 199mg/dL (60-99) Calcium Level 8.5mg/dL (8.5-10.1) Total Bilirubin 3.1mg/dL (0.0-1.2) Aspartate Amino Transf (AST/SGOT) 58U/L (0-50) Alanine Aminotransferase (ALT/SGPT) 38U/L (0-44) Alkaline Phosphatase 119U/L (25-160) Total Protein 6.6g/dL (6.4-8.4) Albumin 3.4g/dL (3.4-5.0) Discharge Medications Discharge Medications Aripiprazole (Aripiprazole) 5 Mg Tablet 5 MG PO DAILY (Reported) Canagliflozin (Invokana) 100 Mg Tablet 100 MG PO QAM (Reported) Fluticasone Propionate (Fluticasone Propionate Nasal) 16 Gm Conifer.susp 1 SPRAY NS BID (Reported) Furosemide (Furosemide) 40 Mg Tablet 40 MG PO DAILY (Reported) Gabapentin (Gabapentin) 100 Mg Capsule 200 MG PO TID (Reported) Lactulose (Lactulose) 10 Gm/15 Ml Solution 20 ML PO BID (Reported) Levocarnitine (Levocarnitine) 330 Mg Tablet 330 MG PO DAILY (Reported) Liraglutide (Victoza 2-Magen) 0.6 Mg/0.1 Ml Pen.injctr 1.2 MG SUBQ QAM (Reported) Metformin (Glucophage) 1,000 Mg Tablet 1,000 MG PO BIDWM (Reported) Mirtazapine (Mirtazapine) 15 Mg Tablet 15 MG PO HS (Reported) Pantoprazole DR (Pantoprazole DR) 40 Mg Tablet.dr 40 MG PO BIDAC Prescribed by: HERO BARRETT MD Quetiapine Fumarate (Seroquel) 50 Mg Tablet 50 MG PO HS (Reported) Rifaximin (Xifaxan) 550 Mg Tablet 550 MG PO BID (Reported) Spironolactone (Spironolactone) 100 Mg Tablet 100 MG PO DAILY (Reported) Triamcinolone Acet (Triamcinolone Acetonide Cream) 4 Applic/Gm Cr 1 APPLIC TOP BID (Reported) As needed Loratadine (Claritin) 10 Mg Capsule 10 MG PO DAILY PRN PRN allergies (Reported) Oxycodone (Roxicodone) 5 Mg Tablet 5 MG PO Q4H PRN PRN For Pain Prescribed by: HERO BARRETT MD Followup Plan Disposition: Home Follow-up plan 1. Followup with primary care provider in 2-5 days 2. Follow up with Gastroenterology (Dr. Ellis) for repeat EGD with banding under anesthesiology in 2 weeks Discharge Diet: Low fat, Low Sodium, Heart Healthy, Diabetic Discharge Activity: No restrictions Patient Instructions Seek immediate medical attention if any new or worsening signs or symptoms occur. Follow-up Provider: Peter Newman DO Provider: Dakota Ellis MD Time spent 35 min copies to: Peter Newman DO; Dakota Ellis MD, Masoud Sep 27, 2016 15:05
--- NOTE | 2016-09-27 15:12 | NUR ---
Discharge Patient anxious about going home, concerned about being alone during the day while is at work and states "I will just be back here in a few days". Social work met with him and he agreed that he would be able to care for himself at home. Patient concerned about pain management. Patient has pain in abd that comes and goes. The MD ordered a short supply of oxycodone and patient to is to follow up with PCP this week regarding pain needs. VSS. No S/sx of further bleeding. A&Ox3. Ambulates independently in room. Tolerating soft diet with no issues, eats 100% at all meals. Patient left unit via WC with all personal belongings, accompanied by his . Discharged home via personal vehicle.
== END 2016-09-27 14:54 | disposition home or self-care (01) | DRG 378 ==
LOC: SED 14:53 → PCC 17:10 → OBSVTOIN 17:10 → PCC 18:28
PROVIDERS: ADMIT Internal Medicine; ATTEND Internal Medicine
PROC: 06L34CZ Occlusion of Esophageal Vein with Extraluminal Device, Percutaneous Endoscopic Approach (ICD-10-PCS; principal; 2016-09-23)
DX: K92.2 Gastrointestinal hemorrhage, unspecified (principal); K76.6 Portal hypertension; I85.00 Esophageal varices without bleeding; K31.89 Other diseases of stomach and duodenum; I10 Essential (primary) hypertension; E11.9 Type 2 diabetes mellitus without complications; K21.9 Gastro-esophageal reflux disease without esophagitis; F17.200 Nicotine dependence, unspecified, uncomplicated; F43.10 Post-traumatic stress disorder, unspecified; K72.10 Chronic hepatic failure without coma; D69.6 Thrombocytopenia, unspecified; K63.5 Polyp of colon; K92.0 Hematemesis; K70.30 Alcoholic cirrhosis of liver without ascites; F10.10 Alcohol abuse, uncomplicated; Z79.4 Long term (current) use of insulin

== ENCOUNTER 2016-09-30 12:53 | Observation (INO) | payer MEDICAID, MEDICARE ==
[~2016-09-30] VITALS: Ht 198.1 cm; Wt 118.2 kg
[~2016-09-30 12:53] MED LIST changes: +ARIP5TAB20 PO; +CANA100T PO; +GABA-500 PO; +LACT10SO PO; +LIDO11JE MM; +LIRA0.6P SUBQ; +METF1000 PO; +MIRT15TA6 PO; +OXYC-474 PO; +PANT40TA3 PO; +RIFA550T3 PO
[2016-09-30 13:07] VITALS: BP 146/62; PULSE 95; RESP 21; O2SAT 99
[2016-09-30] MEDS ORDERED: 0.9% Sodium Chloride 1,000 ML IV ONE (13:45)
[2016-09-30] MEDS ORDERED: Ondansetron 2 mg/mL 2 mL Inj IVPUSH ONE (13:45)
[2016-09-30 13:48] LABS: Mean Corpuscular Hemoglobin 28.7 pg (27.0-35.0)
[2016-09-30 13:51] LABS: BASOPHILS % (AUTO) 0.8 % (0-3); EOSINOPHILS % (AUTO) 3.8 % (0-5); MONOCYTES % (AUTO) 6.3 % (4-12); Mean Corpuscular Volume 84.8 fL (81-100); Platelet Count 86 bil/L (150-400)
--- NOTE | 2016-09-30 13:54 | ED.REPORT ---
HPI-NVD Date of Service Sep 30, 2016 ED Provider: Pradeep Syed PA-C Ghassan is a 61-year-old male with a history of cirrhosis, portal vein hypertension, esophageal varices and diabetes which is the chief complaint of vomiting blood. He reports vomiting several milliliters of blood this morning. He was seen in this department and had 7 esophageal varices banded on 2016, discharged 3 days ago. Reports a sensation of ataxia as well as increased nausea and abdominal pain last night until he vomited this morning. States he has not had a bowel movement in 3 days and is concerned about rising ammonia levels. Reports a great deal of anxiety around this illness. Denies fever, chills. Nursing Notes Stated Complaint: VOMITING Chief Complaint: General Complaint Nursing Notes Reviewed: Yes Allergies: Coded Allergies: lisinopril (Verified Adverse Reaction, Intermediate, cough, 09/30/16) propranolol (Verified Adverse Reaction, Intermediate, PALPITATIONS, HEART RACES, 09/30/16) Scheduled Aripiprazole (Aripiprazole) 5 Mg Tablet 5 MG PO DAILY Canagliflozin (Invokana) 100 Mg Tablet 100 MG PO QAM Fluticasone Propionate (Fluticasone Propionate Nasal) 16 Gm [place].susp 1 SPRAY NS BID Furosemide (Furosemide) 40 Mg Tablet 40 MG PO DAILY Gabapentin (Gabapentin) 100 Mg Capsule 200 MG PO TID Lactulose (Lactulose) 10 Gm/15 Ml Solution 20 ML PO BID Levocarnitine (Levocarnitine) 330 Mg Tablet 330 MG PO DAILY Liraglutide (Victoza 2-Magen) 0.6 Mg/0.1 Ml Pen.injctr 1.2 MG SUBQ QAM Metformin (Glucophage) 1,000 Mg Tablet 1,000 MG PO BIDWM Mirtazapine (Mirtazapine) 15 Mg Tablet 15 MG PO HS Pantoprazole DR (Pantoprazole DR) 40 Mg Tablet.dr 40 MG PO BIDAC Quetiapine Fumarate (Seroquel) 50 Mg Tablet 50 MG PO HS Rifaximin (Xifaxan) 550 Mg Tablet 550 MG PO BID Spironolactone (Spironolactone) 100 Mg Tablet 100 MG PO DAILY Scheduled PRN Cyclobenzaprine (Cyclobenzaprine) 10 Mg Tablet 10 MG PO TID PRN PRN For Spasm Loratadine (Claritin) 10 Mg Capsule 10 MG PO DAILY PRN PRN allergies Lorazepam (Ativan) 1 Mg Tablet 1 MG PO TID PRN PRN For Anxiety or Agitation Oxycodone (Roxicodone) 5 Mg Tablet 5 MG PO Q4H PRN PRN For Pain Triamcinolone Acet (Triamcinolone Acetonide Cream) 4 Applic/Gm Cr 1 APPLIC TOP BID PRN PRN rash General Time Seen by MD: 13:34 Chief Complaint Other (vomiting blood) Past Medical History Past Medical History Notes: Admit November 13-2015 for hepatic encephalopathy, PTSD, and benzodiazepine dependency Past Medical History Cirrhosis of liver (ETOH) chronic thrombocytopenia History of high hepatic encephalopathy Hypertension diabetes GERD PTSD History of spinal stenosis History of heart murmur Reports: Diabetes mellitus, GERD, Hypertension Past Surgical History None Family History Father had multiple AR's with his first being in the 30's Smoking History Current Every Day Smoker Social History History of alcohol abuse, last drink 3 months ago Alcohol Use: In recovery Other Social History: Good social support, , Local resident Occupation Retired [employer] Ambulatory Status Independent Review of Systems Review of Systems Note: Negative unless stated otherwise in history of present illness Physical Exam General: Well appearing, well developed, well nourished, no acute distress. Head: Atraumatic, normocephalic. Eyes: No scleral icterus or injection. No discharge. Vision grossly intact. ENT: Voice clear, hearing grossly intact. Respiratory: Regular rate and rhythm. Breath sounds present, clear to auscultation and equal bilaterally. No respiratory distress. No increased work of breathing, speaks in complete sentences. Cardiovascular: Regular rate and rhythm, without murmur, gallop or rub. No pedal edema. Gastrointestinal: Abdomen flat and diffusely tender with guarding. Bowel sounds normoactive. Rectal: Normal inspection, tone. Nontender without masses. Soft brown stool. Guaiac negative. Skin: Warm and dry. Neurological: Grossly nonfocal. Negative asterixis Psychological: Alert and oriented. Speech appropriate, linear and logical. Behavior appropriate. Initial Vital Signs Vital Signs (First) Date Time Temp Pulse Resp B/P Pulse Ox O2 Delivery O2 Flow Rate FiO2 09/30/16 13:07 36.8 95 21 146/62 99 Room Air Initial VS: Vital signs abnormal (pelvic blood pressure) Interpretation & Diagnostics Lab Results Interpretation Result Diagram: 10/02/16 1109 10/01/16 0605 Test 09/30/16 13:40 Neutrophils (%) (Auto) 77.0% (40-74) Lymphocytes (%) (Auto) 11.8% (14-46) Monocytes (%) (Auto) 6.3% (4-12) Eosinophils (%) (Auto) 3.8% (0-5) Basophils (%) (Auto) 0.8% (0-3) Ammonia 125ug/dL (18-53) Lipase 31U/L (13-60) Hold Guerra Top Tube Received (Received) Re-Eval/Medical Decision Med Decision/Clinical Course 11-year-old male with a history of cirrhosis, hepatic portal hypertension, esophageal varices banded 09/24/2016 presents chief complaint of hematemesis. Patient reports vomiting small amount of red blood this morning. Is concerned that he has not had a bowel movement for several days and "I feel like my ammonia is getting high". He reports "increasing ataxia." Physical examination reveals diffuse abdominal tenderness, most prominent in the upper quadrants. CBC reveals low platelets at 86 and a mild left shift without leukocytosis. Hemoglobin and hematocrit are normal and improved from discharge levels. CMP reveals potassium low at 3.4, creatinine low at 0.63, glucose elevated at 142, total bilirubin elevated at 2.5, AST mildly elevated at 54, ALT mildly elevated at 47. Ammonia elevated at 125. PT normal at 12.1 and INR normal at 1.23. Discussed this case with Dr. Salguero, who met with and examine the patient. I also discussed the case with Dr. Dela Cruz, who advises observing the patient for 24 hours. I discussed this case with Dr. Alvarado, who accepts admit Consultation #1: Referral / Consult Name: Krishna Redmond MD Call Returned at: 16:24 Note: Advises observation up to 24hrs, PPI. Consultation #2: Referral / Consult Name: Shukri Alvarado Consulted With: Hospitalist Call Returned at: 17:06 Knot Bumper: Accepts admit Discharge & Departure Impression: Primary Impression: Hematemesis Nausea presence: with nausea Qualified Code: K92.0 - Hematemesis Referrals: Peter Newman DO (PCP) EDSupervising Provider for APC: Roddy Salguero MD Attending Statement Discussed patient with with MALKA Syed. I reevaluated patient independently and agree with plan as above. In brief, 61-year-old gentleman with history of alcoholic cirrhosis and GI bleed with recent esophageal banding recently discharged several days ago presenting with hematemesis. Case was discussed with GI who recommended admission for observation. Admitted to hospitalist. Pradeep Syed PA-C Sep 30, 2016 13:54 Roddy Salguero MD Sep 30, 2016 17:53 142mg/dL (60-99) Calcium Level 9.2mg/dL (8.5-10.1) Magnesium Level 1.6mg/dL (1.6-2.6) Total Bilirubin 2.5mg/dL (0.0-1.2) Aspartate Amino Transf (AST/SGOT) 54U/L (0-50) Alanine Aminotransferase (ALT/SGPT) 47U/L (0-44) Alkaline Phosphatase 155U/L (25-160) Ammonia 125ug/dL (18-53) Total Protein 7.7g/dL (6.4-8.4) Albumin 3.8g/dL (3.4-5.0) Lipase 31U/L (13-60) Hold Guerra Top Tube Received (Received) Re-Eval/Medical Decision Med Decision/Clinical Course 11-year-old male with a history of cirrhosis, hepatic portal hypertension, esophageal varices banded 09/24/2016 presents chief complaint of hematemesis. Patient reports vomiting small amount of red blood this morning. Is concerned that he has not had a bowel movement for several days and "I feel like my ammonia is getting high". He reports "increasing ataxia." Physical examination reveals diffuse abdominal tenderness, most prominent in the upper quadrants. CBC reveals low platelets at 86 and a mild left shift without leukocytosis. Hemoglobin and hematocrit are normal and improved from discharge levels. CMP reveals potassium low at 3.4, creatinine low at 0.63, glucose elevated at 142, total bilirubin elevated at 2.5, AST mildly elevated at 54, ALT mildly elevated at 47. Ammonia elevated at 125. PT normal at 12.1 and INR normal at 1.23. Discussed this case with Dr. Salguero, who met with and examine the patient. I also discussed the case with Dr. Dela Cruz, who advises observing the patient for 24 hours. I discussed this case with Dr. Alvarado, who accepts admit Consultation #1: Referral / Consult Name: Krishna Redmond MD Call Returned at: 16:24 Note: Advises observation up to 24hrs, PPI. Consultation #2: Referral / Consult Name: Shukri Alvarado Consulted With: Hospitalist Call Returned at: 17:06 Knot Bumper: Accepts admit Discharge & Departure Impression: Primary Impression: Hematemesis Nausea presence: with nausea Qualified Code: K92.0 - Hematemesis Referrals: Peter Newman DO (PCP) EDSupervising Provider for APC: Roddy Salguero MD Attending Statement Discussed patient with with MALKA Syed. I reevaluated patient independently and agree with plan as above. In brief, 61-year-old gentleman with history of alcoholic cirrhosis and GI bleed with recent esophageal banding recently discharged several days ago presenting with hematemesis. Case was discussed with GI who recommended admission for observation. Admitted to hospitalist. Pradeep Syed PA-C Sep 30, 2016 13:54 Roddy Salguero MD Sep 30, 2016 17:53
[2016-09-30 14:02] LABS: INR 1.13 ratio
[2016-09-30 14:08] LABS: Magnesium 1.6 mg/dL (1.6-2.6)
[2016-09-30 14:43] VITALS: BP 128/69; PULSE 79; RESP 20; O2SAT 99
[2016-09-30] MEDS ORDERED: MetoCLOpramide 5 mg/mL 2 mL Inj IVPUSH ONE (16:10)
[2016-09-30 17:01] VITALS: BP 150/73; PULSE 77; RESP 21; O2SAT 99
[2016-09-30] MEDS ORDERED: Alum-Mag Hydrox-Simeth 30 mL Suspension PO PRN ×2 (17:10→18:25)
[2016-09-30] MEDS ORDERED: Ondansetron 2 mg/mL 2 mL Inj IVPUSH PRN ×2 (17:10→18:25)
[2016-09-30 17:15] VITALS: BP 150/73; PULSE 77; RESP 21; O2SAT 99
[2016-09-30] MEDS ORDERED: Polyethylene Glycol (PEG) 17 Gm Powder PO PRN (18:25)
[2016-09-30 18:30] VITALS: BP 144/80; PULSE 82; RESP 17; O2SAT 98
[2016-09-30] MEDS ORDERED: KCl 40 mEq/D5W 500 mL 40 MEQ in IV Premix 500 EACH IV ONE (18:30)
--- NOTE | 2016-09-30 18:33 | PCM.HPMED ---
Subjective Date of Service Sep 30, 2016 Primary Provider: Admitting Physician: Shukri Barrett Primary Care Physician: Peter Newman DO Attending Physician: Shukri Barrett Chief Complaint: Vomiting blood History of Present Illness: 61 year old male with a history of posttraumatic stress disorder, alcoholic liver cirrhosis Child-Pitt class B, esophageal varices, who was discharged just 3 days ago after hospitalization for acute hematemesis for which he underwent EGD on 09/24/[address] Carbajal with findings of four columns of grade 4 esophageal varices status post banding x 7, no gastric varices, and moderate portal hypertensive gastropathy presents today with report of acute episode of hematemesis this morning. He says he was doing fine till this morning (although says has been very nervous and anxious about possibility of bleeding to in his sleep). This morning he was feeling nauseous. Says went to the bathroom and vomited red blood initially. He says he continued to have more vomiting but his vomit subsequently turned in to bile color! No vomiting was noted in the ED and digital rectal exam and guaiac study has been reported as negative. In addition to the symptoms noted above patient also report generalized abdominal pain and ongoing anxiety and is asking for IV narcotics and benzo. Review of Systems: Constitutional: Negative, except as otherwise mentioned in the history above. Ophthalmologic: Negative, except as otherwise mentioned in the history above. Cardiovascular: Negative, except as otherwise mentioned in the history above. Respiratory: Negative, except as otherwise mentioned in the history above. Gastrointestinal: Negative, except as otherwise mentioned in the history above. Genitourinary: Negative, except as otherwise mentioned in the history above. Musculoskeletal: Negative, except as otherwise mentioned in the history above. Neurological: Negative, except as otherwise mentioned in the history above. Psychiatric: Negative, except as otherwise mentioned in the history above. Hematologic/Lymphatic: Negative, except as otherwise mentioned in the history above. Allergic/Immunologic: Negative, except as otherwise mentioned in the history above. Allergies Coded Allergies: lisinopril (Verified Adverse Reaction, Intermediate, cough, 09/30/16) propranolol (Verified Adverse Reaction, Intermediate, PALPITATIONS, HEART RACES, 09/30/16) Home Medications Aripiprazole (Aripiprazole) 5 Mg Tablet 5 MG PO DAILY (Reported) Canagliflozin (Invokana) 100 Mg Tablet 100 MG PO QAM (Reported) Fluticasone Propionate (Fluticasone Propionate Nasal) 16 Gm [place].susp 1 SPRAY NS BID (Reported) Furosemide (Furosemide) 40 Mg Tablet 40 MG PO DAILY (Reported) Gabapentin (Gabapentin) 100 Mg Capsule 200 MG PO TID (Reported) Lactulose (Lactulose) 10 Gm/15 Ml Solution 20 ML PO BID (Reported) Levocarnitine (Levocarnitine) 330 Mg Tablet 330 MG PO DAILY (Reported) Liraglutide (Victoza 2-Magen) 0.6 Mg/0.1 Ml Pen.injctr 1.2 MG SUBQ QAM (Reported) Metformin (Glucophage) 1,000 Mg Tablet 1,000 MG PO BIDWM (Reported) Mirtazapine (Mirtazapine) 15 Mg Tablet 15 MG PO HS (Reported) Pantoprazole DR (Pantoprazole DR) 40 Mg Tablet.dr 40 MG PO BIDAC Prescribed by: SHUKRI BARRETT MD Quetiapine Fumarate (Seroquel) 50 Mg Tablet 50 MG PO HS (Reported) Rifaximin (Xifaxan) 550 Mg Tablet 550 MG PO BID (Reported) Spironolactone (Spironolactone) 100 Mg Tablet 100 MG PO DAILY (Reported) Triamcinolone Acet (Triamcinolone Acetonide Cream) 4 Applic/Gm Cr 1 APPLIC TOP BID (Reported) As needed Loratadine (Claritin) 10 Mg Capsule 10 MG PO DAILY PRN PRN allergies (Reported) Oxycodone (Roxicodone) 5 Mg Tablet 5 MG PO Q4H PRN PRN For Pain Prescribed by: SHUKRI BARRETT MD Exam Lab & Micro Results Laboratory Tests Test 09/30/16 13:40 White Blood Count 6.0th/mm3 (3.8-10.1) Red Blood Count 5.01mil/mm3 (4.40-5.80) Hemoglobin 14.4g/dL (13.8-17.2) Hematocrit 42.5% (41.0-50.0) Mean Corpuscular Volume 84.8fL (81-100) Mean Corpuscular Hemoglobin 28.7pg (27.0-35.0) Mean Corpuscular Hemoglobin Concent 33.9% (32.0-37.0) Red Cell Distribution Width 18.8% (12.3-15.4) Platelet Count 86bil/L (150-400) Neutrophils (%) (Auto) 77.0% (40-74) Lymphocytes (%) (Auto) 11.8% (14-46) Monocytes (%) (Auto) 6.3% (4-12) Eosinophils (%) (Auto) 3.8% (0-5) Basophils (%) (Auto) 0.8% (0-3) Prothrombin Time 12.1sec (8.1-12.5) Prothromb Time International Ratio 1.13ratio Sodium Level 137mEq/L (134-144) Potassium Level 3.4mEq/L (3.5-5.2) Chloride Level 100mEq/L (97-108) Carbon Dioxide Level 19mmol/L (18-29) Blood Urea Nitrogen 12mg/dL (6-24) Creatinine 0.63mg/dL (0.76-1.27) Estimat Glomerular Filtration Rate 139mL/min (>59) Glucose Level 142mg/dL (60-99) Calcium Level 9.2mg/dL (8.5-10.1) Magnesium Level 1.6mg/dL (1.6-2.6) Total Bilirubin 2.5mg/dL (0.0-1.2) Aspartate Amino Transf (AST/SGOT) 54U/L (0-50) Alanine Aminotransferase (ALT/SGPT) 47U/L (0-44) Alkaline Phosphatase 155U/L (25-160) Ammonia 125ug/dL (18-53) Total Protein 7.7g/dL (6.4-8.4) Albumin 3.8g/dL (3.4-5.0) Lipase 31U/L (13-60) Hold Guerra Top Tube Received (Received) Result Diagram: 09/30/16 1340 09/30/16 1340 PMH Cirrhosis of liver (ETOH) Chronic thrombocytopenia History of high hepatic encephalopathy Hypertension Diabetes GERD PTSD History of spinal stenosis History of heart murmur Recent hospitalization for hematemesis and discharged on 09/27 (as noted in HPI) post esophagogastroduodenoscopy (EGD) on 09/24/[address] Carbajal with findings: - Four columns of grade 4 esophageal varices status post banding x 7. - No gastric varices were seen. - Moderate portal hypertensive gastropathy. Colon polyps, chronic. -Colonoscopy by Dr. Ellis as outpatient on 10/27/16 Family History Father had multiple IA's with his first being in the 30's Social History Hx Alcohol Use: No (Has been sober since 06/2016. History of alcohol abuse in the past.) Hx Substance Use: Yes (marijuana) Hx Tobacco Use: Yes (cigars and pipe) Smoking Status: Current Every Day Smoker (smokes cigars. 3/week) Exam Vital Signs Vital Sign - Last Date Time Temp Pulse Resp B/P Pulse Ox O2 Delivery O2 Flow Rate FiO2 09/30/16 17:15 77 21 150/73 99 Room Air 09/30/16 13:07 36.8 General: Alert, Oriented X3, Cooperative, No Acute Distress Head: Normal Eyes: PERRLA, EOMI, Scleral Anicteric Nose: Mucous Membr Moist/[place] Mouth: Mucous Membr Moist/[place] Neck: Supple Chest & Lungs: Chest Wall Normal, Clear to auscultation & percussion Cardiovascular: Regular Rate/Rhythm Pulses: NL carotid, radial, femoral, DP, PT Abdomen: Tender, Non-distended, Normoactive bowel tones, Soft Extremities: No cyanosis/clubbing/edma bilat Neurological: Grossly Neurologically Intact, Cranial Nerves 2-12 Intact, Normal Speech Lab and Diagnostics Result Diagram: 09/30/16 1340 09/30/16 1340 Assessment & Plan 61-year-old male with liver disease and known esophageal varices who is post esophagogastroduodenoscopy (EGD) on 09/24/[address] Carbajal with findings of four columns of grade 4 esophageal varices status post banding x7 presents today with subjective report of an episode of hematemesis prior to presentation # Reported acute hematemesis prior to admission. - This report is somewhat suspect given that patient says his vomit initially started with blood but then turned in to clear bile as he continued to vomit earlier today! - H/H is stable and actually improved compared to recent hospitalization. - NPO - IV Protonix for now - I'm told by ED that GI has already been consulted and recommended patient be admitted for observation and we will followup with their further recommendations - Followup repeat labs in am or sooner if any further evidence of hematemesis during over night. # Alcoholic cirrhosis with chronic hepatic encephalopathy, present on admission. Stable - Elevated ammonia is chronic - Continue outpatient dose of lactulose, rifaximin and miralax # Post traumatic stress disorder, present on admission. Presumed stable - Continue abilify 5 mg daily - Continue mirtazapine 15 mg daily - Ativan as needed for anxiety # Hypertension, chronic. stable - Hold furosemide and spironolactone for tonight until certain patient remains stable - Continue to monitor # Diabetes mellitus, chronic. Presumed stable -Metformin 100 mg twice a day at home; will hold for now -Nutritional and low dose correctional insulin # Colon polyps, chronic. Presumed stable - Colonoscopy by Dr. Ellis as outpatient on 10/27/16 Dispo: likely home in 1-2 days pending stable h/h, ability to tolerate advancing diet, and further GI recommendations GI Prophylaxis: Proton Pump Inhibitor VTE Prophylaxis: SCDs Resuscitation Status: CPR: Attempt Resuscitation (discussed and verified with patient) Time spent 60 min Shukir Barrett Sep 30, 2016 18:33
--- NOTE | 2016-09-30 18:41 | NUR ---
Admit Patient admitted to [facility] via wheelchair, A/O x3. Pain level of 5/10 on abdomen and back. Oriented to room and unit. will continue to monitor.
[2016-09-30 19:25] VITALS: BP 138/71; PULSE 89; RESP 18; O2SAT 97
--- NOTE | 2016-09-30 19:56 | NUR ---
Case Management: LIAM explained to patient at 1945, all questions answered. Signed original placed in chart, patient given a copy. Patient refused the Medicare Part D Drug info. Thania Serna RN
[2016-09-30] MEDS: Dextrose 5% 0.45% NaCl 1,000 ML IV SCH (20:02)
[2016-09-30] MEDS: LORazepam 1 mg Tablet PO PRN (20:02)
[2016-09-30] MEDS: Fluticasone 0.05% 15 Spray/2 Gm 16 Gm Nasal Spray NASAL SCH (21:00)
[2016-09-30] MEDS: Lactulose 20 Gm/30 mL 30 mL Syrup PO SCH (21:00)
[2016-09-30] MEDS: Insulin Human REGular 300 Unit/3 mL Inj SUBQ SCH (21:25)
[2016-10-01] VITALS (8 sets, daily range): BP systolic 101–130; BP diastolic 59–81; PULSE 57–82; RESP 16–18; O2SAT 92–100
[2016-10-01] MEDS: Insulin Human REGular 300 Unit/3 mL Inj SUBQ SCH ×4 (02:30→21:21)
[2016-10-01] MEDS ORDERED: LORazepam 1 mg Tablet PO ONE (03:05)
[2016-10-01] MEDS: LORazepam 1 mg Tablet PO PRN ×3 (04:33→20:45)
--- NOTE | 2016-10-01 05:21 | NUR ---
PO intake/Agitation Pt increasingly upset about NPO status, rationale explained but pt does not want to be NPO and requests a diet. Pt signed [id number]- Advice form and wants gen. diet (Night MD aware). Encouraged pt to stick to soft diet but pt refused. So far tolerates diet well, no N/V all shift, had one BM. Pt getting very involved in room-mates care and keeps talking for room-mate and making himself the voice of his room-mate. Pt getting very agitated in early AM when told that his next Ativan dose was not due for another hour, pt upset about orders from the day hospitalist and and wants to have a different MD in the morning. NIght MD called and order for one additional dose of Ativan received and administered and message passed on about request to change MD.
[2016-10-01 07:02] LABS: Mean Corpuscular Volume 85.6 fL (81-100)
[2016-10-01 07:15] LABS: INR 1.24 ratio
[2016-10-01 07:24] LABS: Magnesium 1.7 mg/dL (1.6-2.6)
[2016-10-01] MEDS: Lactulose 20 Gm/30 mL 30 mL Syrup PO SCH ×2 (08:36→20:45)
[2016-10-01] MEDS: Fluticasone 0.05% 15 Spray/2 Gm 16 Gm Nasal Spray NASAL SCH ×2 (08:57→20:45)
[2016-10-01] MEDS: Pantoprazole 4 mg/mL 10 mL Inj IVPUSH SCH ×2 (11:24→16:06)
--- NOTE | 2016-10-01 11:31 | NUR ---
Social Work- Initial Assessment Data: See Initial Assessment. Pt is a 61 year old male admitted 09/30/16 for hematemesis per H&P. Pt was discharged Sep, discharge plan at that time was home no needs. Pt's insurance is [employer] and pt states secondary is for [employer], though this is not listed. SW met with pt at bedside regarding discharge plan, SW role explained. Pt alert and oriented x3. Pt resides in [place] in a home with his where he remains independent at base. Pt's assists with any medications. Pt uses a cane at baseline, continues to drive. Pt has no HH or SNF history. Pt is working on obtaining VA benefits, pt has no LTC insurance. Pt's DPOA is on file, DPOA is Chiquita Moore [phone]. Pt has a history of ETOH, pt declined additional CD resources at this time. Pt anticipated to discharge home with to transport when medically stable. No anticipated discharge needs. SW will continue to follow. Assessment: [place]. Plan: Pt anticipated to discharge home with to transport when medically stable. No anticipated discharge needs. SW will continue to follow. ZAID Pierce Addendum: 10/01/16 at 1134 by DARERL CERVANTES Amended: Links added.
[2016-10-01] MEDS: Dextrose 5% 0.45% NaCl 1,000 ML IV SCH (12:27)
--- NOTE | 2016-10-01 13:26 | NUR ---
PAIN/ANXIETY/DIET P-Patient c/o anxiety and general abdomen and shoulder pain 6/10. Has signed AMA to be able to eat general diet. I- 1mg Lorazepam given, for anxiety. 2mg MS IVP given as well as 5mg Oxycodone. Patient allowed to eat general diet. E- Patient now rate pain 2/10, appears at ease, and consumed 100% of lunch, denies nausea.
--- NOTE | 2016-10-01 17:16 | PCM.PNMED ---
Subjective Date of Service Oct 01, 2016 Subjective Nausea improved so feels better. complains of right neck muscle pain which flared from vomitting.. Wants muscle relaxant. Exam Vital Signs Vital Sign - Last Date Time Temp Pulse Resp B/P Pulse Ox O2 Delivery O2 Flow Rate FiO2 10/01/16 17:06 36.5 80 16 130/75 95 Room Air Intake and Output 09/30/16 09/30/16 10/01/16 Cumulative From/Thru 15:00 23:00 07:00 09/30/16 13:07 - 10/01/16 06:23 Intake Total 1000 ml 2342 ml 3342 ml Output Total 1130 ml 1130 ml Balance 1000 ml 1212 ml 2212 ml Intake Oral 1406 ml 1406 ml IV Total 1000 ml 936 ml 1936 ml Output Urine Total 1130 ml 1130 ml # Bowel Movements 1 1 Exam Gen: Alert and oriented Heart: regular Lungs: clear Abd; protuberant, bowel tones present, resists much palpation but not tender to light palpation Extrem: no pedal edema IVs and Medications Medications Reviewed: Medications were reviewed in detail Lab and Diagnostics Result Diagram: 10/01/16 0605 10/01/16 0605 Assessment & Plan 61-year-old male with liver disease and known esophageal varices who is post esophagogastroduodenoscopy (EGD) on 09/24/[address] Carbajal with findings of four columns of grade 4 esophageal varices status post banding x7 presents today with subjective report of an episode of hematemesis prior to presentation # Reported acute hematemesis prior to admission. - This report is somewhat suspect given that patient says his vomit initially started with blood but then turned in to clear bile as he continued to vomit earlier today! - H/H is stable on admit and actually improved compared to recent hospitalization. Did drop overnight but may be due to IVF - NPO initially, now on general diet - IV Protonix for now - Reported phone conversation is that this was discussed with GI and they do not plan to do EGD urgently unless further signs of bleeding - Patient says he has follow up EGD (for his recent variceal banding) scheduled on October 14 - Recheck Hgb in am and discharge if stable # Neck muscle pain - heating pad to low setting - Robaxin prn # Alcoholic cirrhosis with chronic hepatic encephalopathy, present on admission. Stable - Elevated ammonia is chronic - Continue outpatient dose of lactulose, rifaximin and miralax # Post traumatic stress disorder, present on admission. Presumed stable - Continue abilify 5 mg daily - Continue mirtazapine 15 mg daily - Ativan as needed for anxiety # Hypertension, chronic. stable - Hold furosemide and spironolactone for tonight until certain patient remains stable - Continue to monitor # Diabetes mellitus, chronic. Presumed stable -Metformin 100 mg twice a day at home; will hold for now -Nutritional and low dose correctional insulin # Colon polyps, chronic. Presumed stable - Colonoscopy by Dr. Ellis as outpatient on 10/27/16 Dispo: likely home in 1-2 days pending stable h/h, ability to tolerate advancing diet, and further GI recommendations GI Prophylaxis: Proton Pump Inhibitor VTE Prophylaxis: SCDs VTE Mechanical Devices: Intermittant Pneumatic CD Resuscitation Status: CPR: Attempt Resuscitation (discussed and verified with patient) Tiana Marsh MD Oct 01, 2016 17:16
--- NOTE | 2016-10-01 19:29 | NUR ---
Transfer of care Care of pt. transferred to mi at 1750 from [facility]. Pt. doing well now, no complaints. Requested to have med schedule posted on white board. IV was leaking and I changed the dressing. Now it flushes just fine.
[2016-10-02 00:53] VITALS: BP 111/64; PULSE 92; RESP 16; O2SAT 95
[2016-10-02] MEDS: Insulin Human REGular 300 Unit/3 mL Inj SUBQ SCH ×3 (02:30→14:30)
[2016-10-02 03:35] VITALS: PULSE 87
[2016-10-02 05:06] VITALS: BP 127/78; PULSE 83; RESP 14; O2SAT 93
--- NOTE | 2016-10-02 07:14 | NUR ---
Pain Pt c/o pain 11/14 during shift, states that he has tolerance to all pain medication and the Morphine, Oxy, Flexeril are only helping a slight bit, but he understands no more can be done right now. Warm blankets several times throughout night helped to make him more comfortable, and distraction with allowing him conversation as well. He would like to talk to day shift physician about a K-PAD.
[2016-10-02] MEDS: Pantoprazole 4 mg/mL 10 mL Inj IVPUSH SCH (07:35)
[2016-10-02] MEDS: Lactulose 20 Gm/30 mL 30 mL Syrup PO SCH (07:36)
[2016-10-02 07:45] VITALS: BP 130/81; PULSE 87; RESP 14; O2SAT 96
[2016-10-02] MEDS: Fluticasone 0.05% 15 Spray/2 Gm 16 Gm Nasal Spray NASAL SCH (07:47)
[2016-10-02 08:01] VITALS: PULSE 92
[2016-10-02 11:16] LABS: Mean Corpuscular Hemoglobin 28.9 pg (27.0-35.0); Mean Corpuscular Volume 85.9 fL (81-100)
[2016-10-02 12:00] VITALS: BP 153/87; PULSE 89; RESP 16; O2SAT 97
--- NOTE | 2016-10-02 12:37 | PCM.DIMED ---
Discharge Instructions Date of Service Oct 02, 2016 Dates of Hospitalization Sep 30, 2016 at 17:07 Discharge Diagnosis Discharge Diagnosis # Reported acute hematemesis prior to admission. # Neck muscle pain # Alcoholic cirrhosis with chronic hepatic encephalopathy, present on admission. # Post traumatic stress disorder, present on admission. # Hypertension, chronic. # Diabetes mellitus, chronic. Diet No restrictions Activity No restrictions Patient Instructions Follow-up with PCP in: 1 week Tiana Marsh MD Oct 02, 2016 12:37
[2016-10-02] MEDS ORDERED: OXYC-474 PO (12:41)
[2016-10-02] MEDS ORDERED: LORA-303 PO (12:41)
[2016-10-02] MEDS ORDERED: CYCL10TA9 PO ×2 (12:41→15:05)
--- NOTE | 2016-10-02 12:47 | PCM.DC.MED ---
Discharge Summary Date of Service Oct 02, 2016 Dates of Hospitalization Date of Hospital Admission Sep 30, 2016 at 17:07 Date of Discharge: Oct 02, 2016 Providers: Admitting Physician: Shukri Barrett Primary Care Physician: Peter Newman DO Attending Physician: Shukri Barrett Diagnosis at Time of Discharge Diagnosis at Time of Discharge # Reported acute hematemesis prior to admission. # Neck muscle pain # Alcoholic cirrhosis with chronic hepatic encephalopathy, present on admission. # Post traumatic stress disorder, present on admission. # Hypertension, chronic. # Diabetes mellitus, chronic. Brief History 61 year old male with a history of posttraumatic stress disorder, alcoholic liver cirrhosis Child-Pitt class B, esophageal varices, who was discharged just 3 days ago after hospitalization for acute hematemesis for which he underwent EGD on 09/24/[address] Carbajal with findings of four columns of grade 4 esophageal varices status post banding x 7, no gastric varices, and moderate portal hypertensive gastropathy presents today with report of acute episode of hematemesis this morning. He says he was doing fine till this morning (although says has been very nervous and anxious about possibility of bleeding to in his sleep). This morning he was feeling nauseous. Says went to the bathroom and vomited red blood initially. He says he continued to have more vomiting but his vomit subsequently turned in to bile color! No vomiting was noted in the ED and digital rectal exam and guaiac study has been reported as negative. In addition to the symptoms noted above patient also report generalized abdominal pain and ongoing anxiety and is asking for IV narcotics and benzo. Hospital Course 61-year-old male with liver disease and known esophageal varices who is post esophagogastroduodenoscopy (EGD) on 09/24/[address] Carbajal with findings of four columns of grade 4 esophageal varices status post banding x7 presents today with subjective report of an episode of hematemesis prior to presentation # Reported acute hematemesis prior to admission. - This report is somewhat suspect given that patient says his vomit initially started with blood but then turned in to clear bile as he continued to vomit earlier today! - H/H is stable on admit and actually improved compared to recent hospitalization. Did drop overnight but may be due to IVF and is stable on am of discharge - NPO initially, now on general diet - IV Protonix during hosp stay - Reported phone conversation is that this was discussed with GI and they do not plan to do EGD urgently unless further signs of bleeding - Patient says he has follow up EGD (for his recent variceal banding) scheduled on October 14 # Neck muscle pain - heating pad to low setting - Flexeril prn # Alcoholic cirrhosis with chronic hepatic encephalopathy, present on admission. Stable - Elevated ammonia is chronic - Continue outpatient dose of lactulose, rifaximin and miralax # Post traumatic stress disorder, present on admission. Presumed stable - Continue abilify 5 mg daily - Continue mirtazapine 15 mg daily - Ativan as needed for anxiety, will give a small amount at discharge as he is very anxious about rebleeding and won't go home unless he has "something to keep me comfortable" # Hypertension, chronic. stable - Held furosemide and spironolactone but should be okay to resume at discharge # Diabetes mellitus, chronic. Presumed stable -Metformin held, okay to resume at discharge -Nutritional and low dose correctional insulin ordered during stay # Colon polyps, chronic. Presumed stable - Colonoscopy by Dr. Ellis as outpatient on 10/27/16 Exam Vital Signs (Last) Date Time Temp Pulse Resp B/P Pulse Ox O2 Delivery O2 Flow Rate FiO2 10/02/16 08:01 92 10/02/16 07:45 36.4 14 130/81 96 10/02/16 05:06 Room Air Test 09/30/16 13:40 09/30/16 22:47 10/01/16 06:05 10/02/16 11:09 Neutrophils (%) (Auto) 77.0% (40-74) Lymphocytes (%) (Auto) 11.8% (14-46) Monocytes (%) (Auto) 6.3% (4-12) Eosinophils (%) (Auto) 3.8% (0-5) Basophils (%) (Auto) 0.8% (0-3) Ammonia 125ug/dL (18-53) Lipase 31U/L (13-60) Hold Guerra Top Tube Received (Received) Hold Urine Received (Received) Prothrombin Time 13.3sec (8.1-12.5) Prothromb Time International Ratio 1.24ratio Activated Partial Thromboplast Time 30.1sec (22.8-33.0) Sodium Level 138mEq/L (134-144) Potassium Level 3.6mEq/L (3.5-5.2) Chloride Level 105mEq/L (97-108) Carbon Dioxide Level 22mmol/L (18-29) Blood Urea Nitrogen 8mg/dL (6-24) Creatinine 0.62mg/dL (0.76-1.27) Estimat Glomerular Filtration Rate 141mL/min (>59) Glucose Level 127mg/dL (60-99) Calcium Level 8.4mg/dL (8.5-10.1) Magnesium Level 1.7mg/dL (1.6-2.6) Total Bilirubin 1.8mg/dL (0.0-1.2) Aspartate Amino Transf (AST/SGOT) 44U/L (0-50) Alanine Aminotransferase (ALT/SGPT) 36U/L (0-44) Alkaline Phosphatase 123U/L (25-160) Total Protein 5.8g/dL (6.4-8.4) Albumin 2.9g/dL (3.4-5.0) White Blood Count 4.1th/mm3 (3.8-10.1) Red Blood Count 4.18mil/mm3 (4.40-5.80) Hemoglobin 12.1g/dL (13.8-17.2) Hematocrit 35.9% (41.0-50.0) Mean Corpuscular Volume 85.9fL (81-100) Mean Corpuscular Hemoglobin 28.9pg (27.0-35.0) Mean Corpuscular Hemoglobin Concent 33.7% (32.0-37.0) Red Cell Distribution Width 18.3% (12.3-15.4) Platelet Count 71bil/L (150-400) Discharge Medications Discharge Medications Aripiprazole (Aripiprazole) 5 Mg Tablet 5 MG PO DAILY (Reported) Canagliflozin (Invokana) 100 Mg Tablet 100 MG PO QAM (Reported) Fluticasone Propionate (Fluticasone Propionate Nasal) 16 Gm [place].susp 1 SPRAY NS BID (Reported) Furosemide (Furosemide) 40 Mg Tablet 40 MG PO DAILY (Reported) Gabapentin (Gabapentin) 100 Mg Capsule 200 MG PO TID (Reported) Lactulose (Lactulose) 10 Gm/15 Ml Solution 20 ML PO BID (Reported) Levocarnitine (Levocarnitine) 330 Mg Tablet 330 MG PO DAILY (Reported) Liraglutide (Victoza 2-Magen) 0.6 Mg/0.1 Ml Pen.injctr 1.2 MG SUBQ QAM (Reported) Metformin (Glucophage) 1,000 Mg Tablet 1,000 MG PO BIDWM (Reported) Mirtazapine (Mirtazapine) 15 Mg Tablet 15 MG PO HS (Reported) Pantoprazole DR (Pantoprazole DR) 40 Mg Tablet.dr 40 MG PO BIDAC Prescribed by: SHUKRI BARRETT MD Quetiapine Fumarate (Seroquel) 50 Mg Tablet 50 MG PO HS (Reported) Rifaximin (Xifaxan) 550 Mg Tablet 550 MG PO BID (Reported) Spironolactone (Spironolactone) 100 Mg Tablet 100 MG PO DAILY (Reported) As needed Cyclobenzaprine (Cyclobenzaprine) 10 Mg Tablet 10 MG PO TID PRN PRN For Spasm Prescribed by: RUTHY MARSH MD Loratadine (Claritin) 10 Mg Capsule 10 MG PO DAILY PRN PRN allergies (Reported) Lorazepam (Ativan) 1 Mg Tablet 1 MG PO TID PRN PRN For Anxiety or Agitation Prescribed by: RUTHY MARSH MD Oxycodone (Roxicodone) 5 Mg Tablet 5 MG PO Q4H PRN PRN For Pain Prescribed by: RUTHY MARSH MD Triamcinolone Acet (Triamcinolone Acetonide Cream) 4 Applic/Gm Cr 1 APPLIC TOP BID PRN PRN rash (Reported) Followup Plan Discharge Diet: No restrictions Discharge Activity: No restrictions Follow-up with PCP in: 1 week Ruthy Marsh MD Oct 02, 2016 12:47
--- NOTE | 2016-10-02 14:42 | NUR ---
Social Work-Readiness for Discharge/Discharge Data: EMR reviewed. Pt is on day 2 of hospitalization for hematemesis per H&P. Pt to discharge today. [place]. Pt to discharge home with to transport when medically stable. No anticipated discharge needs. Assessment: [place]. Plan: Pt anticipated to discharge home with to transport when medically stable. No anticipated discharge needs. ZAID Pierce
--- NOTE | 2016-10-02 16:31 | NUR ---
Discharge Pt discharged to home at 1610 in stable condition. Walking, accompanied by . All scripts, instructions and belongings with pt. No questions or concerns at this time.
== END 2016-10-02 16:10 | disposition home or self-care (01) ==
LOC: SED 12:53 → EDBD 12:53 → MOC 17:07
PROVIDERS: ADMIT Internal Medicine; ATTEND Internal Medicine
DX: K92.0 Hematemesis (principal); M79.1 Myalgia; K70.30 Alcoholic cirrhosis of liver without ascites; K70.40 Alcoholic hepatic failure without coma; F43.10 Post-traumatic stress disorder, unspecified; I10 Essential (primary) hypertension; E11.9 Type 2 diabetes mellitus without complications; K76.6 Portal hypertension; I85.10 Secondary esophageal varices without bleeding; F10.21 Alcohol dependence, in remission; D69.6 Thrombocytopenia, unspecified; K21.9 Gastro-esophageal reflux disease without esophagitis; F17.210 Nicotine dependence, cigarettes, uncomplicated; F12.90 Cannabis use, unspecified, uncomplicated; Z88.8 Allergy status to other drugs, medicaments and biological substances; Z79.84 Long term (current) use of oral hypoglycemic drugs; Z98.890 Other specified postprocedural states; Z86.010 Personal history of colon polyps
CPT/HCPCS: 36415; 80053; 82140; 83690; 83735; 85025; 85027; 85610; 85730; 86850; 96374; 96375; 96376; 99285; G0378; J1815; J2060; J2270; J2405; J2765; J3480; J7030; J7042

== ENCOUNTER 2016-10-14 00:07 | Day surgery (SDC) | payer MEDICARE, MEDICAID ==
[~2016-10-14 00:07] MED LIST changes: -Abilify PO; -CHLO25CA10 PO; +CYCL10TA9 PO; -GABA-502 PO; -LACT10SO60 PO; -LIDO11JE MM; +LORA-303 PO; -Metformin PO; -PANT40TA2 PO; -PREN1TAB25 PO; -Thiamine PO; -mirtazapine PO
[2016-10-14] MEDS ORDERED: Lactated Ringer's 1,000 ML IV ONE (06:00)
[2016-10-15] MEDS ORDERED: ONDA4TAB12 PO (15:30)
== END 2016-10-14 23:59 | disposition home or self-care (01) ==
LOC: END 00:07
PROVIDERS: ATTEND Internal Medicine Gastroenterology
DX: K92.0 Hematemesis (principal); Z53.09 Procedure and treatment not carried out because of other contraindication

== ENCOUNTER 2016-10-15 10:25 | Emergency (ER) | payer MEDICAID, MEDICARE ==
[~2016-10-15] VITALS: Ht 198.1 cm; Wt 113.6 kg
[2016-10-15 10:35] VITALS: BP 166/87; PULSE 64; RESP 12; O2SAT 97
--- NOTE | 2016-10-15 11:02 | ED.REPORT ---
HPI-General Illness Date of Service October 15, 2016 ED Provider: Kellee Miller MD Nursing Notes Stated Complaint: POST BANDING FOR VARICES NON STOP NAUSEA Chief Complaint: Male Abdominal Pain Allergies: Coded Allergies: lisinopril (Verified Adverse Reaction, Intermediate, cough, 09/30/16) propranolol (Verified Adverse Reaction, Intermediate, PALPITATIONS, HEART RACES, 09/30/16) Scheduled Aripiprazole (Aripiprazole) 5 Mg Tablet 5 MG PO DAILY Canagliflozin (Invokana) 100 Mg Tablet 100 MG PO QAM Fluticasone Propionate (Fluticasone Propionate Nasal) 16 Gm [place].susp 1 SPRAY NS BID Furosemide (Furosemide) 40 Mg Tablet 40 MG PO DAILY Gabapentin (Gabapentin) 100 Mg Capsule 200 MG PO TID Lactulose (Lactulose) 10 Gm/15 Ml Solution 20 ML PO BID Levocarnitine (Levocarnitine) 330 Mg Tablet 330 MG PO DAILY Liraglutide (Victoza 2-Magen) 0.6 Mg/0.1 Ml Pen.injctr 1.2 MG SUBQ QAM Metformin (Glucophage) 1,000 Mg Tablet 1,000 MG PO BIDWM Mirtazapine (Mirtazapine) 15 Mg Tablet 15 MG PO HS Pantoprazole DR (Pantoprazole DR) 40 Mg Tablet.dr 40 MG PO BIDAC Quetiapine Fumarate (Seroquel) 50 Mg Tablet 50 MG PO HS Rifaximin (Xifaxan) 550 Mg Tablet 550 MG PO BID Spironolactone (Spironolactone) 100 Mg Tablet 100 MG PO DAILY Scheduled PRN Cyclobenzaprine (Cyclobenzaprine) 10 Mg Tablet 10 MG PO TID PRN PRN For Spasm Loratadine (Claritin) 10 Mg Capsule 10 MG PO DAILY PRN PRN allergies Lorazepam (Ativan) 1 Mg Tablet 1 MG PO TID PRN PRN For Anxiety or Agitation Oxycodone (Roxicodone) 5 Mg Tablet 5 MG PO Q4H PRN PRN For Pain Triamcinolone Acet (Triamcinolone Acetonide Cream) 4 Applic/Gm Cr 1 APPLIC TOP BID PRN PRN rash General Time Seen by MD: 10:52 Past Medical History Past Medical History Notes: Admit November 13-2015 for hepatic encephalopathy, PTSD, and benzodiazepine dependency Past Medical History Cirrhosis of liver (ETOH) chronic thrombocytopenia History of high hepatic encephalopathy Hypertension diabetes GERD PTSD History of spinal stenosis History of heart murmur Reports: Diabetes mellitus, GERD, Hypertension Past Surgical History None Family History Father had multiple TX's with his first being in the 30's Smoking History Current Every Day Smoker Social History History of alcohol abuse, last drink 3 months ago Alcohol Use: In recovery Other Social History: Good social support, , Local resident Occupation Retired [employer] Ambulatory Status Independent Physical Exam Vital Signs Vital Signs Date Time Temp Pulse Resp B/P Pulse Ox O2 Delivery O2 Flow Rate FiO2 10/15/16 13:09 36.7 86 20 134/63 98 Room Air 10/15/16 10:35 36.5 64 12 166/87 97 Room Air Interpretation & Diagnostics Lab Results Interpretation Result Diagram: 10/15/16 1101 10/15/16 1101 Test 10/15/16 11:01 10/15/16 11:35 White Blood Count 5.7th/mm3 (3.8-10.1) Red Blood Count 4.76mil/mm3 (4.40-5.80) Hemoglobin 13.9g/dL (13.8-17.2) Hematocrit 40.7% (41.0-50.0) Mean Corpuscular Volume 85.5fL (81-100) Mean Corpuscular Hemoglobin 29.2pg (27.0-35.0) Mean Corpuscular Hemoglobin Concent 34.2% (32.0-37.0) Red Cell Distribution Width 18.4% (12.3-15.4) Platelet Count 94bil/L (150-400) Neutrophils (%) (Auto) 79.8% (40-74) Lymphocytes (%) (Auto) 8.1% (14-46) Monocytes (%) (Auto) 8.5% (4-12) Eosinophils (%) (Auto) 2.3% (0-5) Basophils (%) (Auto) 1.1% (0-3) Sodium Level 137mEq/L (134-144) Potassium Level 3.8mEq/L (3.5-5.2) Chloride Level 102mEq/L (97-108) Carbon Dioxide Level 20mmol/L (18-29) Blood Urea Nitrogen 10mg/dL (6-24) Creatinine 0.75mg/dL (0.76-1.27) Estimat Glomerular Filtration Rate 113mL/min (>59) Glucose Level 228mg/dL (60-99) Calcium Level 9.2mg/dL (8.5-10.1) Magnesium Level 1.8mg/dL (1.6-2.6) Total Bilirubin 2.4mg/dL (0.0-1.2) Aspartate Amino Transf (AST/SGOT) 64U/L (0-50) Alanine Aminotransferase (ALT/SGPT) 42U/L (0-44) Alkaline Phosphatase 143U/L (25-160) Total Protein 7.7g/dL (6.4-8.4) Albumin 3.3g/dL (3.4-5.0) Lipase 68U/L (13-60) Thyroid Stimulating Hormone (TSH) 2.200uIU/mL (0.450-4.500) Hold Guerra Top Tube Received (Received) Ammonia 157ug/dL (18-53) Discharge & Departure Referrals: Peter Newman DO (PCP) Kellee Miller MD October 15, 2016 11:02 Tatiana Noyola October 15, 2016 14:31 Kellee Miller MD October 15, 2016 11:02 Tatiana Noyola October 15, 2016 14:31
--- NOTE | 2016-10-15 11:02 | ED.REPORT ---
HPI-General Illness Date of Service October 15, 2016 ED Provider: Kellee Miller MD 61 year old male with a history of posttraumatic stress disorder,alcoholic liver cirrhosis Child-Pitt class B, esophageal varices, who was admitted on for acute hematemesis for which he underwent EGD on 09/24/[address] Carbajal with findings of four columns of grade 4 esophageal varices status post banding x 7, no gastric varices, and moderate portal hypertensive gastropathy. Admitted on 09/30 with report of acute episode of hematemesis and nausea. Scheduled for EGD on 10/14 but does not appear to have have that done. Presents today with complaints that they had not addressed his nausea,neuropathy , constant fatigue, weight loss or inability to perform his normal ADLS with his prior admissions.He reports his nausea has significantly worsened and he has been vomiting bile.The pt was on Lactulose but was taken off it as he did not respond to it. The pt also reports experiencing several episodes of ataxia. Nursing Notes Stated Complaint: POST BANDING FOR VARICES NON STOP NAUSEA Chief Complaint: Male Abdominal Pain Nursing Notes Reviewed: Yes Allergies: Coded Allergies: lisinopril (Verified Adverse Reaction, Intermediate, cough, 09/30/16) propranolol (Verified Adverse Reaction, Intermediate, PALPITATIONS, HEART RACES, 09/30/16) Scheduled Aripiprazole (Aripiprazole) 5 Mg Tablet 5 MG PO DAILY Canagliflozin (Invokana) 100 Mg Tablet 100 MG PO QAM Fluticasone Propionate (Fluticasone Propionate Nasal) 16 Gm [place].susp 1 SPRAY NS BID Furosemide (Furosemide) 40 Mg Tablet 40 MG PO DAILY Gabapentin (Gabapentin) 100 Mg Capsule 200 MG PO TID Lactulose (Lactulose) 10 Gm/15 Ml Solution 20 ML PO BID Levocarnitine (Levocarnitine) 330 Mg Tablet 330 MG PO DAILY Liraglutide (Victoza 2-Magen) 0.6 Mg/0.1 Ml Pen.injctr 1.2 MG SUBQ QAM Metformin (Glucophage) 1,000 Mg Tablet 1,000 MG PO BIDWM Mirtazapine (Mirtazapine) 15 Mg Tablet 15 MG PO HS Pantoprazole DR (Pantoprazole DR) 40 Mg Tablet.dr 40 MG PO BIDAC Quetiapine Fumarate (Seroquel) 50 Mg Tablet 50 MG PO HS Rifaximin (Xifaxan) 550 Mg Tablet 550 MG PO BID Spironolactone (Spironolactone) 100 Mg Tablet 100 MG PO DAILY Scheduled PRN Cyclobenzaprine (Cyclobenzaprine) 10 Mg Tablet 10 MG PO TID PRN PRN For Spasm Loratadine (Claritin) 10 Mg Capsule 10 MG PO DAILY PRN PRN allergies Lorazepam (Ativan) 1 Mg Tablet 1 MG PO TID PRN PRN For Anxiety or Agitation Oxycodone (Roxicodone) 5 Mg Tablet 5 MG PO Q4H PRN PRN For Pain Triamcinolone Acet (Triamcinolone Acetonide Cream) 4 Applic/Gm Cr 1 APPLIC TOP BID PRN PRN rash General Time Seen by MD: 10:52 Chief Complaint Multip medical complaints (nausea,neuropathy, fatigue and weight loss) Hx Obtained From: Patient Arrived By: Walk-in Sudden in Onset?: No Onset Occurred: 1 week ago (Worsened yesterday) Symptom Duration: Since onset Severity: Current: No pain currently Severity: Maximum: No pain Recent Healthcare: Recent doctor visit Similar Sx Previous: Yes Past Medical History Past Medical History Notes: Admit November 13-2015 for hepatic encephalopathy, PTSD, and benzodiazepine dependency Past Medical History Cirrhosis of liver (ETOH) chronic thrombocytopenia History of high hepatic encephalopathy Hypertension diabetes GERD PTSD History of spinal stenosis History of heart murmur Reports: Diabetes mellitus, GERD, Hypertension Past Surgical History None Family History Father had multiple OK's with his first being in the 30's Smoking History Current Every Day Smoker Social History History of alcohol abuse, last drink 3 months ago Alcohol Use: In recovery Other Social History: Good social support, , Local resident Occupation Retired [employer] Ambulatory Status Independent Review of Systems Reports: Ataxia Full Review of Systems Constitutional: Reports: Fatigue, Weakness - generalized GI: Reports: Nausea, Vomiting Complete sys rev & neg: except as marked. Physical Exam Vital Signs Vital Signs Date Time Temp Pulse Resp B/P Pulse Ox O2 Delivery O2 Flow Rate FiO2 10/15/16 15:18 36 77 20 142/77 99 Room Air 10/15/16 13:09 36.7 86 20 134/63 98 Room Air 10/15/16 10:35 36.5 64 12 166/87 97 Room Air Initial VS: Reviewed Head / Eyes: Atraumatic, Normocephalic, PERRL ENT: Mucous membranes moist, Conjunctiva normal, No scleral icterus Neck: Supple, Non-tender, Full range of motion Respiratory: Breath sounds normal, Clear to auscultation, No respiratory distress Skin: Warm, Dry, No cyanosis General/Constitutional: Awake, Well appearing, Cooperative Cardiovascular: Heart rate NL, Regular rhythm 2/6 murmur. No jugular venous distention. No telangiectasia. Abdomen: Atraumatic, Soft, Non-tender, No guarding, No rebound No ascites appreciated Lower Extremity / Pelvis / MS: Atraumatic, Full range of motion, Neurologic intact, Vascular intact, No edema Neurologic: Oriented X3, Speech NL, No motor deficits, No sensory deficits Interpretation & Diagnostics Lab Results Interpretation Result Diagram: 10/15/16 1101 10/15/16 1101 Test 10/15/16 11:01 10/15/16 11:35 White Blood Count 5.7th/mm3 (3.8-10.1) Red Blood Count 4.76mil/mm3 (4.40-5.80) Hemoglobin 13.9g/dL (13.8-17.2) Hematocrit 40.7% (41.0-50.0) Mean Corpuscular Volume 85.5fL (81-100) Mean Corpuscular Hemoglobin 29.2pg (27.0-35.0) Mean Corpuscular Hemoglobin Concent 34.2% (32.0-37.0) Red Cell Distribution Width 18.4% (12.3-15.4) Platelet Count 94bil/L (150-400) Neutrophils (%) (Auto) 79.8% (40-74) Lymphocytes (%) (Auto) 8.1% (14-46) Monocytes (%) (Auto) 8.5% (4-12) Eosinophils (%) (Auto) 2.3% (0-5) Basophils (%) (Auto) 1.1% (0-3) Sodium Level 137mEq/L (134-144) Potassium Level 3.8mEq/L (3.5-5.2) Chloride Level 102mEq/L (97-108) Carbon Dioxide Level 20mmol/L (18-29) Blood Urea Nitrogen 10mg/dL (6-24) Creatinine 0.75mg/dL (0.76-1.27) Estimat Glomerular Filtration Rate 113mL/min (>59) Glucose Level 228mg/dL (60-99) Calcium Level 9.2mg/dL (8.5-10.1) Magnesium Level 1.8mg/dL (1.6-2.6) Total Bilirubin 2.4mg/dL (0.0-1.2) Aspartate Amino Transf (AST/SGOT) 64U/L (0-50) Alanine Aminotransferase (ALT/SGPT) 42U/L (0-44) Alkaline Phosphatase 143U/L (25-160) Total Protein 7.7g/dL (6.4-8.4) Albumin 3.3g/dL (3.4-5.0) Lipase 68U/L (13-60) Thyroid Stimulating Hormone (TSH) 2.200uIU/mL (0.450-4.500) Hold Guerra Top Tube Received (Received) Ammonia 157ug/dL (18-53) ECG Interpretation ECG Interpretation: Normal sinus rhythm. Rate 82 Now meeting full right bundle branch block criteria Similar to 09/23 Time: 11:28 Interpreted by: ED physician Re-Eval/Medical Decision Source of Hx: Old records Time of Eval: 14:59 Re-Evaluation/Progress Note: Rechecked pt. He states he is feeling frustrated at his condition. His nausea has improved. Discussed lab results and diagnosis. Informed the pt of the plan to discharge. Pt understands and agrees with plan. F/U instructions and RTER warning given. All questions addressed. Counseled Regarding: Diagnosis, Lab results, Need for follow-up, When/why to return to ED Discharge & Departure Primary Impression: Peripheral neuropathy Peripheral neuropathy type: polyneuropathy, unspecified Qualified Code: G62.9 - Polyneuropathy, unspecified Additional Impressions: Fatigue Fatigue type: unspecified Qualified Code: R53.83 - Other fatigue Cirrhosis Disposition: Home Discharge Condition All VS Reviewed: Yes Additional Instructions: Your labs are reassuring. There are no acute abnormalities in your blood work. I don't have a good explanation for your severe fatigue. I see no indication of heart failure, kidney disease or acute decompensation of your liver disease. Your thyroid is normal. You are not anemic. The next step in your work up will need to be with your primary care provider. With the numbness in both arms/hands, the possibility of a cervical stenois comes to mind. She may suggest MRI of your neck to look into this. Regarding the fatigue, you do have a soft heart murmur (that you said has been present previously). A more thorough evaluation of your heart may be appropriate, this can include echocardiogram and stress testing. For your chronic nause you can take Zofran as prescribed. Follow up with Dr. Ellis to discuss your liver condition further. Return to the emergency department with any new or concerning symptoms. Referrals: Peter Newman DO (PCP) Scribe Attestation Portions of this note were transcribed by Tatiana Noyola. I, , personally performed the history, physical exam and medical decision-making;I reviewed and confirmed the accuracy of the information in the transcribed note. Signed by Osbaldo Valencia. 10/15/16 1523 copies to: Peter Newman Shawna L MD October 15, 2016 11:02 Tatiana Noyola October 15, 2016 11:19
[2016-10-15 11:21] LABS: BASOPHILS % (AUTO) 1.1 % (0-3); EOSINOPHILS % (AUTO) 2.3 % (0-5); MONOCYTES % (AUTO) 8.5 % (4-12); Mean Corpuscular Hemoglobin 29.2 pg (27.0-35.0); Mean Corpuscular Volume 85.5 fL (81-100); NEUTROPHILS % (AUTO) 79.8 % (40-74); Platelet Count 94 bil/L (150-400)
[2016-10-15 11:42] LABS: Magnesium 1.8 mg/dL (1.6-2.6)
[2016-10-15 13:09] VITALS: BP 134/63; PULSE 86; RESP 20; O2SAT 98
[2016-10-15] MEDS ORDERED: Ondansetron 2 mg/mL 2 mL Inj IVPUSH ONE (15:10)
[2016-10-15 15:18] VITALS: BP 142/77; PULSE 77; RESP 20; O2SAT 99
[2016-10-15] MEDS ORDERED: ONDA4TAB12 PO (15:30)
== END 2016-10-15 15:35 | disposition home or self-care (01) ==
LOC: SED 10:25
DX: E11.43 Type 2 diabetes mellitus with diabetic autonomic (poly)neuropathy (principal); G62.9 Polyneuropathy, unspecified; K70.30 Alcoholic cirrhosis of liver without ascites; I10 Essential (primary) hypertension; K21.9 Gastro-esophageal reflux disease without esophagitis; F43.10 Post-traumatic stress disorder, unspecified; F17.200 Nicotine dependence, unspecified, uncomplicated; Z79.84 Long term (current) use of oral hypoglycemic drugs; Z79.899 Other long term (current) drug therapy; Z88.8 Allergy status to other drugs, medicaments and biological substances
CPT/HCPCS: 36415; 80053; 82140; 82607; 82746; 83690; 83735; 84443; 85025; 93005; 96374; 99284; J2405